=== PATIENT | male | born 1950 | race African-American/Black ===

== ENCOUNTER → 2016-09-05 | Outpatient (CLI) | payer MEDICARE, MEDICAID ==
[~2016-09-05] MED LIST: ASPI-825 PO; ATOR20TA86 PO; BIDIL PO; BUME1TAB30 PO; CARV25 PO; FAMO20 PO; FERR-89 PO; FURO20 PO; HYDR50 PO; ISOR40SR PO; OMEP20 PO; OMEP20CA10 PO; OXYC10 PO; OXYC20 PO; PRED5 PO; RANO500T3 PO; SIMV-261 PO; SPIR25TA4 PO; TAMS0.4C32 PO; VITAD400 PO; VITAD50000 PO
[2016-09-05 12:09] LABS: HEMOGLOBIN A1C 6.4 % (4.5-6.2)
[2016-09-05 12:16] LABS: BASOPHILS % (AUTO) 0.3 % (0.0-2.0); EOSINOPHILS % (AUTO) 0.3 % (1.0-6.0); HEMATOCRIT 37.5 % (41-53); HEMOGLOBIN 12.5 g/dL (13.5-17.5); LYMPHOCYTES # (AUTO) 2.5 K/uL (1.0-4.8); LYMPHOCYTES % (AUTO) 33.7 % (22.0-44.0); MEAN CORPUSCULAR HEMOGLOBIN 31.2 pg (26.0-34.0); MEAN CORPUSCULAR HGB CONC 33.2 G/dL (31.0-37.0); MEAN CORPUSCULAR VOLUME 94 fL (80-100); MONOCYTES # (AUTO) 0.7 K/uL (0.1-1.0); NEUTROPHILS # (AUTO) 4.3 K/uL (1.8-7.7); NEUTROPHILS % (AUTO) 56.7 % (40.0-70.0); PLATELET COUNT (AUTO) 170 K/uL (150-450); RED BLOOD CELL COUNT(AUTO) 3.99 MIL/uL (4.50-5.90); RED CELL DISTRIBUTION WIDTH 18.9 % (11.5-14.5); WHITE BLOOD COUNT (AUTO) 7.5 K/uL (4.5-11.0)
[2016-09-05 12:27] LABS: BILIRUBIN,TOTAL 0.6 mg/dL (0.1-1.0); CALCIUM, TOTAL 9.9 mg/dL (8.8-10.5); CHOL/HDL RATIO 2.1 (4.2-7.3); CREATININE 2.68 mg/dL (0.60-1.30); THYROID STIMULATING HORMONE 1.03 uIU/mL (0.36-3.74); TOTAL PROTEIN, SERUM 9.3 g/dL (6.4-8.2)
[2016-09-05 14:52] LABS: RBC MORPHOLOGY COMMENT ABNORMAL RBC MORPH
== END | disposition home or self-care (01) ==
LOC: LABPV 07:14
PROVIDERS: ATTEND Internal Medicine Cardiovascular Disease
DX: I11.0 Hypertensive heart disease with heart failure (principal); I50.9 Heart failure, unspecified; E11.8 Type 2 diabetes mellitus with unspecified complications; E55.9 Vitamin D deficiency, unspecified
CPT/HCPCS: 82306; 83036; 84439; 84443

== ENCOUNTER → 2016-09-07 | Outpatient (CLI) | payer MEDICARE, MEDICAID ==
[~2016-09-07] VITALS: Ht 175.3 cm; Wt 80.5 kg
[2016-09-07 08:56] VITALS: BP 85/45
== END | disposition home or self-care (01) ==
LOC: SRCNTR 08:52
PROVIDERS: ATTEND Hospitalist
DX: I10 Essential (primary) hypertension (principal); E78.5 Hyperlipidemia, unspecified; K21.9 Gastro-esophageal reflux disease without esophagitis; I50.9 Heart failure, unspecified; G89.29 Other chronic pain; J44.9 Chronic obstructive pulmonary disease, unspecified; G89.4 Chronic pain syndrome; E11.65 Type 2 diabetes mellitus with hyperglycemia; N17.9 Acute kidney failure, unspecified
CPT/HCPCS: G0463

== ENCOUNTER → 2016-11-06 | Outpatient (CLI) | payer MEDICARE, MEDICAID ==
[~2016-11-06] VITALS: Ht 175.3 cm; Wt 84.5 kg
[~2016-11-06] MED LIST changes: -FAMO20 PO; -FURO20 PO; -HYDR50 PO; -OMEP20CA10 PO; -RANO500T3 PO; -SIMV-261 PO
[2016-11-06 09:42] VITALS: BP 90/48
== END | disposition home or self-care (01) ==
LOC: SRCNTR 09:29
PROVIDERS: ATTEND Hospitalist
DX: I13.0 Hypertensive heart and chronic kidney disease with heart failure and stage 1 through stage 4 chronic kidney disease, or unspecified chronic kidney disease (principal); N18.9 Chronic kidney disease, unspecified; I50.9 Heart failure, unspecified; E78.5 Hyperlipidemia, unspecified; G47.33 Obstructive sleep apnea (adult) (pediatric); M19.90 Unspecified osteoarthritis, unspecified site; K21.9 Gastro-esophageal reflux disease without esophagitis; I25.2 Old myocardial infarction; K92.2 Gastrointestinal hemorrhage, unspecified; B19.20 Unspecified viral hepatitis C without hepatic coma; I25.10 Atherosclerotic heart disease of native coronary artery without angina pectoris; G89.29 Other chronic pain; M54.9 Dorsalgia, unspecified
CPT/HCPCS: G0463

== ENCOUNTER → 2016-11-13 | Outpatient (CLI) | payer MEDICARE, OTHER ==
[~2016-11-13] MED LIST changes: -FERR-89 PO; -ISOR40SR PO; -VITAD50000 PO
[2016-11-13 10:27] LABS: BASOPHILS # (AUTO) 0.01 K/uL (0.00-0.20); BASOPHILS % (AUTO) 0.2 % (0.0-2.0); EOSINOPHILS # (AUTO) 0.06 K/uL (0.00-0.70); EOSINOPHILS % (AUTO) 1.07 % (1.0-6.0); HEMOGLOBIN 10.3 g/dL (13.5-17.5); LYMPHOCYTES # (AUTO) 1.5 K/uL (1.0-4.8); LYMPHOCYTES % (AUTO) 25.4 % (22.0-44.0); MEAN CORPUSCULAR HGB CONC 33.1 G/dL (31.0-37.0); MEAN CORPUSCULAR VOLUME 100 fL (80-100); MONOCYTES # (AUTO) 0.2 K/uL (0.1-1.0); MONOCYTES % (AUTO) 3.9 % (2.0-9.0); NEUTROPHILS % (AUTO) 69.4 % (40.0-70.0); PLATELET COUNT (AUTO) 122 K/uL (150-450); RED CELL DISTRIBUTION WIDTH 14.5 % (11.5-14.5); WHITE BLOOD COUNT (AUTO) 5.8 K/uL (4.5-11.0)
[2016-11-13 11:02] LABS: HEMOGLOBIN A1C 6.2 % (4.5-6.2)
[2016-11-13 11:11] LABS: ALBUMIN 3.9 g/dL (3.4-5.0); BILIRUBIN,TOTAL 0.2 mg/dL (0.1-1.0); CALCIUM, TOTAL 8.9 mg/dL (8.8-10.5); CHOL/HDL RATIO 2.1 (4.2-7.3); CREATININE 1.79 mg/dL (0.60-1.30); MAGNESIUM 1.4 mg/dL (1.80-2.40); THYROID STIMULATING HORMONE 1.11 uIU/mL (0.36-3.74); TOTAL PROTEIN, SERUM 7.9 g/dL (6.4-8.2)
== END | disposition home or self-care (01) ==
LOC: LABPV 08:49
PROVIDERS: ATTEND Internal Medicine Cardiovascular Disease
DX: I11.0 Hypertensive heart disease with heart failure (principal); I50.9 Heart failure, unspecified; E11.8 Type 2 diabetes mellitus with unspecified complications; E55.9 Vitamin D deficiency, unspecified
CPT/HCPCS: 82306; 83036; 83735; 84443

== ENCOUNTER → 2016-11-29 | Outpatient (CLI) | payer MEDICARE, OTHER | END | disposition home or self-care (01) | LOC: LABPV 07:13 | PROVIDERS: ATTEND Physician Assistant | DX: R97.20 Elevated prostate specific antigen [PSA] (principal) | CPT/HCPCS: 84153 ==

== ENCOUNTER → 2017-01-09 | Outpatient (CLI) | payer MEDICARE, OTHER ==
[2017-01-09 10:00] LABS: BASOPHILS % (AUTO) 0.4 % (0.0-2.0); EOSINOPHILS % (AUTO) 3.9 % (1.0-6.0); HEMATOCRIT 32.2 % (41-53); HEMOGLOBIN 10.9 g/dL (13.5-17.5); LYMPHOCYTES # (AUTO) 1.7 K/uL (1.0-4.8); LYMPHOCYTES % (AUTO) 38.8 % (22.0-44.0); MEAN CORPUSCULAR HEMOGLOBIN 31.7 pg (26.0-34.0); MEAN CORPUSCULAR HGB CONC 33.8 G/dL (31.0-37.0); MEAN CORPUSCULAR VOLUME 94 fL (80-100); MONOCYTES # (AUTO) 0.4 K/uL (0.1-1.0); MONOCYTES % (AUTO) 8.7 % (2.0-9.0); NEUTROPHILS # (AUTO) 2.1 K/uL (1.8-7.7); NEUTROPHILS % (AUTO) 48.2 % (40.0-70.0); PLATELET COUNT (AUTO) 148 K/uL (150-450); RED BLOOD CELL COUNT(AUTO) 3.42 MIL/uL (4.50-5.90); RED CELL DISTRIBUTION WIDTH 14.5 % (11.5-14.5); WHITE BLOOD COUNT (AUTO) 4.4 K/uL (4.5-11.0)
[2017-01-09 10:12] LABS: HEMOGLOBIN A1C 5.7 % (4.5-6.2)
[2017-01-09 10:24] LABS: ALBUMIN 3.8 g/dL (3.4-5.0); BILIRUBIN,TOTAL 0.2 mg/dL (0.1-1.0); CALCIUM, TOTAL 9.5 mg/dL (8.8-10.5); CHOL/HDL RATIO 4.4 (4.2-7.3); CREATININE 1.88 mg/dL (0.60-1.30); MAGNESIUM 2.1 mg/dL (1.80-2.40); POTASSIUM 4.6 mmol/L (3.5-5.1); THYROID STIMULATING HORMONE 0.54 uIU/mL (0.36-3.74); TOTAL PROTEIN, SERUM 8.6 g/dL (6.4-8.2)
[2017-01-10 11:09] LABS: HEPATITIS Bs ANTIGEN SCREEN P Negative (Negative); HEPATITIS C AB SCREEN >11.0 s/co ratio (0.0-0.9)
== END | disposition home or self-care (01) ==
LOC: LABPV 08:13
PROVIDERS: ATTEND Internal Medicine Cardiovascular Disease
DX: I11.0 Hypertensive heart disease with heart failure (principal); I50.9 Heart failure, unspecified; E11.8 Type 2 diabetes mellitus with unspecified complications; E55.9 Vitamin D deficiency, unspecified; B19.20 Unspecified viral hepatitis C without hepatic coma
CPT/HCPCS: 80074; 82306; 83036; 83735; 84439; 84443

== ENCOUNTER → 2017-01-12 | Outpatient (CLI) | payer MEDICARE, OTHER ==
[~2017-01-12] VITALS: Ht 175.3 cm; Wt 83.0 kg
[~2017-01-12] MED LIST changes: +ISOR40SR PO
[2017-01-12 09:37] VITALS: BP 84/54
== END | disposition home or self-care (01) ==
LOC: SRCNTR 09:23
PROVIDERS: ATTEND Hospitalist
DX: G47.33 Obstructive sleep apnea (adult) (pediatric) (principal); E78.5 Hyperlipidemia, unspecified; I50.9 Heart failure, unspecified; I25.10 Atherosclerotic heart disease of native coronary artery without angina pectoris; N18.9 Chronic kidney disease, unspecified; I95.9 Hypotension, unspecified; M54.5 Low back pain; B19.20 Unspecified viral hepatitis C without hepatic coma; R09.81 Nasal congestion
CPT/HCPCS: G0463

== ENCOUNTER → 2017-03-12 | Outpatient (CLI) | payer MEDICARE, OTHER ==
[~2017-03-12] VITALS: Ht 175.3 cm; Wt 80.9 kg
[~2017-03-12] MED LIST changes: +ATOR10TA84 PO; -ATOR20TA86 PO; +BUME1TAB17 PO; -BUME1TAB30 PO; -PRED5 PO
[2017-03-12 09:42] VITALS: BP 110/70
== END | disposition home or self-care (01) ==
LOC: SRCNTR 09:39
PROVIDERS: ATTEND Hospitalist
DX: I10 Essential (primary) hypertension (principal); E78.5 Hyperlipidemia, unspecified; M54.5 Low back pain; M19.90 Unspecified osteoarthritis, unspecified site
CPT/HCPCS: G0463

== ENCOUNTER 2017-04-27 12:22 | Emergency (ER) | payer MEDICARE, OTHER ==
[~2017-04-27] VITALS: Ht 175.3 cm; Wt 81.8 kg
[~2017-04-27 12:22] MED LIST changes: -BIDIL PO; -OMEP20 PO
[2017-04-27] MEDS ORDERED: IBUPROFEN 800 MG TABLET PO ONE (14:30)
[2017-04-27 16:07] VITALS: BP 138/82
[2017-06-18] MEDS ORDERED: VITAD50000 PO (11:06)
[2017-06-18] MEDS ORDERED: ISOS1TAB2 PO (11:06)
[2017-06-18] MEDS ORDERED: NALO25TA PO (11:06)
[2017-06-18] MEDS ORDERED: FERR-89 PO (11:06)
== END 2017-04-27 16:08 | disposition home or self-care (01) ==
LOC: EMS 12:23
DX: M10.9 Gout, unspecified (principal); I11.0 Hypertensive heart disease with heart failure; I50.9 Heart failure, unspecified; I25.10 Atherosclerotic heart disease of native coronary artery without angina pectoris; I25.2 Old myocardial infarction; E78.00 Pure hypercholesterolemia, unspecified; K21.9 Gastro-esophageal reflux disease without esophagitis; F17.210 Nicotine dependence, cigarettes, uncomplicated; Z95.0 Presence of cardiac pacemaker; Z88.5 Allergy status to narcotic agent; Z88.8 Allergy status to other drugs, medicaments and biological substances
CPT/HCPCS: 99284

== ENCOUNTER → 2017-05-09 | Outpatient (CLI) | payer MEDICARE, OTHER ==
[~2017-05-09] MED LIST changes: +FERR-89 PO; +ISOS1TAB2 PO; +NALO25TA PO; +VITAD50000 PO
[2017-05-09 10:36] LABS: BASOPHILS % (AUTO) 0.5 % (0.0-2.0); EOSINOPHILS % (AUTO) 3.2 % (1.0-6.0); HEMATOCRIT 34.5 % (41-53); HEMOGLOBIN 11.6 g/dL (13.5-17.5); LYMPHOCYTES % (AUTO) 34.4 % (22.0-44.0); MEAN CORPUSCULAR HEMOGLOBIN 30.5 pg (26.0-34.0); MEAN CORPUSCULAR HGB CONC 33.8 G/dL (31.0-37.0); MEAN CORPUSCULAR VOLUME 90 fL (80-100); MONOCYTES # (AUTO) 0.4 K/uL (0.1-1.0); MONOCYTES % (AUTO) 7.1 % (2.0-9.0); NEUTROPHILS # (AUTO) 3.1 K/uL (1.8-7.7); NEUTROPHILS % (AUTO) 54.8 % (40.0-70.0); PLATELET COUNT (AUTO) 159 K/uL (150-450); RED BLOOD CELL COUNT(AUTO) 3.82 MIL/uL (4.50-5.90); RED CELL DISTRIBUTION WIDTH 15.7 % (11.5-14.5)
[2017-05-09 10:55] LABS: HEMOGLOBIN A1C 6.4 % (4.5-6.2)
[2017-05-09 11:01] LABS: BILIRUBIN,TOTAL 0.2 mg/dL (0.1-1.0); CALCIUM, TOTAL 9.8 mg/dL (8.8-10.5); CHOL/HDL RATIO 2.7 (4.2-7.3); CREATININE 1.67 mg/dL (0.60-1.30); FREE T4 (FREE THYROXINE) 0.9 ng/dL (0.76-1.46); MAGNESIUM 2.4 mg/dL (1.80-2.40); THYROID STIMULATING HORMONE 0.79 uIU/mL (0.36-3.74)
== END | disposition home or self-care (01) ==
LOC: LABPV 08:21
PROVIDERS: ATTEND Internal Medicine Cardiovascular Disease
DX: I11.0 Hypertensive heart disease with heart failure (principal); I50.9 Heart failure, unspecified; E11.65 Type 2 diabetes mellitus with hyperglycemia; E55.9 Vitamin D deficiency, unspecified
CPT/HCPCS: 82306; 83036; 83735; 84439; 84443

== ENCOUNTER → 2017-05-09 | Outpatient (CLI) | payer MEDICARE, OTHER | END | disposition home or self-care (01) | LOC: LABPV 08:26 | PROVIDERS: ATTEND Urology | DX: C61 Malignant neoplasm of prostate (principal) | CPT/HCPCS: 84153 ==

== ENCOUNTER → 2017-06-06 | Outpatient (CLI) | payer MEDICARE, OTHER ==
[2017-06-06 09:49] LABS: BASOPHILS # (AUTO) 0.02 K/uL (0.00-0.20); BASOPHILS % (AUTO) 0.4 % (0.0-2.0); EOSINOPHILS # (AUTO) 0.12 K/uL (0.00-0.70); EOSINOPHILS % (AUTO) 2.25 % (1.0-6.0); HEMATOCRIT 32.3 % (41-53); HEMOGLOBIN 10.9 g/dL (13.5-17.5); LYMPHOCYTES # (AUTO) 1.9 K/uL (1.0-4.8); LYMPHOCYTES % (AUTO) 36.2 % (22.0-44.0); MEAN CORPUSCULAR HEMOGLOBIN 30.4 pg (26.0-34.0); MEAN CORPUSCULAR HGB CONC 33.8 G/dL (31.0-37.0); MEAN CORPUSCULAR VOLUME 90 fL (80-100); MONOCYTES # (AUTO) 0.5 K/uL (0.1-1.0); NEUTROPHILS # (AUTO) 2.8 K/uL (1.8-7.7); NEUTROPHILS % (AUTO) 52.1 % (40.0-70.0); PLATELET COUNT (AUTO) 159 K/uL (150-450); RED BLOOD CELL COUNT(AUTO) 3.59 MIL/uL (4.50-5.90); RED CELL DISTRIBUTION WIDTH 16.5 % (11.5-14.5); WHITE BLOOD COUNT (AUTO) 5.3 K/uL (4.5-11.0)
[2017-06-06 10:10] LABS: ALBUMIN 3.5 g/dL (3.4-5.0); BILIRUBIN,TOTAL 0.3 mg/dL (0.1-1.0); CALCIUM, TOTAL 9.5 mg/dL (8.8-10.5); CHOL/HDL RATIO 2.7 (4.2-7.3); CREATININE 1.71 mg/dL (0.60-1.30); POTASSIUM 4.3 mmol/L (3.5-5.1); TOTAL PROTEIN, SERUM 8.1 g/dL (6.4-8.2)
== END | disposition home or self-care (01) ==
LOC: LABPV 08:06
PROVIDERS: ATTEND Internal Medicine Cardiovascular Disease
DX: I11.0 Hypertensive heart disease with heart failure (principal); I50.9 Heart failure, unspecified; E11.65 Type 2 diabetes mellitus with hyperglycemia; E55.9 Vitamin D deficiency, unspecified

== ENCOUNTER → 2017-06-18 | Outpatient (CLI) | payer MEDICARE, OTHER ==
[~2017-06-18] VITALS: Ht 175.3 cm; Wt 80.4 kg
[2017-06-18 10:58] VITALS: BP 112/66
== END | disposition home or self-care (01) ==
LOC: SRCNTR 10:45
PROVIDERS: ATTEND Hospitalist
DX: I11.0 Hypertensive heart disease with heart failure (principal); I50.9 Heart failure, unspecified; G47.33 Obstructive sleep apnea (adult) (pediatric); E78.5 Hyperlipidemia, unspecified; B19.20 Unspecified viral hepatitis C without hepatic coma; I25.10 Atherosclerotic heart disease of native coronary artery without angina pectoris; I25.2 Old myocardial infarction; K21.9 Gastro-esophageal reflux disease without esophagitis; G89.4 Chronic pain syndrome; N40.1 Benign prostatic hyperplasia with lower urinary tract symptoms; Z79.82 Long term (current) use of aspirin; Z95.810 Presence of automatic (implantable) cardiac defibrillator
CPT/HCPCS: G0463

== ENCOUNTER → 2017-07-18 | Outpatient (CLI) | payer MEDICARE, OTHER ==
[~2017-07-18] MED LIST changes: -ISOR40SR PO
[2017-07-18 10:41] LABS: BASOPHILS # (AUTO) 0.04 K/uL (0.00-0.20); BASOPHILS % (AUTO) 0.8 % (0.0-2.0); EOSINOPHILS # (AUTO) 0.14 K/uL (0.00-0.70); EOSINOPHILS % (AUTO) 2.54 % (1.0-6.0); HEMATOCRIT 30.2 % (41-53); HEMOGLOBIN 9.9 g/dL (13.5-17.5); LYMPHOCYTES # (AUTO) 2.8 K/uL (1.0-4.8); MEAN CORPUSCULAR HEMOGLOBIN 30.8 pg (26.0-34.0); MEAN CORPUSCULAR HGB CONC 32.7 G/dL (31.0-37.0); MEAN CORPUSCULAR VOLUME 94 fL (80-100); MONOCYTES # (AUTO) 0.4 K/uL (0.1-1.0); MONOCYTES % (AUTO) 7.5 % (2.0-9.0); NEUTROPHILS # (AUTO) 2.2 K/uL (1.8-7.7); NEUTROPHILS % (AUTO) 39.2 % (40.0-70.0); PLATELET COUNT (AUTO) 175 K/uL (150-450); RED BLOOD CELL COUNT(AUTO) 3.21 MIL/uL (4.50-5.90); RED CELL DISTRIBUTION WIDTH 16.4 % (11.5-14.5)
[2017-07-18 11:21] LABS: ALBUMIN 3.8 g/dL (3.4-5.0); BILIRUBIN,TOTAL 0.2 mg/dL (0.1-1.0); CALCIUM, TOTAL 9.6 mg/dL (8.8-10.5); CHOL/HDL RATIO 2.1 (4.2-7.3); CREATININE 1.47 mg/dL (0.60-1.30); POTASSIUM 4.1 mmol/L (3.5-5.1); TOTAL PROTEIN, SERUM 8.8 g/dL (6.4-8.2)
== END | disposition home or self-care (01) ==
LOC: LABPV 08:23
PROVIDERS: ATTEND Internal Medicine Cardiovascular Disease
DX: I11.0 Hypertensive heart disease with heart failure (principal); I50.9 Heart failure, unspecified; E11.8 Type 2 diabetes mellitus with unspecified complications; E55.9 Vitamin D deficiency, unspecified

== ENCOUNTER → 2017-08-13 | Outpatient (CLI) | payer MEDICARE, OTHER | END | disposition home or self-care (01) | LOC: LABPV 09:01 | PROVIDERS: ATTEND Urology | DX: C61 Malignant neoplasm of prostate (principal) | CPT/HCPCS: 84153 ==

== ENCOUNTER → 2017-10-18 | Outpatient (CLI) | payer MEDICARE, OTHER ==
[2017-10-18 12:16] LABS: BASOPHILS % (AUTO) 0.5 % (0.0-2.0); EOSINOPHILS % (AUTO) 1.8 % (1.0-6.0); HEMOGLOBIN 11.3 g/dL (13.5-17.5); LYMPHOCYTES # (AUTO) 1.8 K/uL (1.0-4.8); LYMPHOCYTES % (AUTO) 25.8 % (22.0-44.0); MEAN CORPUSCULAR HEMOGLOBIN 32.1 pg (26.0-34.0); MEAN CORPUSCULAR HGB CONC 34.2 G/dL (31.0-37.0); MEAN CORPUSCULAR VOLUME 94 fL (80-100); MONOCYTES # (AUTO) 0.6 K/uL (0.1-1.0); MONOCYTES % (AUTO) 8.8 % (2.0-9.0); NEUTROPHILS # (AUTO) 4.5 K/uL (1.8-7.7); NEUTROPHILS % (AUTO) 63.1 % (40.0-70.0); PLATELET COUNT (AUTO) 208 K/uL (150-450); RED BLOOD CELL COUNT(AUTO) 3.51 MIL/uL (4.50-5.90); RED CELL DISTRIBUTION WIDTH 15.8 % (11.5-14.5)
[2017-10-18 12:25] LABS: ALBUMIN 3.6 g/dL (3.4-5.0); BILIRUBIN,TOTAL 0.2 mg/dL (0.1-1.0); CALCIUM, TOTAL 9.1 mg/dL (8.8-10.5); CREATININE 2.11 mg/dL (0.60-1.30); POTASSIUM 4.5 mmol/L (3.5-5.1); TOTAL PROTEIN, SERUM 8.5 g/dL (6.4-8.2)
== END | disposition home or self-care (01) ==
LOC: LABPV 08:58
PROVIDERS: ATTEND Internal Medicine Cardiovascular Disease
DX: I11.0 Hypertensive heart disease with heart failure (principal); I50.9 Heart failure, unspecified; E11.8 Type 2 diabetes mellitus with unspecified complications; E55.9 Vitamin D deficiency, unspecified

== ENCOUNTER → 2017-11-13 | Outpatient (CLI) | payer MEDICARE, OTHER ==
[~2017-11-13] MED LIST changes: +CARV3 PO; -SPIR25TA4 PO; +SPIR25TA6 PO
== END | disposition home or self-care (01) ==
LOC: LABPV 08:26
PROVIDERS: ATTEND Urology
DX: C61 Malignant neoplasm of prostate (principal)
CPT/HCPCS: 84153

== ENCOUNTER 2017-11-22 09:07 | Emergency (ER) | payer MEDICARE, OTHER ==
[~2017-11-22] VITALS: Ht 175.3 cm; Wt 77.2 kg
[~2017-11-22 09:07] MED LIST changes: -CARV25 PO; -SPIR25TA6 PO
[2017-11-22 13:41] VITALS: BP 132/75
== END 2017-11-22 13:44 | disposition home or self-care (01) ==
LOC: EMS 09:10
DX: M54.2 Cervicalgia (principal); R51 Headache; I11.0 Hypertensive heart disease with heart failure; I50.9 Heart failure, unspecified; E78.00 Pure hypercholesterolemia, unspecified; I25.10 Atherosclerotic heart disease of native coronary artery without angina pectoris; K21.9 Gastro-esophageal reflux disease without esophagitis; F17.210 Nicotine dependence, cigarettes, uncomplicated; Z88.5 Allergy status to narcotic agent; Z88.8 Allergy status to other drugs, medicaments and biological substances; V43.62XA Car passenger injured in collision with other type car in traffic accident, initial encounter; Y93.89 Activity, other specified; Y92.89 Other specified places as the place of occurrence of the external cause; Y99.8 Other external cause status
CPT/HCPCS: 70450; 72125; 99284

== ENCOUNTER → 2018-01-22 | Outpatient (CLI) | payer MEDICARE, OTHER ==
[2018-01-22 12:49] LABS: CALCIUM, TOTAL 9.2 mg/dL (8.8-10.5); CREATININE 1.75 mg/dL (0.60-1.30); POTASSIUM 3.7 mmol/L (3.5-5.1)
== END | disposition home or self-care (01) ==
LOC: LABPV 10:54
PROVIDERS: ATTEND Urology
DX: C61 Malignant neoplasm of prostate (principal); I11.0 Hypertensive heart disease with heart failure; I50.9 Heart failure, unspecified; E78.00 Pure hypercholesterolemia, unspecified

== ENCOUNTER → 2018-01-23 | Outpatient (CLI) | payer MEDICARE, OTHER ==
[2018-01-23 10:05] LABS: BASOPHILS % (AUTO) 0.2 % (0.0-2.0); EOSINOPHILS % (AUTO) 2.2 % (1.0-6.0); HEMATOCRIT 34.5 % (41-53); HEMOGLOBIN 11.8 g/dL (13.5-17.5); LYMPHOCYTES # (AUTO) 2.3 K/uL (1.0-4.8); LYMPHOCYTES % (AUTO) 35.8 % (22.0-44.0); MEAN CORPUSCULAR HEMOGLOBIN 32.3 pg (26.0-34.0); MEAN CORPUSCULAR HGB CONC 34.2 G/dL (31.0-37.0); MEAN CORPUSCULAR VOLUME 95 fL (80-100); MONOCYTES # (AUTO) 0.6 K/uL (0.1-1.0); MONOCYTES % (AUTO) 9.6 % (2.0-9.0); NEUTROPHILS # (AUTO) 3.3 K/uL (1.8-7.7); NEUTROPHILS % (AUTO) 52.2 % (40.0-70.0); PLATELET COUNT (AUTO) 177 K/uL (150-450); RED BLOOD CELL COUNT(AUTO) 3.65 MIL/uL (4.50-5.90); RED CELL DISTRIBUTION WIDTH 15.4 % (11.5-14.5)
[2018-01-23 10:13] LABS: HEMOGLOBIN A1C 5.5 % (4.5-6.2)
[2018-01-23 10:23] LABS: ALBUMIN 3.6 g/dL (3.4-5.0); BILIRUBIN,TOTAL 0.2 mg/dL (0.1-1.0); CALCIUM, TOTAL 9.3 mg/dL (8.8-10.5); CHOL/HDL RATIO 1.9 (4.2-7.3); CREATININE 1.49 mg/dL (0.60-1.30); FREE T4 (FREE THYROXINE) 1.04 ng/dL (0.76-1.46); MAGNESIUM 2.1 mg/dL (1.80-2.40); POTASSIUM 4.1 mmol/L (3.5-5.1); THYROID STIMULATING HORMONE 0.81 uIU/mL (0.36-3.74); TOTAL PROTEIN, SERUM 8.3 g/dL (6.4-8.2)
== END | disposition home or self-care (01) ==
LOC: LABPV 07:44
PROVIDERS: ATTEND Internal Medicine Cardiovascular Disease
DX: I11.0 Hypertensive heart disease with heart failure (principal); I50.9 Heart failure, unspecified; E11.8 Type 2 diabetes mellitus with unspecified complications; E55.9 Vitamin D deficiency, unspecified; D56.5 Hemoglobin E-beta thalassemia; E78.00 Pure hypercholesterolemia, unspecified
CPT/HCPCS: 82306; 83036; 83735; 84439; 84443

== ENCOUNTER → 2018-02-07 | Outpatient (CLI) | payer MEDICARE, OTHER ==
[~2018-02-07] MED LIST changes: +IOVERSOL 350 MG/ML 150 ML VIAL ONE; +SODIUM CHLORIDE 0.9% 100 ML ONE
== END | disposition home or self-care (01) ==
LOC: RADMN 09:59
PROVIDERS: ATTEND Urology
DX: M47.896 Other spondylosis, lumbar region (principal); M51.36 Other intervertebral disc degeneration, lumbar region; K40.90 Unilateral inguinal hernia, without obstruction or gangrene, not specified as recurrent; I70.0 Atherosclerosis of aorta; R97.20 Elevated prostate specific antigen [PSA]; I13.0 Hypertensive heart and chronic kidney disease with heart failure and stage 1 through stage 4 chronic kidney disease, or unspecified chronic kidney disease; I50.9 Heart failure, unspecified; E11.22 Type 2 diabetes mellitus with diabetic chronic kidney disease; N18.9 Chronic kidney disease, unspecified; E11.65 Type 2 diabetes mellitus with hyperglycemia; E78.5 Hyperlipidemia, unspecified; E78.00 Pure hypercholesterolemia, unspecified; J44.9 Chronic obstructive pulmonary disease, unspecified; F17.210 Nicotine dependence, cigarettes, uncomplicated; K21.9 Gastro-esophageal reflux disease without esophagitis; Z88.8 Allergy status to other drugs, medicaments and biological substances; Z88.5 Allergy status to narcotic agent; Z79.899 Other long term (current) drug therapy
CPT/HCPCS: 72194; J7050; Q9967

== ENCOUNTER 2018-03-31 16:15 | Emergency (ER) | payer MEDICARE, OTHER ==
[~2018-03-31] VITALS: Ht 172.7 cm; Wt 78.0 kg
[~2018-03-31 16:15] MED LIST changes: -IOVERSOL 350 MG/ML 150 ML VIAL ONE; -SODIUM CHLORIDE 0.9% 100 ML ONE
[2018-03-31] MEDS ORDERED: SODIUM CHLORIDE 0.9% 1,000 ML IV ONE (17:30)
[2018-03-31] MEDS ORDERED: KETOROLAC TROMETHAMINE 30 MG/ML VIAL IVP ONE (17:30)
[2018-03-31 17:45] LABS: BASOPHILS % (AUTO) 0.3 % (0.0-2.0); EOSINOPHILS % (AUTO) 1.3 % (1.0-6.0); HEMATOCRIT 35.5 % (41-53); LYMPHOCYTES # (AUTO) 2.2 K/uL (1.0-4.8); LYMPHOCYTES % (AUTO) 37.1 % (22.0-44.0); MEAN CORPUSCULAR HEMOGLOBIN 32.2 pg (26.0-34.0); MEAN CORPUSCULAR HGB CONC 33.7 G/dL (31.0-37.0); MEAN CORPUSCULAR VOLUME 96 fL (80-100); MONOCYTES # (AUTO) 0.5 K/uL (0.1-1.0); NEUTROPHILS # (AUTO) 3.2 K/uL (1.8-7.7); NEUTROPHILS % (AUTO) 53.3 % (40.0-70.0); PLATELET COUNT (AUTO) 164 K/uL (150-450); RED BLOOD CELL COUNT(AUTO) 3.71 MIL/uL (4.50-5.90); RED CELL DISTRIBUTION WIDTH 14.7 % (11.5-14.5)
[2018-03-31 17:53] LABS: ANION GAP 8 mmol/L (8-16); CALCIUM, TOTAL 9.1 mg/dL (8.8-10.5); CARBON DIOXIDE 26 mmol/L (22-29); CHLORIDE 105 mmol/L (98-107); CREATININE 1.27 mg/dL (0.60-1.30); GLOMERULAR FILTR. RATE CALC > 60 mL/min (>60); GLUCOSE,RANDOM 95 mg/dL (70-110); SODIUM SERUM 139 mmol/L (136-145); UREA NITROGEN, BLOOD 17 mg/dL (7-18)
[2018-03-31 17:56] LABS: INR 1.1 (0.9-1.1); PROTHROMBIN TIME 11.1 SEC (9.4-11.6)
[2018-03-31 18:14] LABS: APPEARANCE,URINE CLEAR (CLEAR); BILIRUBIN,URINE NEGATIVE (NEGATIVE); GLUCOSE, URINE (UA) NEGATIVE (NEGATIVE); KETONES,URINE NEGATIVE (NEGATIVE); LEUKOCYTE ESTERASE ,URINE SMALL (NEGATIVE); NITRATE,URINE NEGATIVE (NEGATIVE); OCCULT BLOOD,URINE NEGATIVE (NEGATIVE); PROTEIN,URINE NEGATIVE (NEGATIVE); UROBILINOGEN,URINE 0.2 mg/dL (<=1.0)
[2018-03-31 18:17] LABS: ALANINE AMINOTRANSFERASE 26 U/L (12-78); ALBUMIN 3.5 g/dL (3.4-5.0); ALKALINE PHOSPHATASE 68 U/L (46-116); ASPARTATE AMINOTRANSFERASE 22 U/L (15-37); BILIRUBIN,TOTAL 0.2 mg/dL (0.1-1.0); CREATINE KINASE, TOTAL ONLY 162 U/L (39-308); LIPASE 299 U/L (73-393); TOTAL PROTEIN, SERUM 8.1 g/dL (6.4-8.2)
[2018-03-31 18:34] LABS: BACTERIA,URINE Few /HPF (None Seen); RBC,URINE 0-2 /HPF (0-2); SQUAMOUS EPITHELIAL CELL,UR Moderate /LPF (None Seen); WBC,URINE 26-50 /HPF (0-5)
[2018-03-31] MEDS ORDERED: CefTRIAXone SODIUM 1 GM in DEXTROSE 5%-WATER 10 ML IV ONE (19:15)
[2018-03-31 20:30] VITALS: BP 156/96
== END 2018-03-31 20:38 | disposition home or self-care (01) ==
LOC: EMS 16:16
DX: N39.0 Urinary tract infection, site not specified (principal); F17.210 Nicotine dependence, cigarettes, uncomplicated; I25.10 Atherosclerotic heart disease of native coronary artery without angina pectoris; I11.0 Hypertensive heart disease with heart failure; I50.9 Heart failure, unspecified; I25.2 Old myocardial infarction; N48.30 Priapism, unspecified; K21.9 Gastro-esophageal reflux disease without esophagitis; E78.00 Pure hypercholesterolemia, unspecified; Z95.0 Presence of cardiac pacemaker; Z98.890 Other specified postprocedural states; Z89.021 Acquired absence of right finger(s); Z88.5 Allergy status to narcotic agent; Z88.8 Allergy status to other drugs, medicaments and biological substances; Z79.82 Long term (current) use of aspirin; Z79.891 Long term (current) use of opiate analgesic; Z79.899 Other long term (current) drug therapy
CPT/HCPCS: 36415; 80053; 81001; 82550; 83690; 84484; 85025; 85610; 85730; 87086; 93005; 96365; 96375; 99285; J0696; J1885; J7030; J7060

== ENCOUNTER → 2018-04-04 | Outpatient (CLI) | payer MEDICARE, MEDICAID ==
[~2018-04-04] MED LIST changes: -OXYC10 PO; -VITAD400 PO
[2018-04-04 11:03] LABS: BASOPHILS % (AUTO) 0.7 % (0.0-2.0); EOSINOPHILS % (AUTO) 1.8 % (1.0-6.0); HEMATOCRIT 31.3 % (41-53); HEMOGLOBIN 10.6 g/dL (13.5-17.5); LYMPHOCYTES # (AUTO) 1.6 K/uL (1.0-4.8); LYMPHOCYTES % (AUTO) 31.1 % (22.0-44.0); MEAN CORPUSCULAR HEMOGLOBIN 32.6 pg (26.0-34.0); MEAN CORPUSCULAR HGB CONC 33.8 G/dL (31.0-37.0); MEAN CORPUSCULAR VOLUME 96 fL (80-100); MONOCYTES # (AUTO) 0.5 K/uL (0.1-1.0); MONOCYTES % (AUTO) 10.3 % (2.0-9.0); NEUTROPHILS # (AUTO) 2.9 K/uL (1.8-7.7); NEUTROPHILS % (AUTO) 56.1 % (40.0-70.0); PLATELET COUNT (AUTO) 148 K/uL (150-450); RED BLOOD CELL COUNT(AUTO) 3.26 MIL/uL (4.50-5.90)
[2018-04-04 11:10] LABS: HEMOGLOBIN A1C 5.5 % (4.5-6.2)
[2018-04-04 11:18] LABS: ALBUMIN 3.6 g/dL (3.4-5.0); BILIRUBIN,TOTAL 0.2 mg/dL (0.1-1.0); CALCIUM, TOTAL 9.4 mg/dL (8.8-10.5); CHOL/HDL RATIO 2.2 (4.2-7.3); CREATININE 1.53 mg/dL (0.60-1.30); FREE T4 (FREE THYROXINE) 1.09 ng/dL (0.76-1.46); POTASSIUM 4.7 mmol/L (3.5-5.1); THYROID STIMULATING HORMONE 0.74 uIU/mL (0.36-3.74)
== END | disposition home or self-care (01) ==
LOC: LABPV 08:39
PROVIDERS: ATTEND Internal Medicine Cardiovascular Disease
DX: I11.0 Hypertensive heart disease with heart failure (principal); I50.9 Heart failure, unspecified; E11.8 Type 2 diabetes mellitus with unspecified complications; E55.9 Vitamin D deficiency, unspecified; D56.5 Hemoglobin E-beta thalassemia
CPT/HCPCS: 82306; 83036; 83735; 84439; 84443

== ENCOUNTER → 2018-04-04 | Outpatient (CLI) | payer MEDICARE, MEDICAID | END | disposition home or self-care (01) | LOC: LABPV 08:46 | PROVIDERS: ATTEND Urology | DX: R97.20 Elevated prostate specific antigen [PSA] (principal) | CPT/HCPCS: 84153 ==

== ENCOUNTER 2018-05-13 17:26 | Inpatient (IN) | payer MEDICARE, OTHER ==
[~2018-05-13] VITALS: Ht 175.3 cm; Wt 75.7 kg
[2018-05-13 16:50] VITALS: BP 156/90
[2018-05-13] MEDS ORDERED: ACETAMINOPHEN 325 MG TABLET PO PRN (17:45)
[2018-05-13] MEDS ORDERED: ONDANSETRON HCL 4 MG/2 ML VIAL IVP PRN (19:00)
[2018-05-13] MEDS ORDERED: ZOLPIDEM TARTRATE 5 MG TABLET PO PRN (19:00)
[2018-05-13] MEDS ORDERED: OxyCODONE HCL/ACETAMINOPHEN 5-325 MG TABLET PO PRN (19:00)
[2018-05-13] MEDS ORDERED: BENZOCAINE/MENTHOL LOZENGE PO PRN (19:00)
[2018-05-13] MEDS ORDERED: DiphenhydrAMINE HCL 50 MG/ML VIAL IVP PRN (19:00)
[2018-05-13] MEDS ORDERED: BISACODYL 10 MG RECTAL RECTAL SUPPOSITORY PR PRN (19:00)
[2018-05-13] MEDS ORDERED: MAG HYDROX/AL HYDROX/SIMETH 30 ML SUSP UDCUP PO PRN (19:00)
[2018-05-13] MEDS ORDERED: HYDROmorphone 2 MG/ML SYRINGE IVP PRN (19:00)
[2018-05-13 20:27] VITALS: BP 145/106
[2018-05-13] MEDS: ISOSORB DINIT/HYDRALAZINE HCL 20-37.5 MG TABLET PO SCH (20:28)
[2018-05-13] MEDS: SENNA 187 MG TABLET PO SCH (20:29)
[2018-05-13] MEDS: CARVEDILOL 3.125 MG TABLET PO SCH (20:29)
[2018-05-13] MEDS: DOCUSATE SODIUM 100 MG CAPSULE PO SCH (20:29)
[2018-05-13] MEDS: OxyCODONE HCL 10 MG ER TABLET PO SCH (20:29)
[2018-05-13] MEDS ORDERED: ENOXAPARIN SODIUM 30 MG/0.3 ML PF SYRINGE SQ SCH (21:00)
[2018-05-14 03:15] VITALS: BP 141/81
[2018-05-14] MEDS ORDERED: ONDANSETRON HCL 4 MG TABLET PO PRN (03:45)
[2018-05-14 06:28] LABS: BASOPHILS % (AUTO) 0.2 % (0.0-2.0); EOSINOPHILS % (AUTO) 0.1 % (1.0-6.0); HEMATOCRIT 37.8 % (41-53); LYMPHOCYTES # (AUTO) 2.6 K/uL (1.0-4.8); LYMPHOCYTES % (AUTO) 19.6 % (22.0-44.0); MEAN CORPUSCULAR HEMOGLOBIN 31.8 pg (26.0-34.0); MEAN CORPUSCULAR HGB CONC 34.4 G/dL (31.0-37.0); MEAN CORPUSCULAR VOLUME 92 fL (80-100); MONOCYTES # (AUTO) 1.2 K/uL (0.1-1.0); MONOCYTES % (AUTO) 8.9 % (2.0-9.0); NEUTROPHILS # (AUTO) 9.5 K/uL (1.8-7.7); NEUTROPHILS % (AUTO) 71.2 % (40.0-70.0); PLATELET COUNT (AUTO) 347 K/uL (150-450); RED BLOOD CELL COUNT(AUTO) 4.09 MIL/uL (4.50-5.90)
[2018-05-14 06:48] LABS: ALANINE AMINOTRANSFERASE 33 U/L (12-78); ALKALINE PHOSPHATASE 88 U/L (46-116); ANION GAP 8 mmol/L (8-16); ASPARTATE AMINOTRANSFERASE 21 U/L (15-37); BILIRUBIN,TOTAL 0.2 mg/dL (0.1-1.0); CALCIUM, TOTAL 9.5 mg/dL (8.8-10.5); CARBON DIOXIDE 29 mmol/L (22-29); CHLORIDE 97 mmol/L (98-107); CREATININE 1.31 mg/dL (0.60-1.30); GLOMERULAR FILTR. RATE CALC > 60 mL/min (>60); GLUCOSE,RANDOM 104 mg/dL (70-110); POTASSIUM 4.3 mmol/L (3.5-5.1); SODIUM SERUM 134 mmol/L (136-145); TOTAL PROTEIN, SERUM 8.7 g/dL (6.4-8.2); UREA NITROGEN, BLOOD 45 mg/dL (7-18)
[2018-05-14 08:09] VITALS: BP 142/82
[2018-05-14] MEDS: ATORVASTATIN CALCIUM 10 MG TABLET PO SCH (08:21)
[2018-05-14] MEDS: BUMETANIDE 1 MG TABLET PO SCH (08:21)
[2018-05-14] MEDS: TAMSULOSIN HCL 0.4 MG CAPSULE PO SCH (08:21)
[2018-05-14] MEDS: ISOSORB DINIT/HYDRALAZINE HCL 20-37.5 MG TABLET PO SCH ×3 (08:21→20:50)
[2018-05-14] MEDS: FERROUS SULFATE 325 MG EC TABLET PO SCH ×2 (08:21→17:36)
[2018-05-14] MEDS: DOCUSATE SODIUM 100 MG CAPSULE PO SCH ×2 (08:21→20:50)
[2018-05-14] MEDS: CARVEDILOL 3.125 MG TABLET PO SCH ×2 (08:21→20:50)
[2018-05-14] MEDS: PANTOPRAZOLE SODIUM 40 MG DR TABLET PO SCH (08:22)
[2018-05-14] MEDS: ASPIRIN 81 MG CHEWABLE TABLET PO SCH (08:22)
[2018-05-14] MEDS: OxyCODONE HCL 10 MG ER TABLET PO SCH ×3 (08:23→20:50)
[2018-05-14] MEDS ORDERED: MAGNESIUM CITRATE 300 ML ORAL SOLUTION PO ONE (13:45)
[2018-05-14] MEDS: OxyCODONE HCL/ACETAMINOPHEN 5-325 MG TABLET PO PRN (14:40)
[2018-05-14 15:40] VITALS: BP 145/88
[2018-05-14 16:52] VITALS: BP 123/87
[2018-05-14 20:40] VITALS: BP 125/82
[2018-05-14] MEDS: SENNA 187 MG TABLET PO SCH (20:50)
[2018-05-14] MEDS: MAGNESIUM HYDROXIDE SUSPENSION 30 ML UDCUP PO PRN (20:50)
[2018-05-15] VITALS: BP 136/79
[2018-05-15] MEDS: OxyCODONE HCL/ACETAMINOPHEN 5-325 MG TABLET PO PRN ×3 (02:03→13:33)
[2018-05-15] MEDS: MAGNESIUM HYDROXIDE SUSPENSION 30 ML UDCUP PO PRN (05:56)
[2018-05-15 07:30] VITALS: BP 101/68
[2018-05-15] MEDS: OxyCODONE HCL 10 MG ER TABLET PO SCH ×3 (07:58→20:53)
[2018-05-15] MEDS: DOCUSATE SODIUM 100 MG CAPSULE PO SCH ×2 (07:59→20:53)
[2018-05-15] MEDS: PANTOPRAZOLE SODIUM 40 MG DR TABLET PO SCH (07:59)
[2018-05-15] MEDS: TAMSULOSIN HCL 0.4 MG CAPSULE PO SCH (07:59)
[2018-05-15] MEDS: BUMETANIDE 1 MG TABLET PO SCH (07:59)
[2018-05-15] MEDS: FERROUS SULFATE 325 MG EC TABLET PO SCH ×2 (07:59→16:41)
[2018-05-15] MEDS: ATORVASTATIN CALCIUM 10 MG TABLET PO SCH (07:59)
[2018-05-15] MEDS: ASPIRIN 81 MG CHEWABLE TABLET PO SCH (08:00)
[2018-05-15 08:30] VITALS: BP 117/72
[2018-05-15] MEDS: CARVEDILOL 3.125 MG TABLET PO SCH ×2 (09:34→20:53)
[2018-05-15] MEDS: ISOSORB DINIT/HYDRALAZINE HCL 20-37.5 MG TABLET PO SCH ×3 (09:34→20:53)
[2018-05-15] MEDS: LUBIPROSTONE 24 MCG CAPSULE PO SCH (12:28)
[2018-05-15 16:02] VITALS: BP 102/62
[2018-05-15 16:40] VITALS: BP 104/74
[2018-05-15 20:50] VITALS: BP 100/62
[2018-05-15] MEDS: SENNA 187 MG TABLET PO SCH (20:53)
[2018-05-16 00:26] VITALS: BP 105/68
[2018-05-16] MEDS: OxyCODONE HCL/ACETAMINOPHEN 5-325 MG TABLET PO PRN ×2 (00:56→06:59)
[2018-05-16] MEDS: MAGNESIUM HYDROXIDE SUSPENSION 30 ML UDCUP PO PRN (06:59)
[2018-05-16 07:00] VITALS: BP 124/77
[2018-05-16] MEDS: LUBIPROSTONE 24 MCG CAPSULE PO SCH (08:12)
[2018-05-16] MEDS: ISOSORB DINIT/HYDRALAZINE HCL 20-37.5 MG TABLET PO SCH ×3 (08:12→20:32)
[2018-05-16] MEDS: ASPIRIN 81 MG CHEWABLE TABLET PO SCH (08:13)
[2018-05-16] MEDS: TAMSULOSIN HCL 0.4 MG CAPSULE PO SCH (08:13)
[2018-05-16] MEDS: BUMETANIDE 1 MG TABLET PO SCH (08:13)
[2018-05-16] MEDS: OxyCODONE HCL 10 MG ER TABLET PO SCH ×3 (08:13→20:36)
[2018-05-16] MEDS: DOCUSATE SODIUM 100 MG CAPSULE PO SCH ×2 (08:13→20:32)
[2018-05-16] MEDS: FERROUS SULFATE 325 MG EC TABLET PO SCH ×2 (08:13→16:31)
[2018-05-16] MEDS: PANTOPRAZOLE SODIUM 40 MG DR TABLET PO SCH (08:13)
[2018-05-16] MEDS: ATORVASTATIN CALCIUM 10 MG TABLET PO SCH (08:13)
[2018-05-16] MEDS: CARVEDILOL 3.125 MG TABLET PO SCH ×2 (08:13→20:32)
[2018-05-16] MEDS: ENOXAPARIN SODIUM 30 MG/0.3 ML PF SYRINGE SQ SCH ×2 (08:14→20:32)
[2018-05-16 12:00] VITALS: BP 117/79
[2018-05-16 16:01] VITALS: BP 122/71
[2018-05-16 20:28] VITALS: BP 107/67
[2018-05-16] MEDS: PREGABALIN 75 MG CAPSULE PO SCH (20:32)
[2018-05-16] MEDS: SENNA 187 MG TABLET PO SCH (20:33)
[2018-05-17 01:56] VITALS: BP 113/59
[2018-05-17] MEDS: OxyCODONE HCL/ACETAMINOPHEN 5-325 MG TABLET PO PRN ×3 (01:56→14:49)
[2018-05-17] MEDS: DOCUSATE SODIUM 283 MG/5 ML MINI-ENEMA PR PRN (05:50)
[2018-05-17 07:30] VITALS: BP 107/64
[2018-05-17] MEDS: BUMETANIDE 1 MG TABLET PO SCH (08:06)
[2018-05-17] MEDS: ISOSORB DINIT/HYDRALAZINE HCL 20-37.5 MG TABLET PO SCH ×3 (08:06→20:17)
[2018-05-17] MEDS: PREGABALIN 75 MG CAPSULE PO SCH ×3 (08:06→20:17)
[2018-05-17] MEDS: PANTOPRAZOLE SODIUM 40 MG DR TABLET PO SCH (08:06)
[2018-05-17] MEDS: LUBIPROSTONE 24 MCG CAPSULE PO SCH (08:06)
[2018-05-17] MEDS: ENOXAPARIN SODIUM 30 MG/0.3 ML PF SYRINGE SQ SCH ×2 (08:06→20:17)
[2018-05-17] MEDS: FERROUS SULFATE 325 MG EC TABLET PO SCH ×2 (08:06→17:06)
[2018-05-17] MEDS: TAMSULOSIN HCL 0.4 MG CAPSULE PO SCH (08:06)
[2018-05-17] MEDS: CARVEDILOL 3.125 MG TABLET PO SCH ×2 (08:06→20:18)
[2018-05-17] MEDS: OxyCODONE HCL 10 MG ER TABLET PO SCH ×3 (08:07→20:17)
[2018-05-17] MEDS: ATORVASTATIN CALCIUM 10 MG TABLET PO SCH (08:09)
[2018-05-17] MEDS: ASPIRIN 81 MG CHEWABLE TABLET PO SCH (08:09)
[2018-05-17] MEDS: DOCUSATE SODIUM 250 MG CAPSULE PO SCH ×2 (08:10→20:18)
[2018-05-17] MEDS ORDERED: CHOLECALCIFEROL (VIT D3) 50,000 UNITS CAPSULE PO SCH (09:00)
[2018-05-17] MEDS: POLYETHYLENE GLYCOL 3350 17 GM PACKET PO SCH (13:01)
[2018-05-17 13:18] LABS: URIC ACID 6.3 mg/dL (2.6-7.2)
[2018-05-17 13:28] LABS: C-REACTIVE PROTEIN QUANT 8.01 mg/dL (0.00-0.30)
[2018-05-17 16:10] VITALS: BP 107/58
[2018-05-17] MEDS: DICLOFENAC SODIUM 1% 100 GM GEL [4GM] TP SCH ×2 (16:50→20:18)
[2018-05-17 20:14] VITALS: BP 105/58
[2018-05-17] MEDS: SENNA 187 MG TABLET PO SCH (20:18)
[2018-05-18 05:00] VITALS: BP 107/65
[2018-05-18 07:19] VITALS: BP 101/63
[2018-05-18] MEDS: FERROUS SULFATE 325 MG EC TABLET PO SCH ×2 (07:27→17:14)
[2018-05-18] MEDS: LUBIPROSTONE 24 MCG CAPSULE PO SCH (07:27)
[2018-05-18] MEDS: OxyCODONE HCL 10 MG ER TABLET PO SCH ×3 (08:43→20:17)
[2018-05-18] MEDS: ASPIRIN 81 MG CHEWABLE TABLET PO SCH (10:06)
[2018-05-18] MEDS: POLYETHYLENE GLYCOL 3350 17 GM PACKET PO SCH (10:06)
[2018-05-18] MEDS: ENOXAPARIN SODIUM 30 MG/0.3 ML PF SYRINGE SQ SCH ×2 (10:06→20:17)
[2018-05-18] MEDS: PREGABALIN 75 MG CAPSULE PO SCH ×3 (10:06→20:18)
[2018-05-18] MEDS: CARVEDILOL 3.125 MG TABLET PO SCH ×2 (10:06→20:17)
[2018-05-18] MEDS: DICLOFENAC SODIUM 1% 100 GM GEL [4GM] TP SCH ×3 (10:06→20:19)
[2018-05-18] MEDS: ISOSORB DINIT/HYDRALAZINE HCL 20-37.5 MG TABLET PO SCH ×3 (10:06→20:16)
[2018-05-18] MEDS: COLCHICINE 0.6 MG TABLET PO SCH (10:07)
[2018-05-18] MEDS: PANTOPRAZOLE SODIUM 40 MG DR TABLET PO SCH (10:07)
[2018-05-18] MEDS: TAMSULOSIN HCL 0.4 MG CAPSULE PO SCH (10:07)
[2018-05-18] MEDS: DOCUSATE SODIUM 250 MG CAPSULE PO SCH ×2 (10:07→20:18)
[2018-05-18] MEDS: ATORVASTATIN CALCIUM 10 MG TABLET PO SCH (10:24)
[2018-05-18 12:00] VITALS: BP 100/68
[2018-05-18] MEDS: BUMETANIDE 1 MG TABLET PO SCH (12:14)
[2018-05-18 16:40] VITALS: BP 112/62
[2018-05-18] MEDS: SENNA 187 MG TABLET PO SCH (20:18)
[2018-05-18 22:09] VITALS: BP 109/59
[2018-05-19 04:45] VITALS: BP 111/67
[2018-05-19 07:22] VITALS: BP 115/71
[2018-05-19] MEDS: FERROUS SULFATE 325 MG EC TABLET PO SCH ×2 (07:24→16:13)
[2018-05-19] MEDS ORDERED: *PATIENT'S OWN MED [ENTER DRUG, DOSE, FREQUENCY IN COMMENTS] CLINICAL SCH (08:00)
[2018-05-19] MEDS: ISOSORB DINIT/HYDRALAZINE HCL 20-37.5 MG TABLET PO SCH ×3 (09:38→20:18)
[2018-05-19] MEDS: TAMSULOSIN HCL 0.4 MG CAPSULE PO SCH (09:38)
[2018-05-19] MEDS: ASPIRIN 81 MG CHEWABLE TABLET PO SCH (09:38)
[2018-05-19] MEDS: BUMETANIDE 1 MG TABLET PO SCH (09:38)
[2018-05-19] MEDS: DOCUSATE SODIUM 250 MG CAPSULE PO SCH ×2 (09:38→20:18)
[2018-05-19] MEDS: DICLOFENAC SODIUM 1% 100 GM GEL [4GM] TP SCH ×3 (09:38→20:18)
[2018-05-19] MEDS: PANTOPRAZOLE SODIUM 40 MG DR TABLET PO SCH (09:39)
[2018-05-19] MEDS: PREGABALIN 75 MG CAPSULE PO SCH ×3 (09:39→22:20)
[2018-05-19] MEDS: OxyCODONE HCL 10 MG ER TABLET PO SCH ×3 (09:39→20:18)
[2018-05-19] MEDS: ATORVASTATIN CALCIUM 10 MG TABLET PO SCH (09:39)
[2018-05-19] MEDS: CARVEDILOL 3.125 MG TABLET PO SCH ×2 (09:39→20:18)
[2018-05-19] MEDS: COLCHICINE 0.6 MG TABLET PO SCH (09:40)
[2018-05-19] MEDS: ENOXAPARIN SODIUM 30 MG/0.3 ML PF SYRINGE SQ SCH ×2 (09:40→20:18)
[2018-05-19] MEDS: NALOXEGOL 25 MG PO SCH (09:40)
[2018-05-19] MEDS: POLYETHYLENE GLYCOL 3350 17 GM PACKET PO SCH (09:41)
[2018-05-19] MEDS: OxyCODONE HCL/ACETAMINOPHEN 5-325 MG TABLET PO PRN (13:42)
[2018-05-19] MEDS: DOCUSATE SODIUM 283 MG/5 ML MINI-ENEMA PR PRN (15:34)
[2018-05-19 16:01] VITALS: BP 131/79
[2018-05-19 20:13] VITALS: BP 139/83
[2018-05-19] MEDS: SENNA 187 MG TABLET PO SCH (20:18)
[2018-05-19] MEDS: LACTULOSE 20 GM/30 ML SOLUTION UDCUP PO PRN (21:59)
[2018-05-20 04:00] VITALS: BP 118/68
[2018-05-20 08:00] VITALS: BP 118/62
[2018-05-20] MEDS: BUMETANIDE 1 MG TABLET PO SCH (08:08)
[2018-05-20] MEDS: ISOSORB DINIT/HYDRALAZINE HCL 20-37.5 MG TABLET PO SCH ×3 (08:08→20:23)
[2018-05-20] MEDS: COLCHICINE 0.6 MG TABLET PO SCH (08:09)
[2018-05-20] MEDS: NALOXEGOL 25 MG PO SCH (08:09)
[2018-05-20] MEDS: DOCUSATE SODIUM 250 MG CAPSULE PO SCH ×2 (08:09→20:23)
[2018-05-20] MEDS: ENOXAPARIN SODIUM 30 MG/0.3 ML PF SYRINGE SQ SCH ×2 (08:10→20:22)
[2018-05-20] MEDS: OxyCODONE HCL 10 MG ER TABLET PO SCH ×3 (08:10→20:23)
[2018-05-20] MEDS: POLYETHYLENE GLYCOL 3350 17 GM PACKET PO SCH (08:10)
[2018-05-20] MEDS: PREGABALIN 75 MG CAPSULE PO SCH ×3 (08:10→20:23)
[2018-05-20] MEDS: CARVEDILOL 3.125 MG TABLET PO SCH ×2 (08:11→20:23)
[2018-05-20] MEDS: FERROUS SULFATE 325 MG EC TABLET PO SCH ×2 (08:11→18:15)
[2018-05-20] MEDS: ASPIRIN 81 MG CHEWABLE TABLET PO SCH (08:11)
[2018-05-20] MEDS: ATORVASTATIN CALCIUM 10 MG TABLET PO SCH (08:11)
[2018-05-20] MEDS: TAMSULOSIN HCL 0.4 MG CAPSULE PO SCH (08:11)
[2018-05-20] MEDS: DICLOFENAC SODIUM 1% 100 GM GEL [4GM] TP SCH ×3 (08:12→20:22)
[2018-05-20] MEDS: PANTOPRAZOLE SODIUM 40 MG DR TABLET PO SCH (08:13)
[2018-05-20] MEDS: OxyCODONE HCL/ACETAMINOPHEN 5-325 MG TABLET PO PRN (13:31)
[2018-05-20 15:23] VITALS: BP 105/65
[2018-05-20 20:18] VITALS: BP 107/62
[2018-05-20] MEDS: SENNA 187 MG TABLET PO SCH (20:23)
[2018-05-21 00:35] VITALS: BP 100/61
[2018-05-21 08:00] VITALS: BP 123/76
[2018-05-21] MEDS: POLYETHYLENE GLYCOL 3350 17 GM PACKET PO SCH (08:09)
[2018-05-21] MEDS: BUMETANIDE 1 MG TABLET PO SCH (08:09)
[2018-05-21] MEDS: DOCUSATE SODIUM 250 MG CAPSULE PO SCH ×2 (08:09→20:15)
[2018-05-21] MEDS: OxyCODONE HCL 10 MG ER TABLET PO SCH ×3 (08:09→20:15)
[2018-05-21] MEDS: ISOSORB DINIT/HYDRALAZINE HCL 20-37.5 MG TABLET PO SCH ×3 (08:10→20:15)
[2018-05-21] MEDS: ATORVASTATIN CALCIUM 10 MG TABLET PO SCH (08:10)
[2018-05-21] MEDS: PANTOPRAZOLE SODIUM 40 MG DR TABLET PO SCH (08:10)
[2018-05-21] MEDS: NALOXEGOL 25 MG PO SCH (08:10)
[2018-05-21] MEDS: ASPIRIN 81 MG CHEWABLE TABLET PO SCH (08:10)
[2018-05-21] MEDS: ENOXAPARIN SODIUM 30 MG/0.3 ML PF SYRINGE SQ SCH ×2 (08:10→20:14)
[2018-05-21] MEDS: PREGABALIN 75 MG CAPSULE PO SCH ×3 (08:10→20:15)
[2018-05-21] MEDS: COLCHICINE 0.6 MG TABLET PO SCH (08:10)
[2018-05-21] MEDS: DICLOFENAC SODIUM 1% 100 GM GEL [4GM] TP SCH ×3 (08:11→20:14)
[2018-05-21] MEDS: TAMSULOSIN HCL 0.4 MG CAPSULE PO SCH (08:11)
[2018-05-21] MEDS: CARVEDILOL 3.125 MG TABLET PO SCH ×2 (08:11→20:15)
[2018-05-21] MEDS: FERROUS SULFATE 325 MG EC TABLET PO SCH ×2 (08:11→17:09)
[2018-05-21] MEDS: OxyCODONE HCL/ACETAMINOPHEN 5-325 MG TABLET PO PRN (11:38)
[2018-05-21 15:14] VITALS: BP 105/63
[2018-05-21 20:13] VITALS: BP 109/63
[2018-05-21] MEDS: SENNA 187 MG TABLET PO SCH (20:15)
[2018-05-22 00:50] VITALS: BP 101/65
[2018-05-22] MEDS: OxyCODONE HCL/ACETAMINOPHEN 5-325 MG TABLET PO PRN (06:50)
[2018-05-22 07:50] VITALS: BP 108/66
[2018-05-22] MEDS: CARVEDILOL 3.125 MG TABLET PO SCH ×2 (08:32→20:47)
[2018-05-22] MEDS: POLYETHYLENE GLYCOL 3350 17 GM PACKET PO SCH (08:32)
[2018-05-22] MEDS: ENOXAPARIN SODIUM 30 MG/0.3 ML PF SYRINGE SQ SCH ×2 (08:32→20:47)
[2018-05-22] MEDS: FERROUS SULFATE 325 MG EC TABLET PO SCH ×2 (08:32→16:30)
[2018-05-22] MEDS: NALOXEGOL 25 MG PO SCH (08:32)
[2018-05-22] MEDS: ATORVASTATIN CALCIUM 10 MG TABLET PO SCH (08:32)
[2018-05-22] MEDS: COLCHICINE 0.6 MG TABLET PO SCH (08:32)
[2018-05-22] MEDS: ASPIRIN 81 MG CHEWABLE TABLET PO SCH (08:32)
[2018-05-22] MEDS: ISOSORB DINIT/HYDRALAZINE HCL 20-37.5 MG TABLET PO SCH ×3 (08:33→20:47)
[2018-05-22] MEDS: DICLOFENAC SODIUM 1% 100 GM GEL [4GM] TP SCH ×3 (08:33→20:47)
[2018-05-22] MEDS: BUMETANIDE 1 MG TABLET PO SCH (08:33)
[2018-05-22] MEDS: PREGABALIN 75 MG CAPSULE PO SCH ×3 (08:33→20:46)
[2018-05-22] MEDS: OxyCODONE HCL 10 MG ER TABLET PO SCH ×3 (08:33→20:46)
[2018-05-22] MEDS: DOCUSATE SODIUM 250 MG CAPSULE PO SCH ×2 (08:35→20:46)
[2018-05-22] MEDS: PANTOPRAZOLE SODIUM 40 MG DR TABLET PO SCH (08:35)
[2018-05-22] MEDS: TAMSULOSIN HCL 0.4 MG CAPSULE PO SCH (08:35)
[2018-05-22] MEDS: LACTULOSE 20 GM/30 ML SOLUTION UDCUP PO PRN (08:36)
[2018-05-22 15:20] VITALS: BP 115/61
[2018-05-22 20:42] VITALS: BP 96/58
[2018-05-22] MEDS: SENNA 187 MG TABLET PO SCH (20:46)
[2018-05-23] VITALS (8 sets, daily range): BP systolic 101–159; BP diastolic 59–100
[2018-05-23] MEDS ORDERED: ISOSORB DINIT/HYDRALAZINE HCL 20-37.5 MG TABLET PO SCH (09:00)
[2018-05-23] MEDS: PANTOPRAZOLE SODIUM 40 MG DR TABLET PO SCH (09:52)
[2018-05-23] MEDS: TAMSULOSIN HCL 0.4 MG CAPSULE PO SCH (09:52)
[2018-05-23] MEDS: PREGABALIN 75 MG CAPSULE PO SCH (09:52)
[2018-05-23] MEDS: CARVEDILOL 3.125 MG TABLET PO SCH (09:52)
[2018-05-23] MEDS: DOCUSATE SODIUM 250 MG CAPSULE PO SCH (09:52)
[2018-05-23] MEDS: OxyCODONE HCL 10 MG ER TABLET PO SCH (09:52)
[2018-05-23] MEDS: ENOXAPARIN SODIUM 30 MG/0.3 ML PF SYRINGE SQ SCH (09:52)
[2018-05-23] MEDS: ATORVASTATIN CALCIUM 10 MG TABLET PO SCH (09:53)
[2018-05-23] MEDS: COLCHICINE 0.6 MG TABLET PO SCH (09:53)
[2018-05-23] MEDS: FERROUS SULFATE 325 MG EC TABLET PO SCH (09:53)
[2018-05-23] MEDS: POLYETHYLENE GLYCOL 3350 17 GM PACKET PO SCH (09:53)
[2018-05-23] MEDS: BUMETANIDE 1 MG TABLET PO SCH (09:53)
[2018-05-23] MEDS: NALOXEGOL 25 MG PO SCH (09:53)
[2018-05-23] MEDS: DICLOFENAC SODIUM 1% 100 GM GEL [4GM] TP SCH (09:54)
[2018-05-23] MEDS: ASPIRIN 81 MG CHEWABLE TABLET PO SCH (09:56)
[2018-05-23] MEDS ORDERED: NITROGLYCERIN 2% (1 GM=INCH) PACKET TP SCH (12:00)
[2018-05-23] MEDS ORDERED: CLOPIDOGREL BISULFATE 75 MG TABLET PO SCH (12:00)
[2018-05-23] MEDS ORDERED: OXYGEN THERAPY IH SCH (20:00)
[2018-05-23] MEDS ORDERED: CARVEDILOL 6.25 MG TABLET PO SCH (21:00)
[2018-05-24] MEDS ORDERED: ATORVASTATIN CALCIUM 20 MG TABLET PO SCH (09:00)
[2018-05-28] MEDS ORDERED: CLOP75 PO (09:16)
[2018-05-28] MEDS ORDERED: CARV6 PO (09:16)
[2018-05-28] MEDS ORDERED: ATOR20TA86 PO (09:16)
[2018-05-28] MEDS ORDERED: DSS100 PO (09:17)
[2018-05-28] MEDS ORDERED: ISOS30TA6 PO (09:17)
[2018-05-28] MEDS ORDERED: NTP TD (09:17)
[2018-05-28] MEDS ORDERED: PANT40TA25 PO (09:18)
[2018-05-28] MEDS ORDERED: RANO500T3 PO (09:18)
[2018-05-28] MEDS ORDERED: ONDA4 PO (09:18)
[2018-05-28] MEDS ORDERED: PERCT PO (09:19)
[2018-05-28] MEDS ORDERED: OXYC10IR PO (09:19)
[2018-05-28] MEDS ORDERED: ZOLP5 PO (09:20)
== END 2018-05-23 10:48 | disposition short-term general hospital (02) | DRG 551 ==
LOC: 2WR 17:26
PROVIDERS: ADMIT Physical Medicine & Rehabilitation; ATTEND Physical Medicine & Rehabilitation
DX: M51.17 Intervertebral disc disorders with radiculopathy, lumbosacral region (principal); I21.9 Acute myocardial infarction, unspecified; I13.0 Hypertensive heart and chronic kidney disease with heart failure and stage 1 through stage 4 chronic kidney disease, or unspecified chronic kidney disease; I25.110 Atherosclerotic heart disease of native coronary artery with unstable angina pectoris; N40.0 Benign prostatic hyperplasia without lower urinary tract symptoms; K21.9 Gastro-esophageal reflux disease without esophagitis; I25.10 Atherosclerotic heart disease of native coronary artery without angina pectoris; I11.0 Hypertensive heart disease with heart failure; E78.5 Hyperlipidemia, unspecified; E78.00 Pure hypercholesterolemia, unspecified; D64.9 Anemia, unspecified; I50.9 Heart failure, unspecified; M51.36 Other intervertebral disc degeneration, lumbar region; D72.829 Elevated white blood cell count, unspecified; G47.00 Insomnia, unspecified; I25.5 Ischemic cardiomyopathy; K59.00 Constipation, unspecified; R26.9 Unspecified abnormalities of gait and mobility; N18.9 Chronic kidney disease, unspecified; Z95.810 Presence of automatic (implantable) cardiac defibrillator; I25.2 Old myocardial infarction; Z79.82 Long term (current) use of aspirin; Z79.899 Other long term (current) drug therapy; Z95.5 Presence of coronary angioplasty implant and graft; Z88.0 Allergy status to penicillin
CPT/HCPCS: 74018; 84550; 85651; 86140; 87081; 93005; 93306; 97110; 97116; 97150; 97162; 97166; 97530; 97535; 99366; J1650; J2405; Q0162

== ENCOUNTER 2018-05-28 16:10 | Inpatient (IN) | payer MEDICARE, OTHER ==
[~2018-05-28] VITALS: Ht 175.3 cm; Wt 75.7 kg
[~2018-05-28 16:10] MED LIST changes: +ATOR20TA86 PO; +CARV6 PO; +CLOP75 PO; +DSS100 PO; +ISOS30TA6 PO; +NTP TD; +ONDA4 PO; +OXYC10IR PO; +PANT40TA25 PO; +PERCT PO; +RANO500T3 PO; +ZOLP5 PO
[2018-05-28 16:30] VITALS: BP 112/65
[2018-05-28] MEDS ORDERED: ACETAMINOPHEN 325 MG TABLET PO PRN (17:30)
[2018-05-28] MEDS ORDERED: ZOLPIDEM TARTRATE 5 MG TABLET PO PRN (17:45)
[2018-05-28] MEDS ORDERED: ONDANSETRON HCL 4 MG TABLET PO PRN (17:45)
[2018-05-28] MEDS ORDERED: OxyCODONE HCL/ACETAMINOPHEN 5-325 MG TABLET PO PRN (17:45)
[2018-05-28] MEDS: NITROGLYCERIN 2% (1 GM=INCH) PACKET TP SCH ×2 (18:51→23:25)
[2018-05-28 21:01] VITALS: BP 110/65
[2018-05-28] MEDS: SENNA 187 MG TABLET PO SCH (21:07)
[2018-05-28] MEDS: DOCUSATE SODIUM 100 MG CAPSULE PO SCH (21:07)
[2018-05-28] MEDS: OxyCODONE HCL 10 MG IR TABLET PO PRN (21:07)
[2018-05-28] MEDS: PANTOPRAZOLE SODIUM 40 MG DR TABLET PO SCH (21:07)
[2018-05-28] MEDS: RANOLAZINE 500 MG ER TABLET PO SCH (21:07)
[2018-05-28] MEDS: CARVEDILOL 6.25 MG TABLET PO SCH (21:07)
[2018-05-28] MEDS: ATORVASTATIN CALCIUM 20 MG TABLET PO SCH (21:07)
[2018-05-28] MEDS ORDERED: PNEUMOCOCCAL VACCINE POLYVALENT 0.5 ML VIAL [PPSV23] IM ONE (21:45)
[2018-05-29 00:26] VITALS: BP 111/70
[2018-05-29] MEDS: NITROGLYCERIN 2% (1 GM=INCH) PACKET TP SCH ×3 (06:05→18:23)
[2018-05-29 07:00] VITALS: BP 114/58
[2018-05-29 07:01] LABS: BASOPHILS % (AUTO) 0.5 % (0.0-2.0); HEMATOCRIT 29.5 % (41-53); HEMOGLOBIN 10.1 g/dL (13.5-17.5); LYMPHOCYTES # (AUTO) 1.7 K/uL (1.0-4.8); LYMPHOCYTES % (AUTO) 34.9 % (22.0-44.0); MEAN CORPUSCULAR HEMOGLOBIN 31.7 pg (26.0-34.0); MEAN CORPUSCULAR HGB CONC 34.3 G/dL (31.0-37.0); MEAN CORPUSCULAR VOLUME 93 fL (80-100); MONOCYTES # (AUTO) 0.4 K/uL (0.1-1.0); MONOCYTES % (AUTO) 8.8 % (2.0-9.0); NEUTROPHILS # (AUTO) 2.6 K/uL (1.8-7.7); NEUTROPHILS % (AUTO) 52.8 % (40.0-70.0); PLATELET COUNT (AUTO) 165 K/uL (150-450); RED BLOOD CELL COUNT(AUTO) 3.18 MIL/uL (4.50-5.90)
[2018-05-29 07:29] LABS: ALANINE AMINOTRANSFERASE 25 U/L (12-78); ALBUMIN 2.8 g/dL (3.4-5.0); ALKALINE PHOSPHATASE 79 U/L (46-116); ANION GAP 4 mmol/L (8-16); ASPARTATE AMINOTRANSFERASE 24 U/L (15-37); BILIRUBIN,TOTAL 0.2 mg/dL (0.1-1.0); CALCIUM, TOTAL 8.7 mg/dL (8.8-10.5); CARBON DIOXIDE 32 mmol/L (22-29); CHLORIDE 102 mmol/L (98-107); CREATININE 1.38 mg/dL (0.60-1.30); GLOMERULAR FILTR. RATE CALC > 60 mL/min (>60); GLUCOSE,RANDOM 86 mg/dL (70-110); POTASSIUM 4.5 mmol/L (3.5-5.1); SODIUM SERUM 138 mmol/L (136-145); TOTAL PROTEIN, SERUM 7.4 g/dL (6.4-8.2); UREA NITROGEN, BLOOD 28 mg/dL (7-18)
[2018-05-29] MEDS: OxyCODONE HCL 10 MG IR TABLET PO PRN (08:25)
[2018-05-29] MEDS ORDERED: OxyCODONE HCL 5 MG IR TABLET PO ONE (08:30)
[2018-05-29] MEDS: FERROUS SULFATE 325 MG EC TABLET PO SCH ×2 (08:54→17:56)
[2018-05-29] MEDS: CLOPIDOGREL BISULFATE 75 MG TABLET PO SCH (08:55)
[2018-05-29] MEDS: ASPIRIN 81 MG EC TABLET PO SCH (08:55)
[2018-05-29] MEDS: PANTOPRAZOLE SODIUM 40 MG DR TABLET PO SCH ×2 (08:55→21:38)
[2018-05-29] MEDS: RANOLAZINE 500 MG ER TABLET PO SCH ×2 (08:55→21:37)
[2018-05-29] MEDS: DOCUSATE SODIUM 100 MG CAPSULE PO SCH ×3 (08:55→21:37)
[2018-05-29] MEDS: CARVEDILOL 6.25 MG TABLET PO SCH ×2 (08:56→21:38)
[2018-05-29] MEDS: TAMSULOSIN HCL 0.4 MG CAPSULE PO SCH (08:56)
[2018-05-29] MEDS: ISOSORBIDE MONONITRATE 30 MG ER TABLET PO SCH (08:57)
[2018-05-29] MEDS ORDERED: OxyCODONE HCL/ACETAMINOPHEN 5-325 MG TABLET PO PRN (12:30)
[2018-05-29] MEDS: OxyCODONE HCL/ACETAMINOPHEN 5-325 MG TABLET PO PRN (13:47)
[2018-05-29] MEDS ORDERED: PNEUMOCOCCAL VACCINE POLYVALENT 0.5 ML VIAL [PPSV23] IM ONE (14:15)
[2018-05-29 15:20] VITALS: BP 93/57
[2018-05-29 16:18] VITALS: BP 108/63
[2018-05-29] MEDS: OxyCODONE HCL 10 MG ER TABLET PO SCH ×2 (16:50→21:37)
[2018-05-29 21:31] VITALS: BP 109/67
[2018-05-29] MEDS: SENNA 187 MG TABLET PO SCH (21:37)
[2018-05-29] MEDS: ATORVASTATIN CALCIUM 20 MG TABLET PO SCH (21:38)
[2018-05-29 23:13] VITALS: BP 121/68
[2018-05-30] MEDS: NITROGLYCERIN 2% (1 GM=INCH) PACKET TP SCH ×4 (00:05→17:48)
[2018-05-30 06:00] VITALS: BP 111/65
[2018-05-30 07:10] LABS: BASOPHILS % (AUTO) 0.2 % (0.0-2.0); EOSINOPHILS % (AUTO) 1.9 % (1.0-6.0); HEMATOCRIT 27.1 % (41-53); HEMOGLOBIN 9.2 g/dL (13.5-17.5); LYMPHOCYTES % (AUTO) 34.9 % (22.0-44.0); MEAN CORPUSCULAR HEMOGLOBIN 31.8 pg (26.0-34.0); MEAN CORPUSCULAR VOLUME 94 fL (80-100); MONOCYTES # (AUTO) 0.5 K/uL (0.1-1.0); MONOCYTES % (AUTO) 9.4 % (2.0-9.0); NEUTROPHILS # (AUTO) 3.1 K/uL (1.8-7.7); NEUTROPHILS % (AUTO) 53.6 % (40.0-70.0); PLATELET COUNT (AUTO) 170 K/uL (150-450); RED CELL DISTRIBUTION WIDTH 15.9 % (11.5-14.5)
[2018-05-30 07:17] LABS: ALANINE AMINOTRANSFERASE 23 U/L (12-78); ALBUMIN 2.9 g/dL (3.4-5.0); ALKALINE PHOSPHATASE 80 U/L (46-116); ANION GAP 4 mmol/L (8-16); ASPARTATE AMINOTRANSFERASE 18 U/L (15-37); BILIRUBIN,TOTAL 0.3 mg/dL (0.1-1.0); CALCIUM, TOTAL 8.9 mg/dL (8.8-10.5); CARBON DIOXIDE 30 mmol/L (22-29); CHLORIDE 102 mmol/L (98-107); CREATININE 1.37 mg/dL (0.60-1.30); GLOMERULAR FILTR. RATE CALC > 60 mL/min (>60); GLUCOSE,RANDOM 83 mg/dL (70-110); POTASSIUM 4.6 mmol/L (3.5-5.1); SODIUM SERUM 136 mmol/L (136-145); TOTAL PROTEIN, SERUM 7.4 g/dL (6.4-8.2); UREA NITROGEN, BLOOD 28 mg/dL (7-18)
[2018-05-30 08:00] VITALS: BP 112/67
[2018-05-30] MEDS: OxyCODONE HCL 10 MG ER TABLET PO SCH ×3 (09:01→20:55)
[2018-05-30] MEDS: TAMSULOSIN HCL 0.4 MG CAPSULE PO SCH (09:01)
[2018-05-30] MEDS: CLOPIDOGREL BISULFATE 75 MG TABLET PO SCH (09:01)
[2018-05-30] MEDS: RANOLAZINE 500 MG ER TABLET PO SCH ×2 (09:01→20:55)
[2018-05-30] MEDS: ISOSORBIDE MONONITRATE 30 MG ER TABLET PO SCH (09:02)
[2018-05-30] MEDS: PANTOPRAZOLE SODIUM 40 MG DR TABLET PO SCH ×2 (09:02→20:56)
[2018-05-30] MEDS: DOCUSATE SODIUM 100 MG CAPSULE PO SCH (09:02)
[2018-05-30] MEDS: CHOLECALCIFEROL (VIT D3) 50,000 UNITS CAPSULE PO SCH (09:02)
[2018-05-30] MEDS: FERROUS SULFATE 325 MG EC TABLET PO SCH ×2 (09:02→17:47)
[2018-05-30] MEDS: ASPIRIN 81 MG EC TABLET PO SCH (09:03)
[2018-05-30] MEDS: CARVEDILOL 6.25 MG TABLET PO SCH ×2 (09:04→20:56)
[2018-05-30] MEDS: OxyCODONE HCL/ACETAMINOPHEN 5-325 MG TABLET PO PRN (09:45)
[2018-05-30 13:31] VITALS: BP 93/52
[2018-05-30] MEDS ORDERED: MAGNESIUM HYDROXIDE SUSPENSION 30 ML UDCUP PO PRN (14:00)
[2018-05-30 16:05] VITALS: BP 129/67
[2018-05-30] MEDS: POLYETHYLENE GLYCOL 3350 17 GM PACKET PO SCH (16:50)
[2018-05-30 20:30] VITALS: BP 95/62
[2018-05-30] MEDS: DOCUSATE SODIUM 250 MG CAPSULE PO SCH (20:54)
[2018-05-30] MEDS: ATORVASTATIN CALCIUM 20 MG TABLET PO SCH (20:55)
[2018-05-30] MEDS: SENNA 187 MG TABLET PO SCH (20:56)
[2018-05-30] MEDS ORDERED: DOCUSATE SODIUM 100 MG CAPSULE PO SCH (21:00)
[2018-05-30 21:59] VITALS: BP 109/61
[2018-05-31 01:00] VITALS: BP 106/67
[2018-05-31] MEDS: NITROGLYCERIN 2% (1 GM=INCH) PACKET TP SCH ×2 (01:01→06:00)
[2018-05-31 06:00] VITALS: BP 113/67
[2018-05-31 07:51] VITALS: BP 120/67
[2018-05-31] MEDS: TAMSULOSIN HCL 0.4 MG CAPSULE PO SCH (07:53)
[2018-05-31] MEDS: FERROUS SULFATE 325 MG EC TABLET PO SCH ×2 (07:53→17:03)
[2018-05-31] MEDS: ISOSORBIDE MONONITRATE 30 MG ER TABLET PO SCH (07:53)
[2018-05-31] MEDS: PANTOPRAZOLE SODIUM 40 MG DR TABLET PO SCH ×2 (07:53→20:04)
[2018-05-31] MEDS: CLOPIDOGREL BISULFATE 75 MG TABLET PO SCH (07:53)
[2018-05-31] MEDS: DOCUSATE SODIUM 250 MG CAPSULE PO SCH ×2 (07:53→20:03)
[2018-05-31] MEDS: CARVEDILOL 6.25 MG TABLET PO SCH ×2 (07:53→20:04)
[2018-05-31] MEDS: RANOLAZINE 500 MG ER TABLET PO SCH ×2 (07:53→20:04)
[2018-05-31] MEDS: ASPIRIN 81 MG EC TABLET PO SCH (07:53)
[2018-05-31] MEDS: POLYETHYLENE GLYCOL 3350 17 GM PACKET PO SCH (07:53)
[2018-05-31] MEDS: OxyCODONE HCL 10 MG ER TABLET PO SCH ×3 (07:54→20:04)
[2018-05-31] MEDS: OxyCODONE HCL/ACETAMINOPHEN 5-325 MG TABLET PO PRN (13:19)
[2018-05-31] MEDS: PREGABALIN 75 MG CAPSULE PO SCH ×2 (15:08→20:03)
[2018-05-31 16:28] VITALS: BP 98/59
[2018-05-31] MEDS: SENNA 187 MG TABLET PO SCH (20:03)
[2018-05-31] MEDS: ATORVASTATIN CALCIUM 20 MG TABLET PO SCH (20:04)
[2018-05-31] MEDS: MAGNESIUM HYDROXIDE SUSPENSION 30 ML UDCUP PO PRN (20:09)
[2018-05-31 20:15] VITALS: BP 106/60
[2018-06-01 03:06] VITALS: BP 127/76
[2018-06-01 08:07] VITALS: BP 118/72
[2018-06-01] MEDS: RANOLAZINE 500 MG ER TABLET PO SCH ×2 (08:10→20:20)
[2018-06-01] MEDS: OxyCODONE HCL 10 MG ER TABLET PO SCH ×3 (08:10→20:19)
[2018-06-01] MEDS: CARVEDILOL 6.25 MG TABLET PO SCH ×2 (08:11→20:20)
[2018-06-01] MEDS: PREGABALIN 75 MG CAPSULE PO SCH ×2 (08:11→20:20)
[2018-06-01] MEDS: PANTOPRAZOLE SODIUM 40 MG DR TABLET PO SCH ×2 (08:12→20:20)
[2018-06-01] MEDS: TAMSULOSIN HCL 0.4 MG CAPSULE PO SCH (08:12)
[2018-06-01] MEDS: FERROUS SULFATE 325 MG EC TABLET PO SCH ×2 (08:12→17:09)
[2018-06-01] MEDS: CLOPIDOGREL BISULFATE 75 MG TABLET PO SCH (08:12)
[2018-06-01] MEDS: DOCUSATE SODIUM 250 MG CAPSULE PO SCH ×2 (08:13→20:20)
[2018-06-01] MEDS: ASPIRIN 81 MG EC TABLET PO SCH (08:13)
[2018-06-01] MEDS: MAGNESIUM HYDROXIDE SUSPENSION 30 ML UDCUP PO PRN (08:13)
[2018-06-01] MEDS: ISOSORBIDE MONONITRATE 30 MG ER TABLET PO SCH (08:19)
[2018-06-01] MEDS: POLYETHYLENE GLYCOL 3350 17 GM PACKET PO SCH (08:19)
[2018-06-01] MEDS: OxyCODONE HCL/ACETAMINOPHEN 5-325 MG TABLET PO PRN (11:20)
[2018-06-01] MEDS ORDERED: *NON-FORMULARY MED [ENTER DRUG, DOSE, FREQ IN COMMENTS] CLINICAL SCH (12:45)
[2018-06-01] MEDS: MOVANTIK PO SCH (14:08)
[2018-06-01 15:16] VITALS: BP 120/71
[2018-06-01] MEDS ORDERED: LACTULOSE 20 GM/30 ML SOLUTION UDCUP PO PRN (16:15)
[2018-06-01 20:20] VITALS: BP 117/71
[2018-06-01] MEDS: SENNA 187 MG TABLET PO SCH (20:20)
[2018-06-01] MEDS: ATORVASTATIN CALCIUM 20 MG TABLET PO SCH (20:20)
[2018-06-02 04:17] VITALS: BP 114/68
[2018-06-02] MEDS: RANOLAZINE 500 MG ER TABLET PO SCH ×2 (08:01→20:00)
[2018-06-02] MEDS: PANTOPRAZOLE SODIUM 40 MG DR TABLET PO SCH ×2 (08:01→20:00)
[2018-06-02] MEDS: OxyCODONE HCL 10 MG ER TABLET PO SCH ×3 (08:01→20:00)
[2018-06-02] MEDS: ISOSORBIDE MONONITRATE 30 MG ER TABLET PO SCH (08:01)
[2018-06-02] MEDS: ASPIRIN 81 MG EC TABLET PO SCH (08:01)
[2018-06-02] MEDS: PREGABALIN 75 MG CAPSULE PO SCH ×2 (08:02→20:00)
[2018-06-02] MEDS: DOCUSATE SODIUM 250 MG CAPSULE PO SCH ×2 (08:02→20:00)
[2018-06-02] MEDS: MOVANTIK PO SCH (08:02)
[2018-06-02] MEDS: POLYETHYLENE GLYCOL 3350 17 GM PACKET PO SCH (08:02)
[2018-06-02] MEDS: CARVEDILOL 6.25 MG TABLET PO SCH ×2 (08:03→20:00)
[2018-06-02] MEDS: CLOPIDOGREL BISULFATE 75 MG TABLET PO SCH (08:03)
[2018-06-02] MEDS: TAMSULOSIN HCL 0.4 MG CAPSULE PO SCH (08:03)
[2018-06-02] MEDS: FERROUS SULFATE 325 MG EC TABLET PO SCH ×2 (08:04→17:39)
[2018-06-02 08:10] VITALS: BP 129/83
[2018-06-02] MEDS: OxyCODONE HCL/ACETAMINOPHEN 5-325 MG TABLET PO PRN (13:27)
[2018-06-02 15:48] VITALS: BP 110/70
[2018-06-02 19:47] VITALS: BP 114/70
[2018-06-02] MEDS: ATORVASTATIN CALCIUM 20 MG TABLET PO SCH (20:00)
[2018-06-02] MEDS: SENNA 187 MG TABLET PO SCH (20:01)
[2018-06-03 02:45] VITALS: BP 121/73
[2018-06-03 07:20] VITALS: BP 140/69
[2018-06-03] MEDS: CLOPIDOGREL BISULFATE 75 MG TABLET PO SCH (08:01)
[2018-06-03] MEDS: OxyCODONE HCL 10 MG ER TABLET PO SCH ×3 (08:01→20:49)
[2018-06-03] MEDS: TAMSULOSIN HCL 0.4 MG CAPSULE PO SCH (08:01)
[2018-06-03] MEDS: MOVANTIK PO SCH (08:01)
[2018-06-03] MEDS: POLYETHYLENE GLYCOL 3350 17 GM PACKET PO SCH (08:01)
[2018-06-03] MEDS: RANOLAZINE 500 MG ER TABLET PO SCH ×2 (08:01→20:49)
[2018-06-03] MEDS: FERROUS SULFATE 325 MG EC TABLET PO SCH ×2 (08:01→17:40)
[2018-06-03] MEDS: CARVEDILOL 6.25 MG TABLET PO SCH ×2 (08:02→20:49)
[2018-06-03] MEDS: ISOSORBIDE MONONITRATE 30 MG ER TABLET PO SCH (08:02)
[2018-06-03] MEDS: PANTOPRAZOLE SODIUM 40 MG DR TABLET PO SCH ×2 (08:02→20:49)
[2018-06-03] MEDS: ASPIRIN 81 MG EC TABLET PO SCH (08:02)
[2018-06-03] MEDS: PREGABALIN 75 MG CAPSULE PO SCH ×2 (08:02→20:49)
[2018-06-03] MEDS: DOCUSATE SODIUM 250 MG CAPSULE PO SCH ×2 (08:02→20:48)
[2018-06-03] MEDS: OxyCODONE HCL/ACETAMINOPHEN 5-325 MG TABLET PO PRN (12:04)
[2018-06-03 15:27] VITALS: BP 129/71
[2018-06-03 20:47] VITALS: BP 131/76
[2018-06-03] MEDS: SENNA 187 MG TABLET PO SCH (20:49)
[2018-06-03] MEDS: ATORVASTATIN CALCIUM 20 MG TABLET PO SCH (20:49)
[2018-06-04] VITALS: BP 112/69
[2018-06-04 07:30] VITALS: BP 138/78
[2018-06-04 07:55] LABS: BASOPHILS % (AUTO) 0.4 % (0.0-2.0); EOSINOPHILS % (AUTO) 1.8 % (1.0-6.0); HEMATOCRIT 29.5 % (41-53); HEMOGLOBIN 9.9 g/dL (13.5-17.5); LYMPHOCYTES # (AUTO) 2.1 K/uL (1.0-4.8); LYMPHOCYTES % (AUTO) 43.8 % (22.0-44.0); MEAN CORPUSCULAR HEMOGLOBIN 32.1 pg (26.0-34.0); MEAN CORPUSCULAR HGB CONC 33.5 G/dL (31.0-37.0); MEAN CORPUSCULAR VOLUME 96 fL (80-100); MONOCYTES # (AUTO) 0.6 K/uL (0.1-1.0); MONOCYTES % (AUTO) 11.9 % (2.0-9.0); NEUTROPHILS % (AUTO) 42.1 % (40.0-70.0); PLATELET COUNT (AUTO) 218 K/uL (150-450); RED BLOOD CELL COUNT(AUTO) 3.08 MIL/uL (4.50-5.90); RED CELL DISTRIBUTION WIDTH 16.4 % (11.5-14.5)
[2018-06-04] MEDS: RANOLAZINE 500 MG ER TABLET PO SCH ×2 (07:59→20:05)
[2018-06-04] MEDS: PREGABALIN 75 MG CAPSULE PO SCH ×2 (07:59→20:03)
[2018-06-04] MEDS: ASPIRIN 81 MG EC TABLET PO SCH (08:00)
[2018-06-04] MEDS: DOCUSATE SODIUM 250 MG CAPSULE PO SCH ×2 (08:00→20:02)
[2018-06-04] MEDS: OxyCODONE HCL 10 MG ER TABLET PO SCH ×3 (08:00→20:02)
[2018-06-04] MEDS: TAMSULOSIN HCL 0.4 MG CAPSULE PO SCH (08:00)
[2018-06-04] MEDS: MOVANTIK PO SCH (08:00)
[2018-06-04] MEDS: CLOPIDOGREL BISULFATE 75 MG TABLET PO SCH (08:01)
[2018-06-04] MEDS: FERROUS SULFATE 325 MG EC TABLET PO SCH ×2 (08:01→17:25)
[2018-06-04] MEDS: PANTOPRAZOLE SODIUM 40 MG DR TABLET PO SCH ×2 (08:01→20:04)
[2018-06-04] MEDS: CARVEDILOL 6.25 MG TABLET PO SCH ×2 (08:01→20:04)
[2018-06-04] MEDS: ISOSORBIDE MONONITRATE 30 MG ER TABLET PO SCH (08:01)
[2018-06-04] MEDS: POLYETHYLENE GLYCOL 3350 17 GM PACKET PO SCH (08:02)
[2018-06-04 08:09] LABS: ANION GAP 4 mmol/L (8-16); CALCIUM, TOTAL 8.9 mg/dL (8.8-10.5); CARBON DIOXIDE 34 mmol/L (22-29); CHLORIDE 103 mmol/L (98-107); CREATININE 1.18 mg/dL (0.60-1.30); GLOMERULAR FILTR. RATE CALC > 60 mL/min (>60); GLUCOSE,RANDOM 86 mg/dL (70-110); POTASSIUM 4.9 mmol/L (3.5-5.1); SODIUM SERUM 141 mmol/L (136-145); UREA NITROGEN, BLOOD 20 mg/dL (7-18)
[2018-06-04] MEDS: OxyCODONE HCL/ACETAMINOPHEN 5-325 MG TABLET PO PRN (12:25)
[2018-06-04 16:09] VITALS: BP 100/66
[2018-06-04 19:57] VITALS: BP 112/62
[2018-06-04] MEDS: ATORVASTATIN CALCIUM 20 MG TABLET PO SCH (20:03)
[2018-06-04] MEDS: SENNA 187 MG TABLET PO SCH (20:03)
[2018-06-05 03:00] VITALS: BP 130/63
[2018-06-05 07:21] VITALS: BP 132/98
[2018-06-05] MEDS: FERROUS SULFATE 325 MG EC TABLET PO SCH ×2 (08:00→17:39)
[2018-06-05] MEDS: RANOLAZINE 500 MG ER TABLET PO SCH ×2 (08:00→21:05)
[2018-06-05] MEDS: PANTOPRAZOLE SODIUM 40 MG DR TABLET PO SCH ×2 (08:00→21:05)
[2018-06-05] MEDS: ISOSORBIDE MONONITRATE 30 MG ER TABLET PO SCH (08:01)
[2018-06-05] MEDS: CLOPIDOGREL BISULFATE 75 MG TABLET PO SCH (08:01)
[2018-06-05] MEDS: POLYETHYLENE GLYCOL 3350 17 GM PACKET PO SCH (08:01)
[2018-06-05] MEDS: OxyCODONE HCL 10 MG ER TABLET PO SCH ×3 (08:01→21:04)
[2018-06-05] MEDS: CARVEDILOL 6.25 MG TABLET PO SCH ×2 (08:01→21:05)
[2018-06-05] MEDS: ASPIRIN 81 MG EC TABLET PO SCH (08:01)
[2018-06-05] MEDS: MOVANTIK PO SCH (08:02)
[2018-06-05] MEDS: DOCUSATE SODIUM 250 MG CAPSULE PO SCH ×2 (08:02→21:05)
[2018-06-05] MEDS: PREGABALIN 75 MG CAPSULE PO SCH ×2 (08:02→21:05)
[2018-06-05] MEDS: TAMSULOSIN HCL 0.4 MG CAPSULE PO SCH (08:03)
[2018-06-05 15:47] VITALS: BP 112/69
[2018-06-05 20:00] VITALS: BP 118/75
[2018-06-05] MEDS: ATORVASTATIN CALCIUM 20 MG TABLET PO SCH (21:05)
[2018-06-05] MEDS: SENNA 187 MG TABLET PO SCH (21:05)
[2018-06-06 00:12] VITALS: BP 135/81
[2018-06-06 08:00] VITALS: BP 142/82
[2018-06-06] MEDS: ISOSORBIDE MONONITRATE 30 MG ER TABLET PO SCH (08:20)
[2018-06-06] MEDS: CHOLECALCIFEROL (VIT D3) 50,000 UNITS CAPSULE PO SCH (08:21)
[2018-06-06] MEDS: ASPIRIN 81 MG EC TABLET PO SCH (08:21)
[2018-06-06] MEDS: RANOLAZINE 500 MG ER TABLET PO SCH ×2 (08:21→20:11)
[2018-06-06] MEDS: OxyCODONE HCL 10 MG ER TABLET PO SCH ×3 (08:21→20:12)
[2018-06-06] MEDS: PREGABALIN 75 MG CAPSULE PO SCH ×2 (08:21→20:11)
[2018-06-06] MEDS: PANTOPRAZOLE SODIUM 40 MG DR TABLET PO SCH ×2 (08:21→20:11)
[2018-06-06] MEDS: MOVANTIK PO SCH (08:21)
[2018-06-06] MEDS: CARVEDILOL 6.25 MG TABLET PO SCH ×2 (08:21→20:11)
[2018-06-06] MEDS: TAMSULOSIN HCL 0.4 MG CAPSULE PO SCH (08:22)
[2018-06-06] MEDS: POLYETHYLENE GLYCOL 3350 17 GM PACKET PO SCH (08:22)
[2018-06-06] MEDS: CLOPIDOGREL BISULFATE 75 MG TABLET PO SCH (08:22)
[2018-06-06] MEDS: DOCUSATE SODIUM 250 MG CAPSULE PO SCH ×2 (08:22→20:11)
[2018-06-06] MEDS: FERROUS SULFATE 325 MG EC TABLET PO SCH ×2 (08:22→17:51)
[2018-06-06 15:40] VITALS: BP 104/49
[2018-06-06 20:05] VITALS: BP 106/65
[2018-06-06] MEDS: SENNA 187 MG TABLET PO SCH (20:11)
[2018-06-06] MEDS: ATORVASTATIN CALCIUM 20 MG TABLET PO SCH (20:11)
[2018-06-07 00:36] VITALS: BP 105/59
[2018-06-07] MEDS: OxyCODONE HCL/ACETAMINOPHEN 5-325 MG TABLET PO PRN (00:36)
[2018-06-07] MEDS ORDERED: POLY17PO PO (04:55)
[2018-06-07] MEDS ORDERED: PREG75 PO (04:55)
[2018-06-07] MEDS ORDERED: OXYC10 PO (04:55)
[2018-06-07] MEDS ORDERED: OXYC-38 PO (04:58)
[2018-06-07] MEDS ORDERED: DOCU250C91 PO (04:58)
[2018-06-07] MEDS ORDERED: NALO25TA PO (04:59)
[2018-06-07 07:30] VITALS: BP 126/77
[2018-06-07] MEDS: TAMSULOSIN HCL 0.4 MG CAPSULE PO SCH (08:52)
[2018-06-07] MEDS: POLYETHYLENE GLYCOL 3350 17 GM PACKET PO SCH (08:52)
[2018-06-07] MEDS: CLOPIDOGREL BISULFATE 75 MG TABLET PO SCH (08:52)
[2018-06-07] MEDS: PREGABALIN 75 MG CAPSULE PO SCH (08:52)
[2018-06-07] MEDS: MOVANTIK PO SCH (08:52)
[2018-06-07] MEDS: OxyCODONE HCL 10 MG ER TABLET PO SCH (08:53)
[2018-06-07] MEDS: ISOSORBIDE MONONITRATE 30 MG ER TABLET PO SCH (08:53)
[2018-06-07] MEDS: RANOLAZINE 500 MG ER TABLET PO SCH (08:53)
[2018-06-07] MEDS: DOCUSATE SODIUM 250 MG CAPSULE PO SCH (08:53)
[2018-06-07] MEDS: CARVEDILOL 6.25 MG TABLET PO SCH (08:54)
[2018-06-07] MEDS: ASPIRIN 81 MG EC TABLET PO SCH (08:54)
[2018-06-07] MEDS: PANTOPRAZOLE SODIUM 40 MG DR TABLET PO SCH (08:54)
[2018-06-07] MEDS: FERROUS SULFATE 325 MG EC TABLET PO SCH (08:55)
== END 2018-06-07 11:30 | disposition home health service (06) | DRG 552 ==
LOC: 2WR 16:10
PROVIDERS: ADMIT Physical Medicine & Rehabilitation; ATTEND Physical Medicine & Rehabilitation
PROC: 3E0234Z Introduction of Serum, Toxoid and Vaccine into Muscle, Percutaneous Approach (ICD-10-PCS; principal; 2018-05-29)
DX: M47.27 Other spondylosis with radiculopathy, lumbosacral region (principal); I25.110 Atherosclerotic heart disease of native coronary artery with unstable angina pectoris; I13.0 Hypertensive heart and chronic kidney disease with heart failure and stage 1 through stage 4 chronic kidney disease, or unspecified chronic kidney disease; E46 Unspecified protein-calorie malnutrition; D64.9 Anemia, unspecified; N18.9 Chronic kidney disease, unspecified; E78.5 Hyperlipidemia, unspecified; E78.00 Pure hypercholesterolemia, unspecified; I50.9 Heart failure, unspecified; K59.03 Drug induced constipation; T40.2X5A Adverse effect of other opioids, initial encounter; K21.9 Gastro-esophageal reflux disease without esophagitis; I25.5 Ischemic cardiomyopathy; G47.00 Insomnia, unspecified; I25.10 Atherosclerotic heart disease of native coronary artery without angina pectoris; M81.0 Age-related osteoporosis without current pathological fracture; N40.0 Benign prostatic hyperplasia without lower urinary tract symptoms; Z79.02 Long term (current) use of antithrombotics/antiplatelets; Z79.82 Long term (current) use of aspirin; Z79.899 Other long term (current) drug therapy; Z95.5 Presence of coronary angioplasty implant and graft; Z95.810 Presence of automatic (implantable) cardiac defibrillator; Z68.24 Body mass index [BMI] 24.0-24.9, adult; Z88.6 Allergy status to analgesic agent; Z88.8 Allergy status to other drugs, medicaments and biological substances; Y92.89 Other specified places as the place of occurrence of the external cause; Z23 Encounter for immunization
CPT/HCPCS: 72100; 83735; 87081; 90732; 93005; 97110; 97112; 97116; 97140; 97162; 97166; 97530; 97535

== ENCOUNTER → 2018-07-04 | Outpatient (CLI) | payer MEDICARE, OTHER ==
[~2018-07-04] VITALS: Ht 175.3 cm; Wt 76.5 kg
[~2018-07-04] MED LIST changes: -ATOR10TA84 PO; -BUME1TAB17 PO; -CARV3 PO; +DOCU250C91 PO; -DSS100 PO; -ISOS1TAB2 PO; -NTP TD; -ONDA4 PO; +OXYC10 PO; -OXYC10IR PO; -OXYC20 PO; +POLY17PO PO; +PREG75 PO; -ZOLP5 PO
[2018-07-04 09:54] VITALS: BP 119/70
== END | disposition home or self-care (01) ==
LOC: SRCNTR 09:17
PROVIDERS: ATTEND Hospitalist
DX: I13.0 Hypertensive heart and chronic kidney disease with heart failure and stage 1 through stage 4 chronic kidney disease, or unspecified chronic kidney disease (principal); N18.9 Chronic kidney disease, unspecified; I50.9 Heart failure, unspecified; I25.10 Atherosclerotic heart disease of native coronary artery without angina pectoris; E78.5 Hyperlipidemia, unspecified; K21.9 Gastro-esophageal reflux disease without esophagitis; M19.90 Unspecified osteoarthritis, unspecified site; B19.20 Unspecified viral hepatitis C without hepatic coma; I25.2 Old myocardial infarction; G47.33 Obstructive sleep apnea (adult) (pediatric); M54.9 Dorsalgia, unspecified; G89.29 Other chronic pain
CPT/HCPCS: G0463

== ENCOUNTER → 2018-07-29 | Outpatient (CLI) | payer MEDICARE, OTHER ==
[2018-07-29 10:22] LABS: BASOPHILS % (AUTO) 0.6 % (0.0-2.0); EOSINOPHILS % (AUTO) 1.7 % (1.0-6.0); HEMATOCRIT 33.5 % (41-53); HEMOGLOBIN 11.3 g/dL (13.5-17.5); LYMPHOCYTES # (AUTO) 1.8 K/uL (1.0-4.8); LYMPHOCYTES % (AUTO) 36.8 % (22.0-44.0); MEAN CORPUSCULAR HEMOGLOBIN 31.8 pg (26.0-34.0); MEAN CORPUSCULAR HGB CONC 33.7 G/dL (31.0-37.0); MEAN CORPUSCULAR VOLUME 94 fL (80-100); MONOCYTES # (AUTO) 0.5 K/uL (0.1-1.0); MONOCYTES % (AUTO) 9.9 % (2.0-9.0); NEUTROPHILS # (AUTO) 2.5 K/uL (1.8-7.7); PLATELET COUNT (AUTO) 190 K/uL (150-450); RED BLOOD CELL COUNT(AUTO) 3.56 MIL/uL (4.50-5.90); RED CELL DISTRIBUTION WIDTH 16.8 % (11.5-14.5)
[2018-07-29 10:46] LABS: ALANINE AMINOTRANSFERASE 20 U/L (12-78); ALBUMIN 3.7 g/dL (3.4-5.0); ALKALINE PHOSPHATASE 74 U/L (46-116); ANION GAP 8 mmol/L (8-16); ASPARTATE AMINOTRANSFERASE 28 U/L (15-37); BILIRUBIN,TOTAL 0.2 mg/dL (0.1-1.0); CALCIUM, TOTAL 9.5 mg/dL (8.8-10.5); CARBON DIOXIDE 31 mmol/L (22-29); CHLORIDE 101 mmol/L (98-107); CHOL/HDL RATIO 1.7 (4.2-7.3); CHOLESTEROL 160 mg/dL (131-200); CREATININE 1.22 mg/dL (0.60-1.30); GLOMERULAR FILTR. RATE CALC > 60 mL/min (>60); GLUCOSE,RANDOM 90 mg/dL (70-110); HDL CHOLESTEROL 96 mg/dL (40-60); LDL CHOL (CALC.) 56 mg/dL (0-130); POTASSIUM 4.8 mmol/L (3.5-5.1); SODIUM SERUM 140 mmol/L (136-145); THYROID STIMULATING HORMONE 1.08 uIU/mL (0.36-3.74); TOTAL PROTEIN, SERUM 8.6 g/dL (6.4-8.2); TRIGLYCERIDES 42 mg/dL (15-150); UREA NITROGEN, BLOOD 25 mg/dL (7-18)
[2018-07-29 12:41] LABS: HEMOGLOBIN A1C 5.5 % (4.5-6.2)
== END | disposition home or self-care (01) ==
LOC: LABPV 08:27
PROVIDERS: ATTEND Internal Medicine Cardiovascular Disease
DX: E55.9 Vitamin D deficiency, unspecified (principal); I11.0 Hypertensive heart disease with heart failure; I50.9 Heart failure, unspecified; E11.9 Type 2 diabetes mellitus without complications; D56.5 Hemoglobin E-beta thalassemia
CPT/HCPCS: 82306; 83036; 83735; 84439; 84443

== ENCOUNTER → 2018-08-19 | Outpatient (CLI) | payer MEDICARE, OTHER ==
[~2018-08-19] VITALS: Ht 175.3 cm; Wt 78.0 kg
[~2018-08-19] MED LIST changes: -CLOP75 PO; +CLOP75TA17 PO
[2018-08-19 09:41] VITALS: BP 122/66
== END | disposition home or self-care (01) ==
LOC: SRCNTR 09:11
PROVIDERS: ATTEND Neurological Surgery
DX: M54.5 Low back pain (principal)
CPT/HCPCS: G0463

== ENCOUNTER 2018-08-30 07:33 | Emergency (ER) | payer MEDICARE, OTHER ==
[~2018-08-30] VITALS: Ht 175.3 cm; Wt 77.3 kg
[~2018-08-30 07:33] MED LIST changes: -CLOP75TA17 PO; +CLOP75TA3 PO
[2018-08-30] MEDS ORDERED: KETOROLAC TROMETHAMINE 60 MG/2 ML VIAL IM ONE (09:00)
[2018-08-30] MEDS ORDERED: OxyCODONE HCL/ACETAMINOPHEN 5-325 MG TABLET PO ONE (09:00)
[2018-08-30 11:01] VITALS: BP 125/75
== END 2018-08-30 11:30 | disposition home or self-care (01) ==
LOC: EMS 07:34
DX: S80.02XA Contusion of left knee, initial encounter (principal); I11.0 Hypertensive heart disease with heart failure; I50.9 Heart failure, unspecified; E78.00 Pure hypercholesterolemia, unspecified; K21.9 Gastro-esophageal reflux disease without esophagitis; I25.10 Atherosclerotic heart disease of native coronary artery without angina pectoris; F17.210 Nicotine dependence, cigarettes, uncomplicated; Z88.5 Allergy status to narcotic agent; Z88.8 Allergy status to other drugs, medicaments and biological substances; Z79.82 Long term (current) use of aspirin; Z79.899 Other long term (current) drug therapy; W01.0XXA Fall on same level from slipping, tripping and stumbling without subsequent striking against object, initial encounter; Y93.89 Activity, other specified; Y92.89 Other specified places as the place of occurrence of the external cause; Y99.8 Other external cause status
CPT/HCPCS: 73562; 96372; 99283; J1885; 29530

== ENCOUNTER 2018-11-27 16:28 | Emergency (ER) | payer MEDICARE, OTHER ==
[~2018-11-27] VITALS: Ht 175.3 cm; Wt 81.8 kg
[~2018-11-27 16:28] MED LIST changes: +BIDIL PO; +BUME2TAB18 PO; -DOCU250C91 PO; -ISOS30TA6 PO; +OXYC80 PO; -PERCT PO; -POLY17PO PO; -PREG75 PO; -VITAD50000 PO
[2018-11-27] MEDS ORDERED: LIDOCAINE 5% TRANSDERMAL PATCH TD ONE (17:15)
[2018-11-27] MEDS: OxyCODONE HCL 5 MG IR TABLET PO ONE ×2 (18:16→18:29)
[2018-11-27 19:21] VITALS: BP 131/75
[2018-11-27 19:33] LABS: APPEARANCE,URINE CLEAR (CLEAR); BILIRUBIN,URINE NEGATIVE (NEGATIVE); GLUCOSE, URINE (UA) NEGATIVE (NEGATIVE); KETONES,URINE NEGATIVE (NEGATIVE); LEUKOCYTE ESTERASE ,URINE NEGATIVE (NEGATIVE); NITRATE,URINE NEGATIVE (NEGATIVE); OCCULT BLOOD,URINE NEGATIVE (NEGATIVE); PROTEIN,URINE NEGATIVE (NEGATIVE); UROBILINOGEN,URINE 0.2 mg/dL (<=1.0)
[2018-11-27 19:44] LABS: BACTERIA,URINE None Seen /HPF (None Seen); RBC,URINE 0-2 /HPF (0-2); SQUAMOUS EPITHELIAL CELL,UR Moderate /LPF (None Seen); WBC,URINE 0-2 /HPF (0-5)
== END 2018-11-27 19:30 | disposition home or self-care (01) ==
LOC: EMS 16:30
DX: M54.5 Low back pain (principal); I25.10 Atherosclerotic heart disease of native coronary artery without angina pectoris; I11.0 Hypertensive heart disease with heart failure; I50.9 Heart failure, unspecified; I25.2 Old myocardial infarction; K21.9 Gastro-esophageal reflux disease without esophagitis; E78.00 Pure hypercholesterolemia, unspecified; F17.210 Nicotine dependence, cigarettes, uncomplicated; Z95.0 Presence of cardiac pacemaker; Z88.5 Allergy status to narcotic agent; Z88.8 Allergy status to other drugs, medicaments and biological substances; Z79.82 Long term (current) use of aspirin
CPT/HCPCS: 72100

== ENCOUNTER → 2018-12-26 | Outpatient (CLI) | payer MEDICARE, OTHER ==
[~2018-12-26] MED LIST changes: -BUME2TAB18 PO; +BUME2TAB5 PO
[2018-12-26 10:49] LABS: BASOPHILS % (AUTO) 0.7 % (0.0-2.0); EOSINOPHILS % (AUTO) 1.7 % (1.0-6.0); HEMATOCRIT 38.6 % (41-53); HEMOGLOBIN 12.8 g/dL (13.5-17.5); LYMPHOCYTES # (AUTO) 1.7 K/uL (1.0-4.8); MEAN CORPUSCULAR HEMOGLOBIN 31.5 pg (26.0-34.0); MEAN CORPUSCULAR HGB CONC 33.1 G/dL (31.0-37.0); MEAN CORPUSCULAR VOLUME 95 fL (80-100); MONOCYTES # (AUTO) 0.5 K/uL (0.1-1.0); MONOCYTES % (AUTO) 8.9 % (2.0-9.0); NEUTROPHILS # (AUTO) 3.6 K/uL (1.8-7.7); NEUTROPHILS % (AUTO) 60.7 % (40.0-70.0); PLATELET COUNT (AUTO) 215 K/uL (150-450); RED BLOOD CELL COUNT(AUTO) 4.06 MIL/uL (4.50-5.90); RED CELL DISTRIBUTION WIDTH 16.4 % (11.5-14.5)
[2018-12-26 10:55] LABS: HEMOGLOBIN A1C 5.8 % (4.5-6.2)
[2018-12-26 11:19] LABS: ALBUMIN 3.9 g/dL (3.4-5.0); BILIRUBIN,TOTAL 0.3 mg/dL (0.1-1.0); CALCIUM, TOTAL 10.3 mg/dL (8.8-10.5); CHOL/HDL RATIO 1.8 (4.2-7.3); CREATININE 1.44 mg/dL (0.60-1.30); FREE T4 (FREE THYROXINE) 1.21 ng/dL (0.76-1.46); POTASSIUM 3.8 mmol/L (3.5-5.1); THYROID STIMULATING HORMONE 0.52 uIU/mL (0.36-3.74); TOTAL PROTEIN, SERUM 9.4 g/dL (6.4-8.2)
== END | disposition home or self-care (01) ==
LOC: LABPV 08:25
PROVIDERS: ATTEND Internal Medicine Cardiovascular Disease
DX: I11.0 Hypertensive heart disease with heart failure (principal); I50.9 Heart failure, unspecified; E11.8 Type 2 diabetes mellitus with unspecified complications; E55.9 Vitamin D deficiency, unspecified; D56.5 Hemoglobin E-beta thalassemia
CPT/HCPCS: 82306; 83036; 83735; 84439; 84443

== ENCOUNTER 2019-03-13 12:14 | Emergency (ER) | payer MEDICARE, OTHER ==
[~2019-03-13] VITALS: Ht 175.3 cm; Wt 81.8 kg
[2019-03-13 14:28] LABS: BASOPHILS % (AUTO) 0.8 % (0.0-2.0); HEMATOCRIT 35.2 % (41-53); HEMOGLOBIN 11.4 g/dL (13.5-17.5); LYMPHOCYTES # (AUTO) 1.6 K/uL (1.0-4.8); MEAN CORPUSCULAR HEMOGLOBIN 31.4 pg (26.0-34.0); MEAN CORPUSCULAR HGB CONC 32.5 G/dL (31.0-37.0); MEAN CORPUSCULAR VOLUME 97 fL (80-100); MONOCYTES # (AUTO) 0.7 K/uL (0.1-1.0); MONOCYTES % (AUTO) 11.2 % (2.0-9.0); PLATELET COUNT (AUTO) 173 K/uL (150-450); RED BLOOD CELL COUNT(AUTO) 3.64 MIL/uL (4.50-5.90); RED CELL DISTRIBUTION WIDTH 16.2 % (11.5-14.5)
[2019-03-13] MEDS ORDERED: FUROSEMIDE 40 MG/4 ML VIAL IVP ONE (14:45)
[2019-03-13] MEDS ORDERED: ALBUTEROL SULFATE 2.5 MG/0.5 ML NEB SOLUTION NEB ONE (14:45)
[2019-03-13] MEDS ORDERED: IPRATROPIUM BROMIDE 0.5 MG/2.5 ML NEB SOLUTION NEB ONE (14:45)
[2019-03-13] MEDS ORDERED: MethylPREDNISolone SOD SUCC 125 MG/2 ML VIAL IVP ONE (14:45)
[2019-03-13 14:58] LABS: ANION GAP 11 mmol/L (8-16); CALCIUM, TOTAL 9.3 mg/dL (8.8-10.5); CARBON DIOXIDE 30 mmol/L (22-29); CHLORIDE 98 mmol/L (98-107); CREATININE 1.35 mg/dL (0.60-1.30); GLOMERULAR FILTR. RATE CALC > 60 mL/min (>60); GLUCOSE,RANDOM 90 mg/dL (70-110); POTASSIUM 3.9 mmol/L (3.5-5.1); SODIUM SERUM 139 mmol/L (136-145); UREA NITROGEN, BLOOD 19 mg/dL (7-18)
[2019-03-13 15:05] LABS: ALANINE AMINOTRANSFERASE 18 U/L (12-78); ALKALINE PHOSPHATASE 77 U/L (46-116); ASPARTATE AMINOTRANSFERASE 21 U/L (15-37); BILIRUBIN,TOTAL 0.3 mg/dL (0.1-1.0); LIPASE 97 U/L (73-393); TOTAL PROTEIN, SERUM 8.5 g/dL (6.4-8.2)
[2019-03-13 16:04] VITALS: BP 159/100
[2019-03-17] MEDS ORDERED: UNKNOWN ABX PO (15:41)
[2019-03-17] MEDS ORDERED: ALBU8HFA IH (15:41)
[2019-03-17] MEDS ORDERED: BUME1TAB34 PO (16:29)
[2019-03-17] MEDS ORDERED: ERGO500014 PO (16:29)
[2019-03-17] MEDS ORDERED: OXYC20TA41 PO (16:29)
[2019-03-17] MEDS ORDERED: AZIT250T9 PO (16:29)
[2019-03-17] MEDS ORDERED: ISOS1TAB2 PO (16:29)
[2019-03-17] MEDS ORDERED: OXYC40 PO (16:29)
== END 2019-03-13 16:13 | disposition home or self-care (01) ==
LOC: EMS 12:17
DX: J44.1 Chronic obstructive pulmonary disease with (acute) exacerbation (principal); J18.9 Pneumonia, unspecified organism; I25.10 Atherosclerotic heart disease of native coronary artery without angina pectoris; E78.00 Pure hypercholesterolemia, unspecified; I11.0 Hypertensive heart disease with heart failure; I50.9 Heart failure, unspecified; I25.2 Old myocardial infarction; K21.9 Gastro-esophageal reflux disease without esophagitis; F17.210 Nicotine dependence, cigarettes, uncomplicated; Z79.899 Other long term (current) drug therapy; Z88.5 Allergy status to narcotic agent; Z88.8 Allergy status to other drugs, medicaments and biological substances; Z98.890 Other specified postprocedural states; Z95.0 Presence of cardiac pacemaker
CPT/HCPCS: 36415; 71045; 80053; 83690; 84484; 85025; 93005; 94640; 96374; 96375; 99285; J1940; J2930

== ENCOUNTER → 2019-03-20 | Outpatient (CLI) | payer MEDICARE, OTHER ==
[~2019-03-20] MED LIST changes: +ALBU8HFA IH; -BIDIL PO; +BUME1TAB34 PO; -BUME2TAB5 PO; +ERGO500014 PO; -FERR-89 PO; +ISOS1TAB2 PO; -OXYC10 PO; -OXYC80 PO; -PANT40TA25 PO; +PRED10 PO; +PRED20 PO; +PRED5 PO; -TAMS0.4C32 PO
[2019-03-20 09:17] LABS: CALCIUM, TOTAL 9.1 mg/dL (8.8-10.5); CREATININE 2.52 mg/dL (0.60-1.30); POTASSIUM 4.4 mmol/L (3.5-5.1)
== END | disposition home or self-care (01) ==
LOC: LABPV 08:11
PROVIDERS: ATTEND Internal Medicine Cardiovascular Disease
DX: E55.9 Vitamin D deficiency, unspecified (principal); E11.8 Type 2 diabetes mellitus with unspecified complications; I11.0 Hypertensive heart disease with heart failure; I50.9 Heart failure, unspecified; D56.5 Hemoglobin E-beta thalassemia

== ENCOUNTER → 2019-04-25 | Outpatient (CLI) | payer MEDICARE, OTHER ==
[2019-04-25 14:01] LABS: BASOPHILS % (AUTO) 0.6 % (0.0-2.0); EOSINOPHILS % (AUTO) 0.8 % (1.0-6.0); HEMATOCRIT 34.4 % (41-53); HEMOGLOBIN 11.4 g/dL (13.5-17.5); LYMPHOCYTES # (AUTO) 2.4 K/uL (1.0-4.8); MEAN CORPUSCULAR HEMOGLOBIN 31.7 pg (26.0-34.0); MEAN CORPUSCULAR HGB CONC 33.2 G/dL (31.0-37.0); MEAN CORPUSCULAR VOLUME 95 fL (80-100); MONOCYTES # (AUTO) 0.7 K/uL (0.1-1.0); MONOCYTES % (AUTO) 11.8 % (2.0-9.0); NEUTROPHILS % (AUTO) 48.8 % (40.0-70.0); PLATELET COUNT (AUTO) 162 K/uL (150-450); RED CELL DISTRIBUTION WIDTH 15.7 % (11.5-14.5)
[2019-04-25 14:15] LABS: HEMOGLOBIN A1C 5.8 % (4.5-6.2)
[2019-04-25 14:29] LABS: ALBUMIN 3.5 g/dL (3.4-5.0); BILIRUBIN,TOTAL 0.3 mg/dL (0.1-1.0); CALCIUM, TOTAL 8.6 mg/dL (8.8-10.5); CHOL/HDL RATIO 2.2 (4.2-7.3); CREATININE 1.81 mg/dL (0.60-1.30); FREE T4 (FREE THYROXINE) 1.2 ng/dL (0.76-1.46); MAGNESIUM 1.8 mg/dL (1.80-2.40); POTASSIUM 3.9 mmol/L (3.5-5.1); THYROID STIMULATING HORMONE 1.77 uIU/mL (0.36-3.74); TOTAL PROTEIN, SERUM 7.9 g/dL (6.4-8.2)
== END | disposition home or self-care (01) ==
LOC: LABPV 08:32
PROVIDERS: ATTEND Internal Medicine Cardiovascular Disease
DX: E55.9 Vitamin D deficiency, unspecified (principal); I11.0 Hypertensive heart disease with heart failure; I50.9 Heart failure, unspecified; E11.8 Type 2 diabetes mellitus with unspecified complications; D56.5 Hemoglobin E-beta thalassemia
CPT/HCPCS: 82306; 83036; 83735; 84439; 84443

== ENCOUNTER → 2019-05-16 | Outpatient (CLI) | payer MEDICARE, OTHER ==
[~2019-05-16] MED LIST changes: +AMIO100T4 PO; +AMIO200T5 PO; +BENZ-51 PO; +GUAIF600 PO; +MAGN400T40 PO; +SPIR50 PO
[2019-05-16 13:17] LABS: CALCIUM, TOTAL 8.9 mg/dL (8.8-10.5); CREATININE 1.84 mg/dL (0.60-1.30); POTASSIUM 3.4 mmol/L (3.5-5.1)
== END | disposition home or self-care (01) ==
LOC: LABPV 09:38
PROVIDERS: ATTEND Internal Medicine Cardiovascular Disease
DX: E55.9 Vitamin D deficiency, unspecified (principal); I11.0 Hypertensive heart disease with heart failure; I50.9 Heart failure, unspecified; E11.8 Type 2 diabetes mellitus with unspecified complications; D56.5 Hemoglobin E-beta thalassemia

== ENCOUNTER 2019-06-12 05:17 | Inpatient (IN) | payer MEDICARE, OTHER ==
[~2019-06-12] VITALS: Ht 175.3 cm; Wt 84.3 kg
[~2019-06-12 05:17] MED LIST changes: -AMIO100T4 PO; -AMIO200T5 PO; -BENZ-51 PO; -GUAIF600 PO; -MAGN400T40 PO; -SPIR50 PO
[2019-06-12] MEDS ORDERED: NITROGLYCERIN 0.4 MG SUBLINGUAL TABLET #25 SL ONE (06:00)
[2019-06-12 06:02] LABS: BASOPHILS % (AUTO) 0.4 % (0.0-2.0); EOSINOPHILS % (AUTO) 1.2 % (1.0-6.0); HEMOGLOBIN 11.7 g/dL (13.5-17.5); LYMPHOCYTES # (AUTO) 2.9 K/uL (1.0-4.8); LYMPHOCYTES % (AUTO) 46.7 % (22.0-44.0); MEAN CORPUSCULAR HEMOGLOBIN 31.8 pg (26.0-34.0); MEAN CORPUSCULAR HGB CONC 34.5 G/dL (31.0-37.0); MEAN CORPUSCULAR VOLUME 92 fL (80-100); MONOCYTES # (AUTO) 0.5 K/uL (0.1-1.0); MONOCYTES % (AUTO) 8.5 % (2.0-9.0); NEUTROPHILS # (AUTO) 2.7 K/uL (1.8-7.7); NEUTROPHILS % (AUTO) 43.2 % (40.0-70.0); PLATELET COUNT (AUTO) 105 K/uL (150-450); RED BLOOD CELL COUNT(AUTO) 3.69 MIL/uL (4.50-5.90); RED CELL DISTRIBUTION WIDTH 15.1 % (11.5-14.5)
[2019-06-12 06:15] LABS: INR 1.2 (0.9-1.1); PROTHROMBIN TIME 11.8 SEC (9.4-11.6)
[2019-06-12 06:36] LABS: ALBUMIN 3.4 g/dL (3.4-5.0); BILIRUBIN,TOTAL 0.2 mg/dL (0.1-1.0); CALCIUM, TOTAL 7.8 mg/dL (8.8-10.5); CREATININE 1.8 mg/dL (0.60-1.30); TOTAL PROTEIN, SERUM 7.9 g/dL (6.4-8.2)
[2019-06-12 06:37] LABS: POTASSIUM 2.7 mmol/L (3.5-5.1)
[2019-06-12 06:54] LABS: APPEARANCE,URINE CLEAR (CLEAR); BILIRUBIN,URINE NEGATIVE (NEGATIVE); GLUCOSE, URINE (UA) NEGATIVE (NEGATIVE); KETONES,URINE NEGATIVE (NEGATIVE); LEUKOCYTE ESTERASE ,URINE NEGATIVE (NEGATIVE); NITRATE,URINE NEGATIVE (NEGATIVE); OCCULT BLOOD,URINE NEGATIVE (NEGATIVE); PROTEIN,URINE NEGATIVE (NEGATIVE); UROBILINOGEN,URINE 0.2 mg/dL (<=1.0)
[2019-06-12] MEDS ORDERED: POTASSIUM CHLORIDE 20 MEQ ER TABLET PO ONE ×3 (07:15→18:45)
[2019-06-12] MEDS: POTASSIUM CHL 10 MEQ/WATER 50 ML IV SCH ×4 (07:38→16:55)
[2019-06-12 07:57] LABS: MAGNESIUM 1.2 mg/dL (1.80-2.40)
[2019-06-12] MEDS ORDERED: ACETAMINOPHEN 325 MG TABLET PO PRN ×2 (08:15→16:45)
[2019-06-12] MEDS ORDERED: 0.9% SODIUM CHLORIDE 10 ML SYRINGE IVP PRN (08:15)
[2019-06-12] MEDS ORDERED: ONDANSETRON HCL 4 MG/2 ML VIAL IVP PRN ×2 (08:15→16:45)
[2019-06-12 11:56] VITALS: BP 152/88
[2019-06-12] MEDS ORDERED: SODIUM CHLORIDE 0.9% 500 ML IV ONE (14:34)
[2019-06-12 15:22] VITALS: BP 142/72
[2019-06-12] MEDS ORDERED: ZOLPIDEM TARTRATE 5 MG TABLET PO PRN (16:45)
[2019-06-12] MEDS ORDERED: ALBUTEROL SULFATE 2.5 MG/0.5 ML NEB SOLUTION NEB PRN (16:45)
[2019-06-12] MEDS ORDERED: BISACODYL 10 MG RECTAL RECTAL SUPPOSITORY PR PRN (16:45)
[2019-06-12] MEDS ORDERED: IPRATROPIUM BROMIDE 0.5 MG/2.5 ML NEB SOLUTION NEB PRN (16:45)
[2019-06-12] MEDS ORDERED: MAGNESIUM HYDROXIDE SUSPENSION 30 ML UDCUP PO PRN (16:45)
[2019-06-12] MEDS ORDERED: MAGNESIUM SULFATE 2 GM/WATER 50 ML IV ONE (17:45)
[2019-06-12] MEDS: ISOSORB DINIT/HYDRALAZINE HCL 20-37.5 MG TABLET PO SCH (20:44)
[2019-06-12] MEDS: DOCUSATE SODIUM 100 MG CAPSULE PO SCH (20:44)
[2019-06-12] MEDS: ATORVASTATIN CALCIUM 20 MG TABLET PO SCH (20:44)
[2019-06-12] MEDS: BENZONATATE 100 MG CAPSULE PO SCH (20:44)
[2019-06-12] MEDS: CARVEDILOL 6.25 MG TABLET PO SCH (20:44)
[2019-06-12] MEDS: RANOLAZINE 500 MG ER TABLET PO SCH (20:44)
[2019-06-12] MEDS: GuaiFENesin SR 600 MG ER TABLET PO SCH (20:44)
[2019-06-12 21:41] VITALS: BP 135/78
[2019-06-13] VITALS (7 sets, daily range): BP systolic 116–143; BP diastolic 58–91
[2019-06-13 07:03] LABS: ANION GAP 9 mmol/L (8-16); CALCIUM, TOTAL 8.1 mg/dL (8.8-10.5); CARBON DIOXIDE 25 mmol/L (22-29); CHLORIDE 108 mmol/L (98-107); CREATININE 1.29 mg/dL (0.60-1.30); GLOMERULAR FILTR. RATE CALC > 60 mL/min (>60); GLUCOSE,RANDOM 91 mg/dL (70-110); POTASSIUM 3.4 mmol/L (3.5-5.1); SODIUM SERUM 142 mmol/L (136-145); UREA NITROGEN, BLOOD 20 mg/dL (7-18)
[2019-06-13 07:05] LABS: BASOPHILS % (AUTO) 0.2 % (0.0-2.0); EOSINOPHILS % (AUTO) 1.2 % (1.0-6.0); HEMATOCRIT 31.5 % (41-53); HEMOGLOBIN 10.7 g/dL (13.5-17.5); LYMPHOCYTES # (AUTO) 2.7 K/uL (1.0-4.8); LYMPHOCYTES % (AUTO) 48.7 % (22.0-44.0); MEAN CORPUSCULAR HGB CONC 34.1 G/dL (31.0-37.0); MEAN CORPUSCULAR VOLUME 94 fL (80-100); MONOCYTES # (AUTO) 0.6 K/uL (0.1-1.0); MONOCYTES % (AUTO) 11.1 % (2.0-9.0); NEUTROPHILS # (AUTO) 2.2 K/uL (1.8-7.7); NEUTROPHILS % (AUTO) 38.8 % (40.0-70.0); RED BLOOD CELL COUNT(AUTO) 3.35 MIL/uL (4.50-5.90); RED CELL DISTRIBUTION WIDTH 15.3 % (11.5-14.5)
[2019-06-13 07:13] LABS: PLATELET COUNT (AUTO) 99 K/uL (150-450)
[2019-06-13] MEDS: HEPARIN SODIUM,PORCINE 5,000 UNITS/ML VIAL SQ SCH ×4 (08:00→23:57)
[2019-06-13] MEDS: IPRATROPIUM BROMIDE 0.5 MG/2.5 ML NEB SOLUTION NEB SCH ×3 (09:25→20:12)
[2019-06-13] MEDS: ALBUTEROL SULFATE 2.5 MG/0.5 ML NEB SOLUTION NEB SCH ×3 (09:25→20:12)
[2019-06-13] MEDS: RANOLAZINE 500 MG ER TABLET PO SCH ×2 (10:13→20:52)
[2019-06-13] MEDS: GuaiFENesin SR 600 MG ER TABLET PO SCH ×2 (10:14→20:53)
[2019-06-13] MEDS: ASPIRIN 81 MG CHEWABLE TABLET PO SCH (10:14)
[2019-06-13] MEDS: PANTOPRAZOLE SODIUM 40 MG DR TABLET PO SCH (10:17)
[2019-06-13] MEDS: DOCUSATE SODIUM 100 MG CAPSULE PO SCH ×2 (10:18→20:53)
[2019-06-13] MEDS: ISOSORB DINIT/HYDRALAZINE HCL 20-37.5 MG TABLET PO SCH ×3 (10:18→20:52)
[2019-06-13] MEDS: CARVEDILOL 6.25 MG TABLET PO SCH ×2 (10:18→20:53)
[2019-06-13] MEDS: CLOPIDOGREL BISULFATE 75 MG TABLET PO SCH (10:18)
[2019-06-13] MEDS: BUMETANIDE 1 MG TABLET PO SCH (10:19)
[2019-06-13] MEDS: BENZONATATE 100 MG CAPSULE PO SCH ×3 (10:20→20:53)
[2019-06-13] MEDS ORDERED: POTASSIUM CHLORIDE 20 MEQ ER TABLET PO PRN (10:45)
[2019-06-13] MEDS ORDERED: MAGNESIUM SULFATE 4 GM/WATER 100 ML IV PRN (10:45)
[2019-06-13] MEDS ORDERED: MAGNESIUM SULFATE 2 GM/WATER 50 ML IV PRN (10:45)
[2019-06-13 10:53] LABS: ALBUMIN 2.9 g/dL (3.4-5.0)
[2019-06-13] MEDS: MAGNESIUM OXIDE 400 MG TABLET PO PRN ×2 (11:26→16:24)
[2019-06-13] MEDS: AMIODARONE HCL 200 MG TABLET PO SCH ×2 (16:22→20:53)
[2019-06-13] MEDS: ATORVASTATIN CALCIUM 20 MG TABLET PO SCH (20:52)
[2019-06-13] MEDS: POTASSIUM CHL 10 MEQ/WATER 50 ML IV PRN ×2 (20:57→22:40)
[2019-06-14] MEDS: ALBUTEROL SULFATE 2.5 MG/0.5 ML NEB SOLUTION NEB SCH ×4 (02:00→19:47)
[2019-06-14] MEDS: IPRATROPIUM BROMIDE 0.5 MG/2.5 ML NEB SOLUTION NEB SCH ×4 (02:00→19:47)
[2019-06-14] MEDS: POTASSIUM CHL 10 MEQ/WATER 50 ML IV PRN (02:13)
[2019-06-14 05:33] VITALS: BP 128/76
[2019-06-14 07:15] LABS: ANION GAP 9 mmol/L (8-16); CALCIUM, TOTAL 8.3 mg/dL (8.8-10.5); CARBON DIOXIDE 23 mmol/L (22-29); CHLORIDE 107 mmol/L (98-107); CREATININE 1.32 mg/dL (0.60-1.30); GLOMERULAR FILTR. RATE CALC > 60 mL/min (>60); GLUCOSE,RANDOM 98 mg/dL (70-110); POTASSIUM 3.5 mmol/L (3.5-5.1); SODIUM SERUM 139 mmol/L (136-145); UREA NITROGEN, BLOOD 13 mg/dL (7-18)
[2019-06-14] MEDS: HEPARIN SODIUM,PORCINE 5,000 UNITS/ML VIAL SQ SCH ×3 (08:00→23:27)
[2019-06-14 08:10] VITALS: BP 144/96
[2019-06-14] MEDS: PANTOPRAZOLE SODIUM 40 MG DR TABLET PO SCH (08:31)
[2019-06-14] MEDS: AMIODARONE HCL 200 MG TABLET PO SCH ×3 (08:32→20:41)
[2019-06-14] MEDS: DOCUSATE SODIUM 100 MG CAPSULE PO SCH ×2 (08:32→20:42)
[2019-06-14] MEDS: ASPIRIN 81 MG CHEWABLE TABLET PO SCH (08:32)
[2019-06-14] MEDS: ISOSORB DINIT/HYDRALAZINE HCL 20-37.5 MG TABLET PO SCH ×3 (08:32→20:41)
[2019-06-14] MEDS: BUMETANIDE 1 MG TABLET PO SCH (08:33)
[2019-06-14] MEDS: CLOPIDOGREL BISULFATE 75 MG TABLET PO SCH (08:33)
[2019-06-14] MEDS: CARVEDILOL 6.25 MG TABLET PO SCH ×2 (08:33→20:41)
[2019-06-14] MEDS: BENZONATATE 100 MG CAPSULE PO SCH ×3 (08:35→20:42)
[2019-06-14] MEDS: RANOLAZINE 500 MG ER TABLET PO SCH ×2 (08:35→20:41)
[2019-06-14] MEDS: GuaiFENesin SR 600 MG ER TABLET PO SCH ×2 (08:37→20:42)
[2019-06-14 11:44] VITALS: BP 112/64
[2019-06-14] MEDS ORDERED: MAGNESIUM SULFATE 2 GM/WATER 50 ML IV ONE (14:15)
[2019-06-14] MEDS: SPIRONOLACTONE 50 MG TABLET PO SCH (15:17)
[2019-06-14 16:07] VITALS: BP 141/81
[2019-06-14 19:40] VITALS: BP 152/91
[2019-06-14] MEDS: ATORVASTATIN CALCIUM 20 MG TABLET PO SCH (20:41)
[2019-06-15 00:40] VITALS: BP 129/73
[2019-06-15] MEDS: IPRATROPIUM BROMIDE 0.5 MG/2.5 ML NEB SOLUTION NEB SCH ×2 (02:00→08:36)
[2019-06-15] MEDS: ALBUTEROL SULFATE 2.5 MG/0.5 ML NEB SOLUTION NEB SCH ×2 (02:00→08:36)
[2019-06-15 05:14] VITALS: BP 123/65
[2019-06-15 06:53] LABS: ANION GAP 10 mmol/L (8-16); CALCIUM, TOTAL 8.6 mg/dL (8.8-10.5); CARBON DIOXIDE 25 mmol/L (22-29); CHLORIDE 104 mmol/L (98-107); CREATININE 1.24 mg/dL (0.60-1.30); GLOMERULAR FILTR. RATE CALC > 60 mL/min (>60); GLUCOSE,RANDOM 104 mg/dL (70-110); POTASSIUM 3.5 mmol/L (3.5-5.1); SODIUM SERUM 139 mmol/L (136-145); UREA NITROGEN, BLOOD 11 mg/dL (7-18)
[2019-06-15] MEDS ORDERED: SPIR50 PO (07:48)
[2019-06-15] MEDS ORDERED: MAGN400T40 PO (07:55)
[2019-06-15] MEDS ORDERED: AMIO100T4 PO ×2 (08:04→08:05)
[2019-06-15] MEDS ORDERED: AMIO200T5 PO ×4 (08:07→08:11)
[2019-06-15] MEDS ORDERED: BENZ-51 PO (08:14)
[2019-06-15] MEDS ORDERED: GUAIF600 PO (08:15)
[2019-06-15 08:19] VITALS: BP 123/61
[2019-06-15] MEDS: GuaiFENesin SR 600 MG ER TABLET PO SCH (09:00)
[2019-06-15] MEDS: BENZONATATE 100 MG CAPSULE PO SCH (09:00)
[2019-06-15] MEDS: CARVEDILOL 6.25 MG TABLET PO SCH (09:22)
[2019-06-15] MEDS: CLOPIDOGREL BISULFATE 75 MG TABLET PO SCH (09:22)
[2019-06-15] MEDS: AMIODARONE HCL 200 MG TABLET PO SCH (09:24)
[2019-06-15] MEDS: PANTOPRAZOLE SODIUM 40 MG DR TABLET PO SCH (09:24)
[2019-06-15] MEDS: DOCUSATE SODIUM 100 MG CAPSULE PO SCH (09:24)
[2019-06-15] MEDS: ASPIRIN 81 MG CHEWABLE TABLET PO SCH (09:25)
[2019-06-15] MEDS: HEPARIN SODIUM,PORCINE 5,000 UNITS/ML VIAL SQ SCH (09:25)
[2019-06-15] MEDS: BUMETANIDE 1 MG TABLET PO SCH (09:25)
[2019-06-15] MEDS: SPIRONOLACTONE 50 MG TABLET PO SCH (09:26)
[2019-06-15] MEDS: ISOSORB DINIT/HYDRALAZINE HCL 20-37.5 MG TABLET PO SCH (09:27)
[2019-06-15] MEDS: RANOLAZINE 500 MG ER TABLET PO SCH (09:28)
[2019-06-15 10:33] VITALS: BP 104/57
[2019-06-25] MEDS ORDERED: ERGOCALCIFEROL (VIT D2) 50,000 UNITS CAPSULE PO SCH (09:00)
[2019-06-27] MEDS ORDERED: PANT40VI14 IVP (10:11)
[2019-06-27] MEDS ORDERED: NALO25TA PO (10:11)
[2019-06-27] MEDS ORDERED: FURO40 PO (10:11)
== END 2019-06-15 12:00 | disposition home or self-care (01) | DRG 308 ==
LOC: EMS 05:19 → 5S 11:50
PROVIDERS: ADMIT Internal Medicine; ATTEND Internal Medicine
PROC: 4B02XTZ Measurement of Cardiac Defibrillator, External Approach (ICD-10-PCS; principal; 2019-06-14)
DX: I47.2 Ventricular tachycardia (principal); I50.23 Acute on chronic systolic (congestive) heart failure; N17.9 Acute kidney failure, unspecified; J44.1 Chronic obstructive pulmonary disease with (acute) exacerbation; I11.0 Hypertensive heart disease with heart failure; I25.10 Atherosclerotic heart disease of native coronary artery without angina pectoris; E87.6 Hypokalemia; E78.5 Hyperlipidemia, unspecified; I25.5 Ischemic cardiomyopathy; E11.9 Type 2 diabetes mellitus without complications; I50.9 Heart failure, unspecified; F17.210 Nicotine dependence, cigarettes, uncomplicated; K21.9 Gastro-esophageal reflux disease without esophagitis; I25.2 Old myocardial infarction; E78.00 Pure hypercholesterolemia, unspecified; Z89.021 Acquired absence of right finger(s); E83.42 Hypomagnesemia; Z95.810 Presence of automatic (implantable) cardiac defibrillator; Z88.5 Allergy status to narcotic agent; Z88.8 Allergy status to other drugs, medicaments and biological substances
CPT/HCPCS: 83735; 84132; 93005; 93306; 94640; G0378; J1644; J3475; J3480; J7040

== ENCOUNTER → 2019-06-27 | Outpatient (CLI) | payer MEDICARE, OTHER ==
[~2019-06-27] VITALS: Ht 175.3 cm; Wt 82.0 kg
[~2019-06-27] MED LIST changes: -ALBU8HFA IH; +AMIO200T5 PO; +AMIO200T67 PO; +ASPI-1111 PO; +BENZ-51 PO; +BUME0.5T5 PO; +ERGO500054 PO; +FURO40 PO; +GUAIF600 PO; +MAGN400T40 PO; +OSEL30CA PO; +PANT20TA12 PO; +PANT40TA25 PO; +PANT40VI14 IVP; -PRED10 PO; -PRED20 PO; -PRED5 PO; +SPIR50 PO
[2019-06-27 09:58] VITALS: BP 110/73
== END | disposition home or self-care (01) ==
LOC: SRCNTR 09:58
PROVIDERS: ATTEND Hospitalist
DX: I49.9 Cardiac arrhythmia, unspecified (principal); I11.0 Hypertensive heart disease with heart failure; I50.9 Heart failure, unspecified; E78.5 Hyperlipidemia, unspecified; G89.4 Chronic pain syndrome; M16.11 Unilateral primary osteoarthritis, right hip; I25.2 Old myocardial infarction; M19.90 Unspecified osteoarthritis, unspecified site; K21.9 Gastro-esophageal reflux disease without esophagitis; K92.2 Gastrointestinal hemorrhage, unspecified; B19.20 Unspecified viral hepatitis C without hepatic coma; G47.33 Obstructive sleep apnea (adult) (pediatric); I25.10 Atherosclerotic heart disease of native coronary artery without angina pectoris; M54.9 Dorsalgia, unspecified
CPT/HCPCS: G0463

== ENCOUNTER → 2019-06-30 | Outpatient (CLI) | payer MEDICARE, OTHER ==
[~2019-06-30] MED LIST changes: -AMIO200T67 PO; -ASPI-1111 PO; -BUME0.5T5 PO; -CLOP75TA3 PO; -ERGO500054 PO; -GUAIF600 PO; -OSEL30CA PO; -PANT20TA12 PO; -PANT40TA25 PO; -RANO500T3 PO
[2019-06-30 10:35] LABS: BASOPHILS % (AUTO) 0.5 % (0.0-2.0); EOSINOPHILS % (AUTO) 2.3 % (1.0-6.0); HEMATOCRIT 35.6 % (41-53); HEMOGLOBIN 11.9 g/dL (13.5-17.5); LYMPHOCYTES # (AUTO) 1.5 K/uL (1.0-4.8); LYMPHOCYTES % (AUTO) 28.5 % (22.0-44.0); MEAN CORPUSCULAR HGB CONC 33.3 G/dL (31.0-37.0); MEAN CORPUSCULAR VOLUME 96 fL (80-100); MONOCYTES # (AUTO) 0.5 K/uL (0.1-1.0); NEUTROPHILS % (AUTO) 58.7 % (40.0-70.0); PLATELET COUNT (AUTO) 260 K/uL (150-450); RED BLOOD CELL COUNT(AUTO) 3.71 MIL/uL (4.50-5.90); RED CELL DISTRIBUTION WIDTH 16.3 % (11.5-14.5)
[2019-06-30 10:52] LABS: ALBUMIN 3.9 g/dL (3.4-5.0); BILIRUBIN,TOTAL 0.2 mg/dL (0.1-1.0); CALCIUM, TOTAL 9.5 mg/dL (8.8-10.5); CHOL/HDL RATIO 1.9 (4.2-7.3); CREATININE 3.15 mg/dL (0.60-1.30); FREE T4 (FREE THYROXINE) 1.35 ng/dL (0.76-1.46); POTASSIUM 5.3 mmol/L (3.5-5.1); THYROID STIMULATING HORMONE 2.67 uIU/mL (0.36-3.74)
[2019-06-30 10:54] LABS: HEMOGLOBIN A1C 6.1 % (4.5-6.2)
== END | disposition home or self-care (01) ==
LOC: LABPV 07:35
PROVIDERS: ATTEND Internal Medicine Cardiovascular Disease
DX: I11.0 Hypertensive heart disease with heart failure (principal); I50.9 Heart failure, unspecified; E11.8 Type 2 diabetes mellitus with unspecified complications; E55.9 Vitamin D deficiency, unspecified; R73.09 Other abnormal glucose; D56.5 Hemoglobin E-beta thalassemia
CPT/HCPCS: 82306; 83036; 83735; 84439; 84443

== ENCOUNTER 2019-07-21 05:37 | Inpatient (IN) | payer MEDICARE, OTHER ==
[~2019-07-21] VITALS: Ht 175.3 cm; Wt 82.9 kg
[2019-07-21] MEDS ORDERED: ISOS1TAB2 PO (05:56)
[2019-07-21] MEDS ORDERED: PANT40TA25 PO (05:56)
[2019-07-21] MEDS ORDERED: FURO40 PO (05:56)
[2019-07-21] MEDS ORDERED: ASPI-1111 PO (05:56)
[2019-07-21] MEDS ORDERED: CARV6 PO (05:56)
[2019-07-21] MEDS ORDERED: BUME1TAB34 PO (05:56)
[2019-07-21] MEDS ORDERED: AMIO200T67 PO (05:56)
[2019-07-21] MEDS ORDERED: NALO25TA PO (05:56)
[2019-07-21] MEDS ORDERED: IPRATROPIUM BROMIDE 0.5 MG/2.5 ML NEB SOLUTION NEB ONE (06:15)
[2019-07-21] MEDS ORDERED: ASPIRIN 81 MG CHEWABLE TABLET PO ONE (06:15)
[2019-07-21] MEDS ORDERED: ALBUTEROL SULFATE 2.5 MG/0.5 ML NEB SOLUTION NEB ONE (06:15)
[2019-07-21 06:18] LABS: EOSINOPHILS % (AUTO) 0.2 % (1.0-6.0); HEMATOCRIT 33.7 % (41-53); HEMOGLOBIN 11.3 g/dL (13.5-17.5); LYMPHOCYTES # (AUTO) 1.7 K/uL (1.0-4.8); LYMPHOCYTES % (AUTO) 25.2 % (22.0-44.0); MEAN CORPUSCULAR HEMOGLOBIN 31.8 pg (26.0-34.0); MEAN CORPUSCULAR HGB CONC 33.7 G/dL (31.0-37.0); MEAN CORPUSCULAR VOLUME 95 fL (80-100); MONOCYTES # (AUTO) 0.8 K/uL (0.1-1.0); MONOCYTES % (AUTO) 11.9 % (2.0-9.0); NEUTROPHILS # (AUTO) 4.2 K/uL (1.8-7.7); NEUTROPHILS % (AUTO) 61.7 % (40.0-70.0); PLATELET COUNT (AUTO) 162 K/uL (150-450); RED BLOOD CELL COUNT(AUTO) 3.56 MIL/uL (4.50-5.90); RED CELL DISTRIBUTION WIDTH 16.1 % (11.5-14.5)
[2019-07-21 06:28] LABS: CALCIUM, TOTAL 9.2 mg/dL (8.8-10.5); CREATININE 2.13 mg/dL (0.60-1.30)
[2019-07-21 06:30] LABS: INR 1.1 (0.9-1.1); PROTHROMBIN TIME 11.5 SEC (9.4-11.6)
[2019-07-21] MEDS ORDERED: ACETAMINOPHEN 500 MG TABLET PO ONE (06:45)
[2019-07-21 06:53] LABS: ALBUMIN 3.5 g/dL (3.4-5.0); BILIRUBIN,TOTAL 0.2 mg/dL (0.1-1.0); TOTAL PROTEIN, SERUM 8.1 g/dL (6.4-8.2)
[2019-07-21 07:24] LABS: INFLUENZA TYPE A POSITIVE FOR TYPE A (NEGATIVE); INFLUENZA TYPE B NEGATIVE FOR TYPE B (NEGATIVE)
[2019-07-21] MEDS ORDERED: OSELTAMIVIR PHOSPHATE 75 MG CAPSULE PO ONE (07:30)
[2019-07-21] MEDS ORDERED: BISACODYL 10 MG RECTAL RECTAL SUPPOSITORY PR PRN (08:45)
[2019-07-21] MEDS ORDERED: ACETAMINOPHEN 325 MG TABLET PO PRN (08:45)
[2019-07-21] MEDS: ASPIRIN 81 MG CHEWABLE TABLET PO SCH (08:50)
[2019-07-21] MEDS: DOCUSATE SODIUM 100 MG CAPSULE PO SCH ×2 (08:51→21:00)
[2019-07-21] MEDS: FAMOTIDINE 20 MG TABLET PO SCH (08:51)
[2019-07-21] MEDS: HEPARIN SODIUM,PORCINE 5,000 UNITS/ML VIAL SQ SCH ×2 (08:54→21:44)
[2019-07-21] MEDS ORDERED: OSELTAMIVIR PHOSPHATE 75 MG CAPSULE PO SCH (09:00)
[2019-07-21] MEDS: CARVEDILOL 6.25 MG TABLET PO SCH ×2 (09:10→21:42)
[2019-07-21 11:55] VITALS: BP 121/71
[2019-07-21 16:55] VITALS: BP 121/69
[2019-07-21] MEDS ORDERED: ERGO500054 PO (19:38)
[2019-07-21] MEDS ORDERED: OSELTAMIVIR PHOSPHATE 30 MG CAPSULE PO SCH (20:00)
[2019-07-21 20:13] VITALS: BP 134/75
[2019-07-21] MEDS: OSELTAMIVIR PHOSPHATE 30 MG CAPSULE PO SCH (21:43)
[2019-07-21 23:49] VITALS: BP 102/52
[2019-07-22 00:30] LABS: APPEARANCE,URINE CLEAR (CLEAR); BILIRUBIN,URINE NEGATIVE (NEGATIVE); GLUCOSE, URINE (UA) NEGATIVE (NEGATIVE); KETONES,URINE NEGATIVE (NEGATIVE); LEUKOCYTE ESTERASE ,URINE NEGATIVE (NEGATIVE); NITRATE,URINE NEGATIVE (NEGATIVE); OCCULT BLOOD,URINE NEGATIVE (NEGATIVE); PH,URINE 5.5 (5.0-8.0); PROTEIN,URINE NEGATIVE (NEGATIVE); UROBILINOGEN,URINE 0.2 mg/dL (<=1.0)
[2019-07-22 05:12] VITALS: BP 127/72
[2019-07-22 07:09] LABS: CALCIUM, TOTAL 9.3 mg/dL (8.8-10.5); CREATININE 1.64 mg/dL (0.60-1.30)
[2019-07-22 07:31] VITALS: BP 134/74
[2019-07-22] MEDS: OSELTAMIVIR PHOSPHATE 30 MG CAPSULE PO SCH ×2 (08:07→21:38)
[2019-07-22] MEDS: CARVEDILOL 6.25 MG TABLET PO SCH ×2 (08:07→21:38)
[2019-07-22] MEDS: ASPIRIN 81 MG CHEWABLE TABLET PO SCH (08:07)
[2019-07-22] MEDS: DOCUSATE SODIUM 100 MG CAPSULE PO SCH ×2 (08:08→21:00)
[2019-07-22] MEDS: HEPARIN SODIUM,PORCINE 5,000 UNITS/ML VIAL SQ SCH ×2 (08:08→21:38)
[2019-07-22] MEDS: FAMOTIDINE 20 MG TABLET PO SCH (08:08)
[2019-07-22] MEDS ORDERED: BENZONATATE 100 MG CAPSULE PO PRN (10:45)
[2019-07-22] MEDS: FUROSEMIDE 40 MG/4 ML VIAL IVP SCH (11:01)
[2019-07-22 11:43] VITALS: BP 139/72
[2019-07-22 19:57] VITALS: BP 112/53
[2019-07-23 00:16] VITALS: BP 122/70
[2019-07-23 05:02] VITALS: BP 116/65
[2019-07-23 07:42] LABS: CREATININE 1.52 mg/dL (0.60-1.30)
[2019-07-23 08:15] VITALS: BP 140/84
[2019-07-23] MEDS: FAMOTIDINE 20 MG TABLET PO SCH (08:28)
[2019-07-23] MEDS: CARVEDILOL 6.25 MG TABLET PO SCH (08:28)
[2019-07-23] MEDS: FUROSEMIDE 40 MG/4 ML VIAL IVP SCH (08:28)
[2019-07-23] MEDS: OSELTAMIVIR PHOSPHATE 30 MG CAPSULE PO SCH (08:28)
[2019-07-23] MEDS: DOCUSATE SODIUM 100 MG CAPSULE PO SCH (08:28)
[2019-07-23] MEDS: ASPIRIN 81 MG CHEWABLE TABLET PO SCH (08:29)
[2019-07-23] MEDS: HEPARIN SODIUM,PORCINE 5,000 UNITS/ML VIAL SQ SCH (08:33)
[2019-07-23] MEDS ORDERED: OSEL30CA PO (12:41)
[2019-07-23 12:56] VITALS: BP 119/70
[2019-08-28] MEDS ORDERED: BUME0.5T5 PO (10:01)
[2019-08-28] MEDS ORDERED: NALO25TA PO (10:01)
[2019-08-28] MEDS ORDERED: PANT20TA12 PO (10:01)
== END 2019-07-23 13:00 | disposition home or self-care (01) | DRG 193 ==
LOC: EMS 05:37 → 5N 09:55
PROVIDERS: ADMIT Internal Medicine; ATTEND Internal Medicine
DX: J10.00 Influenza due to other identified influenza virus with unspecified type of pneumonia (principal); J96.01 Acute respiratory failure with hypoxia; J44.1 Chronic obstructive pulmonary disease with (acute) exacerbation; I50.22 Chronic systolic (congestive) heart failure; N17.9 Acute kidney failure, unspecified; J44.0 Chronic obstructive pulmonary disease with (acute) lower respiratory infection; N40.0 Benign prostatic hyperplasia without lower urinary tract symptoms; I25.5 Ischemic cardiomyopathy; I25.10 Atherosclerotic heart disease of native coronary artery without angina pectoris; K21.9 Gastro-esophageal reflux disease without esophagitis; E78.00 Pure hypercholesterolemia, unspecified; I11.0 Hypertensive heart disease with heart failure; Z88.8 Allergy status to other drugs, medicaments and biological substances; Z88.6 Allergy status to analgesic agent; Z79.899 Other long term (current) drug therapy; I25.2 Old myocardial infarction; Z89.111 Acquired absence of right hand; Z98.890 Other specified postprocedural states; Z87.891 Personal history of nicotine dependence; Z72.89 Other problems related to lifestyle; Z95.810 Presence of automatic (implantable) cardiac defibrillator
CPT/HCPCS: 87804; 93005; 94060; 94640; J1644; J1940

== ENCOUNTER → 2019-07-24 | Outpatient (CLI) | payer MEDICARE, OTHER ==
[~2019-07-24] MED LIST changes: -AMIO200T5 PO; +ASPI-1111 PO; -ASPI-825 PO; -BENZ-51 PO; +BUME0.5T5 PO; -BUME1TAB34 PO; -ERGO500014 PO; +ERGO500054 PO; -MAGN400T40 PO; +OSEL30CA PO; +PANT20TA12 PO; -PANT40VI14 IVP; -SPIR50 PO
[2019-07-24 09:29] LABS: BASOPHILS % (AUTO) 0.7 % (0.0-2.0); EOSINOPHILS % (AUTO) 2.2 % (1.0-6.0); HEMATOCRIT 34.2 % (41-53); HEMOGLOBIN 11.5 g/dL (13.5-17.5); LYMPHOCYTES # (AUTO) 2.1 K/uL (1.0-4.8); LYMPHOCYTES % (AUTO) 47.3 % (22.0-44.0); MEAN CORPUSCULAR HEMOGLOBIN 31.6 pg (26.0-34.0); MEAN CORPUSCULAR HGB CONC 33.5 G/dL (31.0-37.0); MEAN CORPUSCULAR VOLUME 94 fL (80-100); MONOCYTES # (AUTO) 0.5 K/uL (0.1-1.0); MONOCYTES % (AUTO) 11.7 % (2.0-9.0); NEUTROPHILS # (AUTO) 1.7 K/uL (1.8-7.7); NEUTROPHILS % (AUTO) 38.1 % (40.0-70.0); PLATELET COUNT (AUTO) 175 K/uL (150-450); RED BLOOD CELL COUNT(AUTO) 3.62 MIL/uL (4.50-5.90); RED CELL DISTRIBUTION WIDTH 16.2 % (11.5-14.5)
[2019-07-24 09:45] LABS: HEMOGLOBIN A1C 5.9 % (4.5-6.2)
[2019-07-24 10:10] LABS: ALBUMIN 3.6 g/dL (3.4-5.0); BILIRUBIN,TOTAL 0.2 mg/dL (0.1-1.0); CALCIUM, TOTAL 9.1 mg/dL (8.8-10.5); CHOL/HDL RATIO 2.6 (4.2-7.3); CREATININE 2.15 mg/dL (0.60-1.30); FREE T4 (FREE THYROXINE) 1.51 ng/dL (0.76-1.46); MAGNESIUM 1.8 mg/dL (1.80-2.40); POTASSIUM 4.1 mmol/L (3.5-5.1); THYROID STIMULATING HORMONE 1.61 uIU/mL (0.36-3.74); TOTAL PROTEIN, SERUM 8.6 g/dL (6.4-8.2)
== END | disposition home or self-care (01) ==
LOC: LABPV 07:14
PROVIDERS: ATTEND Internal Medicine Cardiovascular Disease
DX: I11.0 Hypertensive heart disease with heart failure (principal); I50.9 Heart failure, unspecified; E11.8 Type 2 diabetes mellitus with unspecified complications; E55.9 Vitamin D deficiency, unspecified; D56.5 Hemoglobin E-beta thalassemia
CPT/HCPCS: 82306; 83036; 83735; 84439; 84443

== ENCOUNTER → 2019-08-07 | Outpatient (CLI) | payer MEDICARE, OTHER ==
[2019-08-07 10:29] LABS: BASOPHILS % (AUTO) 1.3 % (0.0-2.0); EOSINOPHILS % (AUTO) 1.5 % (1.0-6.0); HEMATOCRIT 32.7 % (41-53); LYMPHOCYTES # (AUTO) 1.9 K/uL (1.0-4.8); MEAN CORPUSCULAR HEMOGLOBIN 31.9 pg (26.0-34.0); MEAN CORPUSCULAR HGB CONC 33.7 G/dL (31.0-37.0); MEAN CORPUSCULAR VOLUME 95 fL (80-100); MONOCYTES # (AUTO) 0.7 K/uL (0.1-1.0); MONOCYTES % (AUTO) 12.2 % (2.0-9.0); NEUTROPHILS # (AUTO) 3.3 K/uL (1.8-7.7); PLATELET COUNT (AUTO) 212 K/uL (150-450); RED BLOOD CELL COUNT(AUTO) 3.46 MIL/uL (4.50-5.90); RED CELL DISTRIBUTION WIDTH 16.8 % (11.5-14.5)
[2019-08-07 10:50] LABS: ALBUMIN 3.6 g/dL (3.4-5.0); BILIRUBIN,TOTAL 0.3 mg/dL (0.1-1.0); CALCIUM, TOTAL 9.6 mg/dL (8.8-10.5); CHOL/HDL RATIO 2.3 (4.2-7.3); CREATININE 1.78 mg/dL (0.60-1.30); FREE T4 (FREE THYROXINE) 1.32 ng/dL (0.76-1.46); MAGNESIUM 2.4 mg/dL (1.80-2.40); POTASSIUM 4.2 mmol/L (3.5-5.1); THYROID STIMULATING HORMONE 1.73 uIU/mL (0.36-3.74); TOTAL PROTEIN, SERUM 8.4 g/dL (6.4-8.2)
[2019-08-07 10:52] LABS: HEMOGLOBIN A1C 5.9 % (4.5-6.2)
== END | disposition home or self-care (01) ==
LOC: LABPV 07:36
PROVIDERS: ATTEND Internal Medicine Cardiovascular Disease
DX: I11.0 Hypertensive heart disease with heart failure (principal); I50.9 Heart failure, unspecified; E11.8 Type 2 diabetes mellitus with unspecified complications; E55.9 Vitamin D deficiency, unspecified; D56.5 Hemoglobin E-beta thalassemia
CPT/HCPCS: 82306; 83036; 83735; 84439; 84443

== ENCOUNTER → 2019-08-28 | Outpatient (CLI) | payer MEDICARE, OTHER ==
[~2019-08-28] VITALS: Ht 175.3 cm; Wt 82.0 kg
[2019-08-28 09:56] VITALS: BP 118/65
== END | disposition home or self-care (01) ==
LOC: SRCNTR 09:54
PROVIDERS: ATTEND Hospitalist
DX: I11.0 Hypertensive heart disease with heart failure (principal); I50.9 Heart failure, unspecified; E78.5 Hyperlipidemia, unspecified; I25.2 Old myocardial infarction; M81.0 Age-related osteoporosis without current pathological fracture; K21.9 Gastro-esophageal reflux disease without esophagitis; G47.33 Obstructive sleep apnea (adult) (pediatric); G89.4 Chronic pain syndrome
CPT/HCPCS: G0463

== ENCOUNTER → 2019-12-25 | Outpatient (CLI) | payer MEDICARE, OTHER ==
[~2019-12-25] MED LIST changes: -OSEL30CA PO
== END | disposition home or self-care (01) ==
LOC: SRCNTR 12:31
PROVIDERS: ATTEND Hospitalist
DX: K21.9 Gastro-esophageal reflux disease without esophagitis (principal); M19.90 Unspecified osteoarthritis, unspecified site; K92.2 Gastrointestinal hemorrhage, unspecified; I11.0 Hypertensive heart disease with heart failure; I50.9 Heart failure, unspecified; G47.33 Obstructive sleep apnea (adult) (pediatric); M54.5 Low back pain; G89.29 Other chronic pain; R07.0 Pain in throat; I25.2 Old myocardial infarction; B19.20 Unspecified viral hepatitis C without hepatic coma; Z79.899 Other long term (current) drug therapy; Z88.8 Allergy status to other drugs, medicaments and biological substances; Z95.810 Presence of automatic (implantable) cardiac defibrillator; Z95.828 Presence of other vascular implants and grafts; Z98.890 Other specified postprocedural states
CPT/HCPCS: Q3014

== ENCOUNTER → 2020-01-19 | Outpatient (CLI) | payer MEDICARE, OTHER ==
[2020-01-19 10:23] LABS: BASOPHILS % (AUTO) 0.6 % (0.0-2.0); EOSINOPHILS % (AUTO) 2.3 % (1.0-6.0); HEMATOCRIT 33.3 % (41-53); HEMOGLOBIN 11.3 g/dL (13.5-17.5); LYMPHOCYTES # (AUTO) 2.4 K/uL (1.0-4.8); LYMPHOCYTES % (AUTO) 39.9 % (22.0-44.0); MEAN CORPUSCULAR HEMOGLOBIN 32.7 pg (26.0-34.0); MEAN CORPUSCULAR VOLUME 96 fL (80-100); MONOCYTES # (AUTO) 0.6 K/uL (0.1-1.0); MONOCYTES % (AUTO) 10.6 % (2.0-9.0); NEUTROPHILS # (AUTO) 2.8 K/uL (1.8-7.7); NEUTROPHILS % (AUTO) 46.6 % (40.0-70.0); PLATELET COUNT (AUTO) 212 K/uL (150-450); RED BLOOD CELL COUNT(AUTO) 3.47 MIL/uL (4.50-5.90)
[2020-01-19 11:06] LABS: ALBUMIN 3.3 g/dL (3.4-5.0); BILIRUBIN,TOTAL 0.3 mg/dL (0.1-1.0); CALCIUM, TOTAL 8.9 mg/dL (8.8-10.5); CHOL/HDL RATIO 1.6 (4.2-7.3); CREATININE 2.52 mg/dL (0.60-1.30); FREE T4 (FREE THYROXINE) 1.21 ng/dL (0.76-1.46); MAGNESIUM 1.9 mg/dL (1.80-2.40); POTASSIUM 4.2 mmol/L (3.5-5.1); THYROID STIMULATING HORMONE 1.65 uIU/mL (0.36-3.74); TOTAL PROTEIN, SERUM 8.1 g/dL (6.4-8.2)
[2020-01-19 11:07] LABS: HEMOGLOBIN A1C 5.5 % (3.8-5.6)
[2020-01-19 11:17] LABS: URIC ACID 11.8 mg/dL (2.6-7.2)
== END | disposition home or self-care (01) ==
LOC: LABPV 07:27
PROVIDERS: ATTEND Internal Medicine Cardiovascular Disease
DX: E11.8 Type 2 diabetes mellitus with unspecified complications (principal); I50.9 Heart failure, unspecified; E55.9 Vitamin D deficiency, unspecified; D56.5 Hemoglobin E-beta thalassemia
CPT/HCPCS: 82306; 83036; 83735; 84439; 84443; 84550

== ENCOUNTER → 2020-08-26 | Outpatient (CLI) | payer MEDICARE, OTHER ==
[~2020-08-26] MED LIST changes: -ASPI-1111 PO; +ASPI-1444 PO; -NALO25TA PO; +NALO25TA4 PO; -PANT20TA12 PO; +PANT20TA18 PO
== END | disposition home or self-care (01) ==
LOC: SRCNTR 11:06
PROVIDERS: ATTEND Hospitalist
DX: E11.65 Type 2 diabetes mellitus with hyperglycemia (principal); I10 Essential (primary) hypertension; K21.9 Gastro-esophageal reflux disease without esophagitis; M54.5 Low back pain
CPT/HCPCS: G0463

== ENCOUNTER → 2020-08-30 | Outpatient (CLI) | payer MEDICARE, OTHER ==
[2020-08-30 10:31] LABS: BASOPHILS % (AUTO) 0.6 % (0.0-2.0); EOSINOPHILS % (AUTO) 1.1 % (1.0-6.0); HEMOGLOBIN 12.7 g/dL (13.5-17.5); LYMPHOCYTES # (AUTO) 2.1 K/uL (1.0-4.8); LYMPHOCYTES % (AUTO) 41.3 % (22.0-44.0); MEAN CORPUSCULAR HEMOGLOBIN 32.5 pg (26.0-34.0); MEAN CORPUSCULAR HGB CONC 33.4 G/dL (31.0-37.0); MEAN CORPUSCULAR VOLUME 97 fL (80-100); MONOCYTES # (AUTO) 0.6 K/uL (0.1-1.0); MONOCYTES % (AUTO) 11.7 % (2.0-9.0); NEUTROPHILS # (AUTO) 2.3 K/uL (1.8-7.7); NEUTROPHILS % (AUTO) 45.3 % (40.0-70.0); PLATELET COUNT (AUTO) 139 K/uL (150-450); RED BLOOD CELL COUNT(AUTO) 3.91 MIL/uL (4.50-5.90); RED CELL DISTRIBUTION WIDTH 15.6 % (11.5-14.5)
[2020-08-30 10:53] LABS: ALBUMIN 3.7 g/dL (3.4-5.0); BILIRUBIN,TOTAL 0.3 mg/dL (0.1-1.0); CALCIUM, TOTAL 8.9 mg/dL (8.8-10.5); CHOL/HDL RATIO 5.1 (4.2-7.3); CREATININE 1.79 mg/dL (0.60-1.30); FREE T4 (FREE THYROXINE) 1.34 ng/dL (0.76-1.46); MAGNESIUM 2.1 mg/dL (1.80-2.40); POTASSIUM 3.7 mmol/L (3.5-5.1); THYROID STIMULATING HORMONE 0.5 uIU/mL (0.36-3.74)
[2020-08-30 10:56] LABS: HEMOGLOBIN A1C 5.5 % (3.8-5.6)
== END | disposition home or self-care (01) ==
LOC: LABPV 07:35
PROVIDERS: ATTEND Internal Medicine Cardiovascular Disease
DX: I11.0 Hypertensive heart disease with heart failure (principal); I50.9 Heart failure, unspecified; E11.8 Type 2 diabetes mellitus with unspecified complications; E55.9 Vitamin D deficiency, unspecified; D56.5 Hemoglobin E-beta thalassemia
CPT/HCPCS: 82306; 83036; 83735; 84439; 84443

== ENCOUNTER → 2020-10-05 | Outpatient (CLI) | payer MEDICARE, OTHER ==
[2020-10-05 09:48] LABS: BASOPHILS % (AUTO) 0.6 % (0.0-2.0); EOSINOPHILS % (AUTO) 2.8 % (1.0-6.0); HEMATOCRIT 35.8 % (41-53); HEMOGLOBIN 11.8 g/dL (13.5-17.5); LYMPHOCYTES # (AUTO) 2.3 K/uL (1.0-4.8); LYMPHOCYTES % (AUTO) 48.9 % (22.0-44.0); MEAN CORPUSCULAR HEMOGLOBIN 32.3 pg (26.0-34.0); MEAN CORPUSCULAR VOLUME 98 fL (80-100); MONOCYTES # (AUTO) 0.5 K/uL (0.1-1.0); MONOCYTES % (AUTO) 9.5 % (2.0-9.0); NEUTROPHILS # (AUTO) 1.8 K/uL (1.8-7.7); NEUTROPHILS % (AUTO) 38.2 % (40.0-70.0); PLATELET COUNT (AUTO) 182 K/uL (150-450); RED BLOOD CELL COUNT(AUTO) 3.66 MIL/uL (4.50-5.90)
[2020-10-05 10:00] LABS: HEMOGLOBIN A1C 5.6 % (3.8-5.6)
[2020-10-05 10:07] LABS: ALBUMIN 3.9 g/dL (3.4-5.0); BILIRUBIN,TOTAL 0.2 mg/dL (0.1-1.0); CALCIUM, TOTAL 9.8 mg/dL (8.8-10.5); CHOL/HDL RATIO 2.4 (4.2-7.3); CREATININE 1.66 mg/dL (0.60-1.30); FREE T4 (FREE THYROXINE) 1.15 ng/dL (0.76-1.46); MAGNESIUM 2.5 mg/dL (1.80-2.40); THYROID STIMULATING HORMONE 1.22 uIU/mL (0.36-3.74); TOTAL PROTEIN, SERUM 8.6 g/dL (6.4-8.2)
== END | disposition home or self-care (01) ==
LOC: LABPV 08:37
PROVIDERS: ATTEND Internal Medicine Cardiovascular Disease
DX: I11.0 Hypertensive heart disease with heart failure (principal); I50.9 Heart failure, unspecified; E11.8 Type 2 diabetes mellitus with unspecified complications; E55.9 Vitamin D deficiency, unspecified; D56.5 Hemoglobin E-beta thalassemia
CPT/HCPCS: 82306; 83036; 83735; 84439; 84443

== ENCOUNTER → 2020-10-08 | Outpatient (CLI) | payer MEDICARE, OTHER | END | disposition home or self-care (01) | LOC: LABPV 07:50 | PROVIDERS: ATTEND Hospitalist | DX: M10.9 Gout, unspecified (principal) | CPT/HCPCS: 84550 ==

== ENCOUNTER → 2020-11-25 | Outpatient (CLI) | payer MEDICARE, OTHER | END | disposition home or self-care (01) | LOC: SRCNTR 10:36 → EDSTATUS 11:35 | PROVIDERS: ATTEND Hospitalist | DX: I11.0 Hypertensive heart disease with heart failure (principal); I50.9 Heart failure, unspecified; I25.2 Old myocardial infarction; E78.5 Hyperlipidemia, unspecified; K21.9 Gastro-esophageal reflux disease without esophagitis; G47.33 Obstructive sleep apnea (adult) (pediatric); I25.10 Atherosclerotic heart disease of native coronary artery without angina pectoris; M54.9 Dorsalgia, unspecified; G89.4 Chronic pain syndrome; K92.2 Gastrointestinal hemorrhage, unspecified; B19.20 Unspecified viral hepatitis C without hepatic coma; M19.90 Unspecified osteoarthritis, unspecified site; Z88.8 Allergy status to other drugs, medicaments and biological substances; Z79.899 Other long term (current) drug therapy | CPT/HCPCS: 93005; G0463 ==

== ENCOUNTER → 2020-12-29 | Outpatient (CLI) | payer MEDICARE, OTHER ==
[~2020-12-29] VITALS: Ht 175.3 cm; Wt 83.4 kg
[2020-12-29 10:23] VITALS: BP 121/63
== END | disposition home or self-care (01) ==
LOC: EDSTATUS 10:00 → SRCNTR 10:02
PROVIDERS: ATTEND Hospitalist
DX: I11.0 Hypertensive heart disease with heart failure (principal); I50.9 Heart failure, unspecified; I21.29 ST elevation (STEMI) myocardial infarction involving other sites; M19.90 Unspecified osteoarthritis, unspecified site; E78.5 Hyperlipidemia, unspecified; K21.9 Gastro-esophageal reflux disease without esophagitis; K92.2 Gastrointestinal hemorrhage, unspecified; B19.20 Unspecified viral hepatitis C without hepatic coma; G47.33 Obstructive sleep apnea (adult) (pediatric); I25.10 Atherosclerotic heart disease of native coronary artery without angina pectoris; M54.9 Dorsalgia, unspecified; G89.4 Chronic pain syndrome
CPT/HCPCS: G0463

== ENCOUNTER → 2021-02-22 | Outpatient (CLI) | payer MEDICARE, OTHER ==
[2021-02-22 09:59] LABS: BASOPHILS % (AUTO) 0.3 % (0.0-2.0); HEMATOCRIT 36.8 % (41-53); HEMOGLOBIN 12.1 g/dL (13.5-17.5); LYMPHOCYTES # (AUTO) 1.8 K/uL (1.0-4.8); LYMPHOCYTES % (AUTO) 42.2 % (22.0-44.0); MEAN CORPUSCULAR HEMOGLOBIN 30.4 pg (26.0-34.0); MEAN CORPUSCULAR HGB CONC 32.9 G/dL (31.0-37.0); MEAN CORPUSCULAR VOLUME 92 fL (80-100); MONOCYTES # (AUTO) 0.4 K/uL (0.1-1.0); NEUTROPHILS # (AUTO) 1.9 K/uL (1.8-7.7); NEUTROPHILS % (AUTO) 43.5 % (40.0-70.0); PLATELET COUNT (AUTO) 151 K/uL (150-450); RED BLOOD CELL COUNT(AUTO) 3.98 MIL/uL (4.50-5.90); RED CELL DISTRIBUTION WIDTH 15.9 % (11.5-14.5)
[2021-02-22 10:07] LABS: HEMOGLOBIN A1C 5.9 % (3.8-5.6)
[2021-02-22 10:17] LABS: ALBUMIN 3.9 g/dL (3.4-5.0); BILIRUBIN,TOTAL 0.2 mg/dL (0.1-1.0); CALCIUM, TOTAL 9.1 mg/dL (8.8-10.5); CHOL/HDL RATIO 2.7 (4.2-7.3); CREATININE 1.48 mg/dL (0.60-1.30); FREE THYROXINE INDEX 3.2 (1.4-4.5); MAGNESIUM 2.2 mg/dL (1.80-2.40); POTASSIUM 4.3 mmol/L (3.5-5.1); TOTAL PROTEIN, SERUM 8.6 g/dL (6.4-8.2)
== END | disposition home or self-care (01) ==
LOC: LABPV 08:59
PROVIDERS: ATTEND Internal Medicine Cardiovascular Disease
DX: I11.0 Hypertensive heart disease with heart failure (principal); E11.8 Type 2 diabetes mellitus with unspecified complications; E55.9 Vitamin D deficiency, unspecified; D56.5 Hemoglobin E-beta thalassemia
CPT/HCPCS: 80053; 80061; 82306; 83036; 83735; 83880; 84436; 84479; 85025

== ENCOUNTER → 2021-03-02 | Outpatient (CLI) | payer MEDICARE, OTHER | END | disposition home or self-care (01) | LOC: LABMN 07:37 | PROVIDERS: ATTEND Nurse Practitioner | DX: C61 Malignant neoplasm of prostate (principal) | CPT/HCPCS: 84153 ==

== ENCOUNTER → 2021-03-23 | Outpatient (CLI) | payer MEDICARE, OTHER ==
[~2021-03-23] VITALS: Ht 177.8 cm; Wt 81.2 kg
[2021-03-23 11:35] VITALS: BP 132/70
== END | disposition home or self-care (01) ==
LOC: SRCNTR 10:18
PROVIDERS: ATTEND Hospitalist
DX: I11.0 Hypertensive heart disease with heart failure (principal); I50.9 Heart failure, unspecified; K21.9 Gastro-esophageal reflux disease without esophagitis; G47.33 Obstructive sleep apnea (adult) (pediatric); I25.10 Atherosclerotic heart disease of native coronary artery without angina pectoris; I21.29 ST elevation (STEMI) myocardial infarction involving other sites; G89.29 Other chronic pain; M54.9 Dorsalgia, unspecified; E78.5 Hyperlipidemia, unspecified; M19.90 Unspecified osteoarthritis, unspecified site; K92.2 Gastrointestinal hemorrhage, unspecified; B19.20 Unspecified viral hepatitis C without hepatic coma
CPT/HCPCS: G0463

== ENCOUNTER → 2021-03-31 | Outpatient (CLI) | payer MEDICARE, OTHER ==
[2021-03-31 12:21] LABS: BASOPHILS % (AUTO) 0.9 % (0.0-2.0); HEMATOCRIT 52.7 % (41-53); HEMOGLOBIN 17.2 g/dL (13.5-17.5); LYMPHOCYTES # (AUTO) 2.4 K/uL (1.0-4.8); LYMPHOCYTES % (AUTO) 46.1 % (22.0-44.0); MEAN CORPUSCULAR HEMOGLOBIN 30.2 pg (26.0-34.0); MEAN CORPUSCULAR HGB CONC 32.6 G/dL (31.0-37.0); MEAN CORPUSCULAR VOLUME 93 fL (80-100); MONOCYTES # (AUTO) 0.4 K/uL (0.1-1.0); MONOCYTES % (AUTO) 6.7 % (2.0-9.0); NEUTROPHILS # (AUTO) 2.3 K/uL (1.8-7.7); NEUTROPHILS % (AUTO) 43.3 % (40.0-70.0); PLATELET COUNT (AUTO) 132 K/uL (150-450); RED BLOOD CELL COUNT(AUTO) 5.68 MIL/uL (4.50-5.90)
[2021-03-31 12:34] LABS: HEMOGLOBIN A1C 5.9 % (3.8-5.6)
[2021-03-31 13:10] LABS: ALBUMIN 4.4 g/dL (3.4-5.0); BILIRUBIN,TOTAL 0.3 mg/dL (0.1-1.0); CALCIUM, TOTAL 9.1 mg/dL (8.8-10.5); CHOL/HDL RATIO 2.5 (4.2-7.3); CREATININE 1.43 mg/dL (0.60-1.30); FREE T4 (FREE THYROXINE) 1.12 ng/dL (0.76-1.46); MAGNESIUM 1.7 mg/dL (1.80-2.40); THYROID STIMULATING HORMONE 0.55 uIU/mL (0.36-3.74); TOTAL PROTEIN, SERUM 8.8 g/dL (6.4-8.2)
== END | disposition home or self-care (01) ==
LOC: LABPV 07:27
PROVIDERS: ATTEND Internal Medicine Cardiovascular Disease
DX: D56.5 Hemoglobin E-beta thalassemia (principal); I11.0 Hypertensive heart disease with heart failure; I50.9 Heart failure, unspecified; E11.8 Type 2 diabetes mellitus with unspecified complications; E55.9 Vitamin D deficiency, unspecified
CPT/HCPCS: 80053; 80061; 83036; 83735; 84439; 84443; 85025

== ENCOUNTER → 2021-04-07 | Outpatient (CLI) | payer MEDICARE, OTHER | END | disposition home or self-care (01) | LOC: LABPV 09:59 | PROVIDERS: ATTEND Nurse Practitioner | DX: C61 Malignant neoplasm of prostate (principal) | CPT/HCPCS: 84153 ==

== ENCOUNTER → 2021-06-17 | Outpatient (CLI) | payer MEDICARE, OTHER | END | disposition home or self-care (01) | LOC: SRCNTR 10:19 | PROVIDERS: ATTEND Hospitalist | DX: I11.0 Hypertensive heart disease with heart failure (principal); I50.9 Heart failure, unspecified; K21.9 Gastro-esophageal reflux disease without esophagitis; E78.5 Hyperlipidemia, unspecified; G47.33 Obstructive sleep apnea (adult) (pediatric); I25.10 Atherosclerotic heart disease of native coronary artery without angina pectoris; G89.4 Chronic pain syndrome; M54.50 Low back pain, unspecified; B19.20 Unspecified viral hepatitis C without hepatic coma; K92.2 Gastrointestinal hemorrhage, unspecified; I21.29 ST elevation (STEMI) myocardial infarction involving other sites; M19.90 Unspecified osteoarthritis, unspecified site | CPT/HCPCS: G0463; Z7500 ==

== ENCOUNTER → 2021-08-04 | Outpatient (CLI) | payer MEDICARE, OTHER ==
[~2021-08-04] VITALS: Ht 175.3 cm; Wt 83.0 kg
[~2021-08-04] MED LIST changes: +APIX5TAB PO; +HYDR25TA84 PO; +ISOS20TA9 PO; +SOTA80 PO
[2021-08-04 09:17] VITALS: BP 106/58
== END | disposition home or self-care (01) ==
LOC: SRCNTR 08:40
PROVIDERS: ATTEND Hospitalist
DX: I11.0 Hypertensive heart disease with heart failure (principal); G89.4 Chronic pain syndrome; I50.9 Heart failure, unspecified; E78.5 Hyperlipidemia, unspecified; K21.9 Gastro-esophageal reflux disease without esophagitis; M19.90 Unspecified osteoarthritis, unspecified site; I21.A1 Myocardial infarction type 2; K92.2 Gastrointestinal hemorrhage, unspecified; B19.20 Unspecified viral hepatitis C without hepatic coma; G47.33 Obstructive sleep apnea (adult) (pediatric); I25.10 Atherosclerotic heart disease of native coronary artery without angina pectoris; M54.89 Other dorsalgia; I47.1 Supraventricular tachycardia
CPT/HCPCS: G0463

== ENCOUNTER → 2021-09-07 | Outpatient (CLI) | payer MEDICARE, OTHER ==
[~2021-09-07] MED LIST changes: -BUME0.5T5 PO; -CARV6 PO; +COLC0.6T73 PO; -ERGO500054 PO; -ISOS1TAB2 PO; -NALO25TA4 PO
[2021-09-07 13:50] LABS: BASOPHILS % (AUTO) 0.3 % (0.0-2.0); EOSINOPHILS % (AUTO) 1.9 % (1.0-6.0); HEMATOCRIT 35.1 % (41-53); LYMPHOCYTES % (AUTO) 47.3 % (22.0-44.0); MEAN CORPUSCULAR HEMOGLOBIN 31.5 pg (26.0-34.0); MEAN CORPUSCULAR HGB CONC 34.1 G/dL (31.0-37.0); MEAN CORPUSCULAR VOLUME 92 fL (80-100); MONOCYTES # (AUTO) 0.6 K/uL (0.1-1.0); MONOCYTES % (AUTO) 14.2 % (2.0-9.0); NEUTROPHILS # (AUTO) 1.6 K/uL (1.8-7.7); NEUTROPHILS % (AUTO) 36.3 % (40.0-70.0); PLATELET COUNT (AUTO) 144 K/uL (150-450)
[2021-09-07 14:10] LABS: HEMOGLOBIN A1C 5.9 % (3.8-5.6)
[2021-09-07 14:13] LABS: B-TYPE NATRIURETIC PEPTIDE 643 pg/mL (0-100)
[2021-09-07 15:17] LABS: ALANINE AMINOTRANSFERASE 19 U/L (12-78); ALBUMIN 3.8 g/dL (3.4-5.0); ALKALINE PHOSPHATASE 78 U/L (46-116); ANION GAP 10 mmol/L (8-16); ASPARTATE AMINOTRANSFERASE 23 U/L (15-37); BILIRUBIN,TOTAL 0.3 mg/dL (0.1-1.0); CALCIUM, TOTAL 9.4 mg/dL (8.8-10.5); CARBON DIOXIDE 27 mmol/L (22-29); CHLORIDE 101 mmol/L (98-107); CHOL/HDL RATIO 2.4 (4.2-7.3); CHOLESTEROL 135 mg/dL (131-200); CREATININE 1.36 mg/dL (0.60-1.30); FREE T4 (FREE THYROXINE) 1.31 ng/dL (0.76-1.46); GLUCOSE,RANDOM 91 mg/dL (70-110); HDL CHOLESTEROL 57 mg/dL (40-60); LDL CHOL (CALC.) 65 mg/dL (0-130); POTASSIUM 4.4 mmol/L (3.5-5.1); SODIUM SERUM 138 mmol/L (136-145); THYROID STIMULATING HORMONE 0.99 uIU/mL (0.36-3.74); TOTAL PROTEIN, SERUM 8.5 g/dL (6.4-8.2); TRIGLYCERIDES 67 mg/dL (15-150); UREA NITROGEN, BLOOD 17 mg/dL (7-18)
[2021-09-07 15:20] LABS: GLOMERULAR FILTR. RATE CALC > 60 mL/min (>60)
== END | disposition home or self-care (01) ==
LOC: LABMN 13:08
PROVIDERS: ATTEND Internal Medicine Cardiovascular Disease
DX: I11.0 Hypertensive heart disease with heart failure (principal); I50.9 Heart failure, unspecified; E78.00 Pure hypercholesterolemia, unspecified; D56.5 Hemoglobin E-beta thalassemia; R73.09 Other abnormal glucose; E55.9 Vitamin D deficiency, unspecified
CPT/HCPCS: 80053; 80061; 82306; 83036; 83735; 83880; 84439; 84443; 84480; 85025

== ENCOUNTER → 2021-09-21 | Outpatient (CLI) | payer MEDICARE, OTHER ==
[~2021-09-21] VITALS: Ht 177.8 cm; Wt 77.1 kg
[2021-09-21 10:09] VITALS: BP 102/48
== END | disposition home or self-care (01) ==
LOC: SRCNTR 09:47
PROVIDERS: ATTEND Hospitalist
DX: I11.0 Hypertensive heart disease with heart failure (principal); I50.9 Heart failure, unspecified; E78.5 Hyperlipidemia, unspecified; M19.90 Unspecified osteoarthritis, unspecified site; K21.9 Gastro-esophageal reflux disease without esophagitis; I21.A1 Myocardial infarction type 2; B19.20 Unspecified viral hepatitis C without hepatic coma; G47.33 Obstructive sleep apnea (adult) (pediatric); I25.10 Atherosclerotic heart disease of native coronary artery without angina pectoris; M54.50 Low back pain, unspecified; K92.2 Gastrointestinal hemorrhage, unspecified
CPT/HCPCS: G0463

== ENCOUNTER → 2022-04-19 | Outpatient (CLI) | payer MEDICARE, OTHER ==
[~2022-04-19] VITALS: Ht 180.3 cm; Wt 78.3 kg
[2022-04-19 12:16] VITALS: BP 120/56
== END | disposition home or self-care (01) ==
LOC: SRCNTR 10:21
PROVIDERS: ATTEND Hospitalist
DX: I11.0 Hypertensive heart disease with heart failure (principal); I50.9 Heart failure, unspecified; E78.5 Hyperlipidemia, unspecified; J44.9 Chronic obstructive pulmonary disease, unspecified; I25.10 Atherosclerotic heart disease of native coronary artery without angina pectoris; M19.90 Unspecified osteoarthritis, unspecified site; K21.9 Gastro-esophageal reflux disease without esophagitis; B19.20 Unspecified viral hepatitis C without hepatic coma; G47.33 Obstructive sleep apnea (adult) (pediatric); G89.4 Chronic pain syndrome; I25.2 Old myocardial infarction; K92.2 Gastrointestinal hemorrhage, unspecified; Z95.810 Presence of automatic (implantable) cardiac defibrillator; Z95.5 Presence of coronary angioplasty implant and graft; Z79.82 Long term (current) use of aspirin; Z79.01 Long term (current) use of anticoagulants; Z79.899 Other long term (current) drug therapy; Z88.8 Allergy status to other drugs, medicaments and biological substances
CPT/HCPCS: G0463; Z7500

== ENCOUNTER → 2022-07-20 | Outpatient (CLI) | payer MEDICARE, OTHER ==
[~2022-07-20] VITALS: Ht 175.3 cm; Wt 81.5 kg
[~2022-07-20] MED LIST changes: +CHOL500013 PO
[2022-07-20 10:17] VITALS: BP 97/57
== END | disposition home or self-care (01) ==
LOC: SRCNTR 09:53
PROVIDERS: ATTEND Hospitalist
DX: I11.0 Hypertensive heart disease with heart failure (principal); I50.9 Heart failure, unspecified; Z09 Encounter for follow-up examination after completed treatment for conditions other than malignant neoplasm; E78.5 Hyperlipidemia, unspecified; M19.90 Unspecified osteoarthritis, unspecified site; K21.9 Gastro-esophageal reflux disease without esophagitis; G47.33 Obstructive sleep apnea (adult) (pediatric); I25.10 Atherosclerotic heart disease of native coronary artery without angina pectoris; M54.50 Low back pain, unspecified; M10.9 Gout, unspecified; B19.20 Unspecified viral hepatitis C without hepatic coma; I21.A1 Myocardial infarction type 2; K92.2 Gastrointestinal hemorrhage, unspecified
CPT/HCPCS: 81001; G0463

== ENCOUNTER → 2022-10-17 | Outpatient (CLI) | payer MEDICARE, OTHER ==
[~2022-10-17] VITALS: Ht 175.3 cm; Wt 77.0 kg
[~2022-10-17] MED LIST changes: +ALBU18HF12 IH; +ALLO-97 PO; +ATOR20TA PO; -ATOR20TA86 PO; +NALO25TA4 PO; -PANT20TA18 PO
[2022-10-17 14:13] VITALS: BP 98/47
== END | disposition home or self-care (01) ==
LOC: SRCNTR 13:47
PROVIDERS: ATTEND Hospitalist
DX: Z09 Encounter for follow-up examination after completed treatment for conditions other than malignant neoplasm (principal); I25.10 Atherosclerotic heart disease of native coronary artery without angina pectoris; I49.8 Other specified cardiac arrhythmias; E78.5 Hyperlipidemia, unspecified; K21.9 Gastro-esophageal reflux disease without esophagitis; K92.2 Gastrointestinal hemorrhage, unspecified; I11.0 Hypertensive heart disease with heart failure; I50.9 Heart failure, unspecified; B19.20 Unspecified viral hepatitis C without hepatic coma; G47.33 Obstructive sleep apnea (adult) (pediatric); M54.50 Low back pain, unspecified; G89.4 Chronic pain syndrome; M10.9 Gout, unspecified; M19.90 Unspecified osteoarthritis, unspecified site
CPT/HCPCS: G0463; Z7500

== ENCOUNTER → 2022-12-13 | Outpatient (CLI) | payer MEDICARE, OTHER ==
[~2022-12-13] VITALS: Ht 175.3 cm; Wt 78.8 kg
[2022-12-13 13:31] VITALS: BP 135/75; PULSE 63; RESP 18; TEMP 99.1; O2SAT 100
== END | disposition home or self-care (01) ==
LOC: SRCNTR 13:15
PROVIDERS: ATTEND Hospitalist
DX: Z09 Encounter for follow-up examination after completed treatment for conditions other than malignant neoplasm (principal); I11.0 Hypertensive heart disease with heart failure; I50.9 Heart failure, unspecified; M19.90 Unspecified osteoarthritis, unspecified site; E78.5 Hyperlipidemia, unspecified; K21.9 Gastro-esophageal reflux disease without esophagitis; B19.20 Unspecified viral hepatitis C without hepatic coma; G47.33 Obstructive sleep apnea (adult) (pediatric); I25.10 Atherosclerotic heart disease of native coronary artery without angina pectoris; M54.50 Low back pain, unspecified; G89.4 Chronic pain syndrome; I25.2 Old myocardial infarction; M10.9 Gout, unspecified; Z85.46 Personal history of malignant neoplasm of prostate
CPT/HCPCS: G0463; Z7500

== ENCOUNTER → 2023-03-21 | Outpatient (CLI) | payer MEDICARE, OTHER ==
[~2023-03-21] VITALS: Ht 175.3 cm; Wt 76.5 kg
[~2023-03-21] MED LIST changes: -CHOL500013 PO
[2023-03-21 10:37] VITALS: BP 139/80; PULSE 64; RESP 17; TEMP 98.2; O2SAT 98
== END | disposition home or self-care (01) ==
LOC: SRCNTR 10:16
PROVIDERS: ATTEND Hospitalist
DX: I11.0 Hypertensive heart disease with heart failure (principal); I50.9 Heart failure, unspecified; G89.29 Other chronic pain; M19.90 Unspecified osteoarthritis, unspecified site; E78.5 Hyperlipidemia, unspecified; K21.9 Gastro-esophageal reflux disease without esophagitis; K92.2 Gastrointestinal hemorrhage, unspecified; B19.20 Unspecified viral hepatitis C without hepatic coma; G47.33 Obstructive sleep apnea (adult) (pediatric); I25.10 Atherosclerotic heart disease of native coronary artery without angina pectoris; M10.9 Gout, unspecified; Z88.8 Allergy status to other drugs, medicaments and biological substances; Z79.899 Other long term (current) drug therapy; Z79.82 Long term (current) use of aspirin
CPT/HCPCS: G0463; Z7500

== ENCOUNTER → 2023-04-04 | Outpatient (CLI) | payer MEDICARE, OTHER ==
[2023-04-04 09:42] LABS: BASOPHILS % (AUTO) 0.4 % (0.0-2.0); EOSINOPHILS % (AUTO) 2.1 % (1.0-6.0); HEMATOCRIT 36.4 % (41-53); HEMOGLOBIN 12.3 g/dL (13.5-17.5); LYMPHOCYTES % (AUTO) 32.8 % (22.0-44.0); MEAN CORPUSCULAR HEMOGLOBIN 32.4 pg (26.0-34.0); MEAN CORPUSCULAR HGB CONC 33.9 G/dL (31.0-37.0); MEAN CORPUSCULAR VOLUME 96 fL (80-100); MONOCYTES # (AUTO) 0.5 K/uL (0.1-1.0); MONOCYTES % (AUTO) 8.7 % (2.0-9.0); NEUTROPHILS # (AUTO) 3.5 K/uL (1.8-7.7); PLATELET COUNT (AUTO) 192 K/uL (150-450); RED BLOOD CELL COUNT(AUTO) 3.81 MIL/uL (4.50-5.90); RED CELL DISTRIBUTION WIDTH 14.6 % (11.5-14.5); WHITE BLOOD COUNT (AUTO) 6.2 K/uL (4.5-11.0)
[2023-04-04 10:00] LABS: ALANINE AMINOTRANSFERASE 19 U/L (12-78); ALBUMIN 3.8 g/dL (3.4-5.0); ALKALINE PHOSPHATASE 91 U/L (46-116); ANION GAP 9 mmol/L (8-16); ASPARTATE AMINOTRANSFERASE 16 U/L (15-37); BILIRUBIN,TOTAL 0.2 mg/dL (0.1-1.0); CALCIUM, TOTAL 9.4 mg/dL (8.8-10.5); CARBON DIOXIDE 31 mmol/L (22-29); CHLORIDE 99 mmol/L (98-107); CHOL/HDL RATIO 2.8 (4.2-7.3); CHOLESTEROL 128 mg/dL (131-200); CREATININE 1.03 mg/dL (0.60-1.30); GLOMERULAR FILTR. RATE CALC > 60 mL/min (>60); GLUCOSE,RANDOM 101 mg/dL (70-110); HDL CHOLESTEROL 46 mg/dL (40-60); LDL CHOL (CALC.) 68 mg/dL (0-130); POTASSIUM 4.2 mmol/L (3.5-5.1); SODIUM SERUM 139 mmol/L (136-145); TOTAL PROTEIN, SERUM 8.9 g/dL (6.4-8.2); TRIGLYCERIDES 72 mg/dL (15-150); UREA NITROGEN, BLOOD 17 mg/dL (7-18)
[2023-04-04 10:04] LABS: HEMOGLOBIN A1C 5.8 % (3.8-5.6)
== END | disposition home or self-care (01) ==
LOC: LABMN 08:26
PROVIDERS: ATTEND Hospitalist
DX: Z01.89 Encounter for other specified special examinations (principal); I10 Essential (primary) hypertension; E78.5 Hyperlipidemia, unspecified; Z79.899 Other long term (current) drug therapy
CPT/HCPCS: 80053; 80061; 83036; 85025

== ENCOUNTER → 2023-08-02 | Outpatient (CLI) | payer MEDICARE, OTHER ==
[~2023-08-02] VITALS: Ht 175.3 cm; Wt 76.0 kg
[~2023-08-02] MED LIST changes: +OXYC10TA59 PO; -SOTA80 PO; +SOTA80TA90 PO
[2023-08-02 13:57] VITALS: BP 125/76; PULSE 67; RESP 18; TEMP 97.7; O2SAT 98
== END | disposition home or self-care (01) ==
LOC: SRCNTR 13:22
PROVIDERS: ATTEND Hospitalist
DX: I11.0 Hypertensive heart disease with heart failure (principal); I50.9 Heart failure, unspecified; E11.9 Type 2 diabetes mellitus without complications; G89.4 Chronic pain syndrome; M19.90 Unspecified osteoarthritis, unspecified site; E78.5 Hyperlipidemia, unspecified; K21.9 Gastro-esophageal reflux disease without esophagitis; M10.9 Gout, unspecified; I25.10 Atherosclerotic heart disease of native coronary artery without angina pectoris; G47.33 Obstructive sleep apnea (adult) (pediatric); Z79.899 Other long term (current) drug therapy
CPT/HCPCS: G0463

== ENCOUNTER → 2023-11-12 | Outpatient (CLI) | payer MEDICARE, OTHER ==
[~2023-11-12] VITALS: Ht 175.3 cm; Wt 77.0 kg
[2023-11-12 13:38] VITALS: BP 121/68; PULSE 80; RESP 21; TEMP 98.2; O2SAT 97
== END | disposition home or self-care (01) ==
LOC: SRCNTR 13:06
PROVIDERS: ATTEND Hospitalist
DX: I13.2 Hypertensive heart and chronic kidney disease with heart failure and with stage 5 chronic kidney disease, or end stage renal disease (principal); N18.6 End stage renal disease; E78.5 Hyperlipidemia, unspecified; R00.0 Tachycardia, unspecified; G89.29 Other chronic pain; G89.4 Chronic pain syndrome; M10.9 Gout, unspecified; B19.20 Unspecified viral hepatitis C without hepatic coma; I50.9 Heart failure, unspecified; K21.9 Gastro-esophageal reflux disease without esophagitis; M19.90 Unspecified osteoarthritis, unspecified site; Z85.46 Personal history of malignant neoplasm of prostate; D64.89 Other specified anemias; I21.9 Acute myocardial infarction, unspecified; Z79.899 Other long term (current) drug therapy; I25.10 Atherosclerotic heart disease of native coronary artery without angina pectoris; Z88.8 Allergy status to other drugs, medicaments and biological substances
CPT/HCPCS: G0463

== ENCOUNTER → 2024-07-16 | Outpatient (CLI) | payer MEDICARE, OTHER ==
[~2024-07-16] VITALS: Ht 175.3 cm; Wt 71.0 kg
[~2024-07-16] MED LIST changes: +AMIO200T68 PO; +COLC-3 PO; -COLC0.6T73 PO; +EMPA10TA3 PO; +FURO20TA5 PO; -FURO40 PO; -HYDR25TA84 PO; -ISOS20TA9 PO; +MEXI150C17 PO; -NALO25TA4 PO; +SACU1TAB PO; +SPIR-37 PO
[2024-07-16 13:28] VITALS: BP 94/61; PULSE 68; RESP 22; TEMP 98.3; O2SAT 97
== END | disposition home or self-care (01) ==
LOC: SRCNTR 12:59
PROVIDERS: ATTEND Hospitalist
DX: I11.0 Hypertensive heart disease with heart failure (principal); I50.9 Heart failure, unspecified; B19.20 Unspecified viral hepatitis C without hepatic coma; C61 Malignant neoplasm of prostate; E78.5 Hyperlipidemia, unspecified; G47.33 Obstructive sleep apnea (adult) (pediatric); G89.4 Chronic pain syndrome; I25.10 Atherosclerotic heart disease of native coronary artery without angina pectoris; I25.2 Old myocardial infarction; K21.9 Gastro-esophageal reflux disease without esophagitis; Z79.01 Long term (current) use of anticoagulants; Z79.82 Long term (current) use of aspirin; Z79.84 Long term (current) use of oral hypoglycemic drugs; Z79.899 Other long term (current) drug therapy; Z85.46 Personal history of malignant neoplasm of prostate; Z86.19 Personal history of other infectious and parasitic diseases; Z88.5 Allergy status to narcotic agent; Z88.8 Allergy status to other drugs, medicaments and biological substances; Z95.810 Presence of automatic (implantable) cardiac defibrillator
CPT/HCPCS: G0463